=== PATIENT | male | born 1935 | race Caucasian/White ===

== ENCOUNTER 2017-09-23 12:04 | Observation (INO) ==
--- NOTE | 2017-09-23 13:28 | History & Physical Report ---
*Admission Date: 09/23/17 <Arcelia Augustin 09/23/17 13:28> *Chief complaint: abdominal pain <Arcelia Augustin 09/23/17 13:28> *History of present illness: Mr. Cross is a 81yo male with a hx of HTN who began having RUQ pain yesterday along with some nausea. He has felt bloated as well. He presented to the office of [facility] for evaluation. His WBC was elevated. He had a RUQ U/S showing cholecystitis and cholelithiasis. He will be admitted for a surgical consult. <Arcelia Augustin 09/23/17 15:13> [facility] History Medical History: Reports:: Hypertension, Transient Ischemic Attacks (TIA) < Arcelia Augustin 09/23/17 13:42> Laterality Cases: Bilateral: Cataract <Arcelia Augustin 09/23/17 13:42> - *Social History Smoking Status: Never smoker <Arcelia Augustin 09/23/17 13:42> *Family Hx:: no Coronary Artery Disease, no Heart Attack, no Hyperlipidemia, no Hypertension, no Stroke <Arcelia Augustin 09/23/17 13:42> Review of Systems - Constitutional Reports weakness, Denies chills, Denies fatigue, Denies fever(s) <Arcelia Augustin 09/23/17 13:42> - Eyes Denies blurry vision, Denies double vision <Arcelia Augustin 09/23/17 13:42> - ENT Denies nasal congestion, Denies sore throat <Arcelia Augustin 09/23/17 13:42> - *Cardiovascular Denies chest pain, Denies shortness of breath, Denies leg swelling <Arcelia Augustin 09/23/17 13:42> - *Respiratory Denies cough, Denies shortness of breath <Arcelia Augustin 09/23/17 13:42> - *Gastrointestinal Reports abdominal pain (RUQ), Reports nausea, Denies loose stools, Denies vomiting <Arcelia Augustin 09/23/17 13:42> - *Genitourinary Denies difficulty urinating, Denies painful urination <Arcelia Augustin 13:42> - *Musculoskeletal Denies joint pain <Arcelia Augustin - 09/23/17 13:42> - *Neurologic Denies headache(s), Denies dizziness <Arcelia Augustin - 09/23/17 13:42> Meds Home Medications Medication Instructions Recorded Confirmed Type Losartan Potassium 100 mg PO DAILY 09/23/17 09/23/17 History <Clayton Avalos - 09/23/17 15:15> Allergies Allergy/AdvReac Type Severity Reaction Status Date / Time No Known Allergies Allergy Unverified 03/16/17 14:29 <Clayton Avalos - 09/23/17 15:15> Exam Vital signs and Labs for Last 24 Hours: Temp Pulse Resp BP Pulse Ox 97.2 F L 52 L 20 180/90 95 09/23/17 14:02 09/23/17 14:02 09/23/17 14:02 09/23/17 14:02 09/23/17 14:02 Laboratory Results - last 24 hr 09/23/17 13:50: WBC 13.7 H, RBC 4.78, Hgb 14.2, Hct 42.9, MCV 89.8, MCH 29.7, MCHC 33.1, RDW 13.3, Plt Count 228, MPV 7.8, Neut % (Auto) 80.0, Lymph % (Auto) 14.0, [place] % (Auto) 4.1, Eos % (Auto) 1.6, Baso % (Auto) 0.2, Neut # (Auto) 11.0 H, Lymph # (Auto) 1.9, [place] # (Auto) 0.6, Eos # (Auto) 0.2, Baso # (Auto) 0.0 09/23/17 13:50: Sodium 138, Potassium 3.9, Chloride 103, Carbon Dioxide 26, Anion Gap 12.9, BUN 12, Creatinine 1.06, Estimated Creat Clear 83, Estimated GFR 67, Est GFR ( Amer) 82, Glucose 107 H, Calcium 8.3 L, Total Bilirubin 0.9, AST 22, ALT 20, Alkaline Phosphatase 91, Total Protein 7.3, Albumin 3.4, Globulin 3.9 H, Albumin/Globulin Ratio 0.9 L, Amylase 63 09/23/17 13:50: Lipase 101 <Clayton Avalos - 09/23/17 15:15> I & O for Last 24 hours: Intake & Output 09/21/17 09/22/17 09/23/17 09/24/17 11:59 11:59 11:59 11:59 Weight 230 lb 2 oz <Clayton Avalos - 09/23/17 15:15> - Constitutional no acute distress <Arcelia Augustin 09/23/17 13:42> - *Routine HEENT Exam Head: Present: normocephalic, atraumatic <Arcelia Augustin 09/23/17 13:42> Eye: Present: EOMI, PERRL <Arcelia Augustin 09/23/17 13:42> ENT: Present: mucous membranes dry <Arcelia Augustin 09/23/17 13:42> - *Routine Neck Exam Present: supple, full ROM. Absent: carotid bruit <Arcelia Augustin 09/23/17 13 :42> - *Routine Respiratory Exam Present: CTA bilaterally <Arcelia Augustin 09/23/17 13:42> - *Routine Cardiovascular Exam Present: RRR <Arcelia Augustin 09/23/17 13:42> - *Routine Abdominal Exam Present: soft, normoactive bowel sounds, tenderness (RUQ) <Arcelia Augustin 13:42> - *Routine Extremities Exam Absent: edema <Arcelia Augustin 09/23/17 13:42> - *Routine Skin Exam Present: intact <Arcelia Augustin 09/23/17 13:42> - *Routine Neurological Exam Present: alert, oriented X3 <Arcelia Augustin 09/23/17 13:42> H&P: Result - Labs Labs: Short CBC 09/23/17 Range/Units 13:50 WBC 13.7 H (4.8-10.8) K/mm3 Hgb 14.2 (14.1-18.0) g/dL Hct 42.9 (42.0-52.0) % Plt Count 228 (142-424) K/mm3 BMP 09/23/17 13:50 Sodium 138 Potassium 3.9 Chloride 103 Carbon Dioxide 26 BUN 12 Creatinine 1.06 Glucose 107 H Calcium 8.3 L Liver Function 09/23/17 Range/Units 13:50 Total Bilirubin 0.9 (0.2-1.0) mg/dL AST 22 (15-37) U/L ALT 20 (12-78) U/L Alkaline Phosphatase 91 (46-116) U/L Albumin 3.4 (3.4-5.0) gm/dL <Clayton Avalos - 09/23/17 15:15> Assessment and Plan (1) Cholecystitis Current visit: Yes Status: Acute Category: Medical Code(s): K81.9 - Cholecystitis, unspecified (2) Cholelithiasis Current visit: Yes Status: Acute Category: Medical Code(s): K80.20 - Calculus of gallbladder without cholecystitis without obstruction (3) Hypertension Current visit: Yes Status: Acute Category: Medical Code(s): I10 - Essential (primary) hypertension <Clayton Avalos - 09/23/17 15:15> (1) Cholecystitis Current visit: Yes Status: Acute Category: Medical Code(s): K81.9 - Cholecystitis, unspecified (2) Cholelithiasis Current visit: Yes Status: Acute Category: Medical Code(s): K80.20 - Calculus of gallbladder without cholecystitis without obstruction (3) Hypertension Current visit: Yes Status: Acute Category: Medical Code(s): I10 - Essential (primary) hypertension <Arcelia Augustin - 09/23/17 15:12> - Assessment and plan all Dx Assessment and Plan for all problems:: Saw patient agree with above note. Case discussed with Dr. Poon. Pt started on Zosyn. <Clayton Avalos - 09/23/17 15:15> Call report on RUQ U/S showed cholecystitis and cholelithiasis. The patient will be admitted and started on IVF's and antiemetics. Surgery will be consulted. <Arcelia Augustin - 09/23/17 15:13>
[2017-09-23 14:07] LABS: Basophils % 0.2 % (0.1-2.0); Eosinophils # 0.2 K/mm3 (0.0-0.4); Eosinophils % 1.6 % (0.1-12.0); Hematocrit 42.9 % (42.0-52.0); Hemoglobin 14.2 g/dL (14.1-18.0); Lymphocytes # 1.9 K/mm3 (0.7-4.5); Mean Corpuscular HGB Conc 33.1 g/dL (31.8-35.4); Mean Corpuscular Hemoglobin 29.7 pg (27.0-31.2); Mean Corpuscular Volume 89.8 fl (80-94); Mean Platelet Volume 7.8 fl (7.4-10.4); Monocytes # 0.6 K/mm3 (0.1-1.0); Monocytes % 4.1 % (1.7-9.3); Platelet Count 228 K/mm3 (142-424); Red Blood Count 4.78 M/mm3 (4.60-6.20); Red Cell Distribution Width 13.3 % (11.5-17.5); White Blood Count 13.7 K/mm3 (4.8-10.8)
--- NOTE | 2017-09-23 14:09 | Consult Report ---
*Admission Date: 09/23/17 *Chief complaint: Right upper quadrant pain *History of present illness: This is a 81-year-old gentleman seen in consultation from Dr. Avalos for acute calculus cholecystitis. Please see a forwarded copy of the patient's history of present illness from his admission H&P (below): Mr. Cross is a 81yo male with a hx of HTN who began having RUQ pain yesterday along with some nausea. He has felt bloated as well. He presented to the office of [facility] for evaluation. His WBC was elevated. He had a RUQ U/S showing cholecystitis and cholelithiasis. He will be admitted for a surgical consult. Review of Systems - *Neurologic Reports weakness, Denies headache(s), Denies dizziness [facility] History Medical History: Reports:: Hypertension, Transient Ischemic Attacks (TIA) Denies:: Cancer, Diabetes Mellitus Type 1, Diabetes Mellitus Type 2, MRSA Laterality Cases: Bilateral: Cataract Other Surgeries: Yes: No Previous Surgery Amputation: No - *Social History Educational Level: Completed High School Smoking Status: Never smoker Alcohol Intake: never Occupational Status: retired Household Members: spouse - Psychiatric History Expresses thoughts of harming self/others: None Suicide Plan Description: No Plan *Family Hx:: no Coronary Artery Disease, no Heart Attack, no Hyperlipidemia, no Hypertension, no Stroke Meds Home Medications Medication Instructions Recorded Confirmed Type Losartan Potassium 100 mg PO DAILY 09/23/17 09/23/17 History Allergies Allergy/AdvReac Type Severity Reaction Status Date / Time No Known Allergies Allergy Unverified 03/16/17 14:29 Exam Vital signs and Labs for Last 24 Hours: Temp Pulse Resp BP Pulse Ox 97.2 F L 52 L 20 180/90 95 09/23/17 14:02 09/23/17 14:02 09/23/17 14:02 09/23/17 14:02 09/23/17 14:02 I & O for Last 24 hours: Intake & Output 09/21/17 09/22/17 09/23/17 09/24/17 11:59 11:59 11:59 11:59 Weight 230 lb 2 oz - Constitutional no acute distress - *Routine Respiratory Exam Absent: respiratory distress - *Routine Cardiovascular Exam Present: RRR - *Routine Abdominal Exam Present: soft, tenderness Comments: RUQ TTP Results - Imaging US - abdomen: report reviewed Assessment and Plan (1) Cholecystitis Current visit: Yes Status: Acute Category: Medical Code(s): K81.9 - Cholecystitis, unspecified (2) Hypertension Current visit: Yes Status: Acute Category: Medical Code(s): I10 - Essential (primary) hypertension (3) Cholelithiasis Current visit: Yes Status: Acute Category: Medical Code(s): K80.20 - Calculus of gallbladder without cholecystitis without obstruction (4) Acute cholecystitis without calculus Current visit: Yes Status: Acute Category: Surgical Code(s): K81.0 - Acute cholecystitis IV antibiotics NPO after midnight for cholecystectomy tomorrow -I have discussed the risks and benefits of operative intervention patient agrees to proceed
[2017-09-23 14:16] LABS: Albumin Level 3.4 gm/dL (3.4-5.0); Albumin/Globulin Ratio 0.9 (1.1-1.8); Anion Gap 12.9 mEq/L (5-15); Bilirubin,Total 0.9 mg/dL (0.2-1.0); Calcium 8.3 mg/dL (8.5-10.1); Globulin 3.9 gm/dl (1.3-3.2); Potassium 3.9 mmoL/L (3.5-5.1); Total Protein,Serum 7.3 gm/dL (6.4-8.2)
--- NOTE | 2017-09-23 14:27 | Pharmacy Consult Notes ---
[facility] Pharmacy VTE Monitoring - Patient Demographics Admission date: 09/23/17 Report Date: 09/23/17 Time: 14:27 Allergies/Adverse Reactions: Patient Allergies No Known Allergies Allergy (Unverified 03/16/17 14:29) Height: 1.78 m Weight: 104.383 kg Patient Problems: Current Active Problems Cholecystitis (Acute) Hypertension (Acute) Cholelithiasis (Acute) Acute cholecystitis without calculus (Acute) - VTE Risk Labs: VTE Related Lab Results Hgb 14.2 g/dL (14.1-18.0) 09/23/17 13:50 Hct 42.9 % (42.0-52.0) 09/23/17 13:50 Plt Count 228 K/mm3 (142-424) 09/23/17 13:50 BUN 12 mg/dL (7-18) 09/23/17 13:50 Creatinine 1.06 mg/dL (0.70-1.30) 09/23/17 13:50 Estimated Creat Clear 83 mL/min (0-300) 09/23/17 13:50 Was VTE Risk Assessment Performed: Yes VTE Score: 1 VTE Risk Level: Very Low Risk Clinical Trial Participant: No - Prophylaxis VTE Prophylaxis Ordered?: Yes Types of VTE Prophylaxis: TEDS Knee High
--- NOTE | 2017-09-24 07:06 | Progress Note ---
Subjective Patient reports: feels better Exam Vital signs and Labs for Last 24 Hours: Temp Pulse Resp BP Pulse Ox 98.0 F 69 14 131/62 98 09/24/17 05:03 09/24/17 05:03 09/24/17 05:03 09/24/17 05:03 09/24/17 05:03 Laboratory Results - last 24 hr 09/23/17 13:50: WBC 13.7 H, RBC 4.78, Hgb 14.2, Hct 42.9, MCV 89.8, MCH 29.7, MCHC 33.1, RDW 13.3, Plt Count 228, MPV 7.8, Neut % (Auto) 80.0, Lymph % (Auto) 14.0, [place] % (Auto) 4.1, Eos % (Auto) 1.6, Baso % (Auto) 0.2, Neut # (Auto) 11.0 H, Lymph # (Auto) 1.9, [place] # (Auto) 0.6, Eos # (Auto) 0.2, Baso # (Auto) 0.0 09/23/17 13:50: Sodium 138, Potassium 3.9, Chloride 103, Carbon Dioxide 26, Anion Gap 12.9, BUN 12, Creatinine 1.06, Estimated Creat Clear 83, Estimated GFR 67, Est GFR ( Amer) 82, Glucose 107 H, Calcium 8.3 L, Total Bilirubin 0.9, AST 22, ALT 20, Alkaline Phosphatase 91, Total Protein 7.3, Albumin 3.4, Globulin 3.9 H, Albumin/Globulin Ratio 0.9 L, Amylase 63 09/23/17 13:50: Lipase 101 I & O for Last 24 hours: Intake & Output 09/21/17 09/22/17 09/23/17 09/24/17 11:59 11:59 11:59 11:59 Intake Total 1447 / 1447 Balance 1447 / 1447 Weight 230 lb 2 oz - Constitutional no acute distress - *Routine Respiratory Exam Absent: respiratory distress - *Routine Cardiovascular Exam Present: RRR - *Routine Abdominal Exam Present: soft Progress Note: A&P (1) Cholecystitis Status: Acute Assessment and plan: continue abx laparoscopic cholecystectomy later today Current Visit: Yes (2) Cholelithiasis Status: Acute Current Visit: Yes (3) Hypertension Status: Acute Current Visit: Yes
--- NOTE | 2017-09-24 07:57 | Progress Note ---
<Arcelia Augustin - Last Filed: 09/24/17 07:55> Internal Medicine - PN: Subj *Date: 09/24/17 *Time: 07:55 Interval history: Patient is doing well today. He states his pain has almost resolved. He slept well last night. He is n.p.o. today for surgery. Exam Vital signs and Labs for Last 24 Hours: Temp Pulse Resp BP Pulse Ox 97.4 F L 66 18 147/93 97 09/24/17 07:51 09/24/17 07:51 09/24/17 07:51 09/24/17 07:51 09/24/17 07:51 Laboratory Results - last 24 hr 09/23/17 13:50: WBC 13.7 H, RBC 4.78, Hgb 14.2, Hct 42.9, MCV 89.8, MCH 29.7, MCHC 33.1, RDW 13.3, Plt Count 228, MPV 7.8, Neut % (Auto) 80.0, Lymph % (Auto) 14.0, [place] % (Auto) 4.1, Eos % (Auto) 1.6, Baso % (Auto) 0.2, Neut # (Auto) 11.0 H, Lymph # (Auto) 1.9, [place] # (Auto) 0.6, Eos # (Auto) 0.2, Baso # (Auto) 0.0 09/23/17 13:50: Sodium 138, Potassium 3.9, Chloride 103, Carbon Dioxide 26, Anion Gap 12.9, BUN 12, Creatinine 1.06, Estimated Creat Clear 83, Estimated GFR 67, Est GFR ( Amer) 82, Glucose 107 H, Calcium 8.3 L, Total Bilirubin 0.9, AST 22, ALT 20, Alkaline Phosphatase 91, Total Protein 7.3, Albumin 3.4, Globulin 3.9 H, Albumin/Globulin Ratio 0.9 L, Amylase 63 09/23/17 13:50: Lipase 101 I & O for Last 24 hours: Intake & Output 09/21/17 09/22/17 09/23/17 09/24/17 11:59 11:59 11:59 11:59 Intake Total 1447 / 1447 Balance 1447 / 1447 Weight 230 lb 2 oz - Constitutional no acute distress - *Routine Respiratory Exam Present: CTA bilaterally - *Routine Cardiovascular Exam Present: RRR - *Routine Abdominal Exam Present: soft, normoactive bowel sounds, tenderness (mild in the RUQ) - *Routine Extremities Exam Absent: edema Assessment and Plan (1) Cholecystitis Current visit: Yes Status: Acute Category: Medical Code(s): K81.9 - Cholecystitis, unspecified (2) Cholelithiasis Current visit: Yes Status: Acute Category: Medical Code(s): K80.20 - Calculus of gallbladder without cholecystitis without obstruction (3) Hypertension Current visit: Yes Status: Acute Category: Medical Code(s): I10 - Essential (primary) hypertension - Assessment and plan all Dx Assessment and Plan for all problems:: Cholecystectomy planned for today. <Clayton Avalos - Last Filed: 09/24/17 08:42> Internal Medicine - PN: Jose *Date: 09/24/17 *Time: 08:41 Exam Vital signs and Labs for Last 24 Hours: Temp Pulse Resp BP Pulse Ox 97.4 F L 66 18 147/93 97 09/24/17 08:00 09/24/17 08:00 09/24/17 08:00 09/24/17 08:00 09/24/17 08:00 Laboratory Results - last 24 hr 09/23/17 13:50: WBC 13.7 H, RBC 4.78, Hgb 14.2, Hct 42.9, MCV 89.8, MCH 29.7, MCHC 33.1, RDW 13.3, Plt Count 228, MPV 7.8, Neut % (Auto) 80.0, Lymph % (Auto) 14.0, [place] % (Auto) 4.1, Eos % (Auto) 1.6, Baso % (Auto) 0.2, Neut # (Auto) 11.0 H, Lymph # (Auto) 1.9, [place] # (Auto) 0.6, Eos # (Auto) 0.2, Baso # (Auto) 0.0 09/23/17 13:50: Sodium 138, Potassium 3.9, Chloride 103, Carbon Dioxide 26, Anion Gap 12.9, BUN 12, Creatinine 1.06, Estimated Creat Clear 83, Estimated GFR 67, Est GFR ( Amer) 82, Glucose 107 H, Calcium 8.3 L, Total Bilirubin 0.9, AST 22, ALT 20, Alkaline Phosphatase 91, Total Protein 7.3, Albumin 3.4, Globulin 3.9 H, Albumin/Globulin Ratio 0.9 L, Amylase 63 09/23/17 13:50: Lipase 101 I & O for Last 24 hours: Intake & Output 09/21/17 09/22/17 09/23/17 09/24/17 11:59 11:59 11:59 11:59 Intake Total 1447 / 1447 Balance 1447 / 1447 Weight 230 lb 2 oz Assessment and Plan (1) Cholecystitis Current visit: Yes Status: Acute Category: Medical Code(s): K81.9 - Cholecystitis, unspecified (2) Cholelithiasis Current visit: Yes Status: Acute Category: Medical Code(s): K80.20 - Calculus of gallbladder without cholecystitis without obstruction (3) Hypertension Current visit: Yes Status: Acute Category: Medical Code(s): I10 - Essential (primary) hypertension - Assessment and plan all Dx Assessment and Plan for all problems:: Saw patient, agree with above note.
--- NOTE | 2017-09-24 14:36 | Progress Note ---
[facility] Anesthesia Checklist - Structural Data Admitted From: Home Planned Operative Procedure/s: donato jorge Consent for Planned Operative Procedure(s) Verified: Yes - Airway Assessment C-Spine Mobility Assessed: Yes TMJ Mobility Assessed: Yes Dentition: Poor Dentition - Neurological Assessment Level of Consciousness: Awake, Alert, Appropriate - Anesthesia Plan Anesthesia Risk discussed: Yes Anesthesia Plan: Verified ASA Class: II Anesthesia Type: General [facility] Anesthesia HX I have reviewed the patient's past medical history: Yes Medical History: Reports:: Hypertension, Transient Ischemic Attacks (TIA) Denies:: Cancer, Diabetes Mellitus Type 1, Diabetes Mellitus Type 2, MRSA Laterality Cases: Bilateral: Cataract Other Surgeries: Yes: No Previous Surgery Amputation: No *Family Hx:: no Coronary Artery Disease, no Heart Attack, no Hyperlipidemia, no Hypertension, no Stroke
--- NOTE | 2017-09-24 14:37 | Progress Note ---
[facility] Anesthesia Record Part I Intake, IV Amount: 1,500 Estimated blood loss (mL): 0 Urine output (mL): 0 Blood Pressure: 117/60 SaO2: 94 Pulse Rate: 57 Respiratory Rate: 12 Temperature: 97.8 F Patient is:: Awake, Stable Stable to PACU at:: 14:35
--- NOTE | 2017-09-24 14:37 | Operative Note ---
Date of procedure: 09/24/17 Pre-op Diagnosis:: Acute calculus cholecystitis Post-op Diagnosis:: Same Procedure performed:: Laparoscopic cholecystectomy Surgeon:: Mahendra Poon MD Seam Closer(s):: Myrna CUE SELECTOR:: Jack Cota Anesthesia: GETA Estimated blood loss (mL): 15 Operative findings:: Severe thickening and inflammation of gallbladder Gallbladder essentially filled with stones Endoloops (3) utilized to control the infundibulum Operative note:: After informed consent was obtained, the patient was taken to the operating room and placed in the supine position. General anesthesia was induced and his abdomen was prepped and draped in a sterile fashion. Secondary to a small umbilical hernia, the decision was made to proceed with insufflation in the left upper quadrant. After infiltration with local anesthetic a small stab incision was made in the left upper quadrant and a Veress needle was placed in position. The abdomen was insufflated. After a small infraumbilical incision was made a 5 mm optical trocar was utilized to enter the abdomen. Under direct visualization, an 11 mm trocar was placed in the subxiphoid position. Two additional 5 mm trocars were placed in the right upper quadrant. The gallbladder was severely distended and thickened. Severe inflammation also noted. A small opening was made in the dome and some clear fluid was evacuated. The gallbladder was essentially "filled with stones". Dissection was extremely difficult and the decision was made to proceed in a "dome down approach" and utilize Endoloops at the infundibulum for control. Once the Endoloops were secured, harmonic madan were used to transect at the infundibulum. Multiple stones were noted within the gallbladder, but a number of stones spilled into the abdominal cavity and these were carefully retrieved. The gallbladder was placed in a retrieval bag and removed through the subxiphoid trocar site. The right upper quadrant was thoroughly irrigated. No active bleeding or bile leak was noted. The jennifer-close device was utilized to create somewhat of a closure at the patient's known umbilical defect by way of the infraumbilical incision. The subxiphoid site was reapproximated with 0 Ethibond. All wounds were irrigated and skin closed with 4-0 Monocryl. Steri- Strips were applied and the patient's anesthetic agents were reversed. He was extubated prior to transfer to recovery. Condition: stable Disposition: PACU Specimens:: Gallbladder and contents Complications:: No immediate
--- NOTE | 2017-09-24 14:38 | Progress Note ---
[facility] Anesthesia Record Part II Discharge Time: 15:05 Destination: floor PACU nurse assessment reviewed?: Yes Patient Condition:: Good Anesthesia Complications:: None
[2017-09-25 06:54] LABS: Basophils % 0.1 % (0.1-2.0); Eosinophils % 0.1 % (0.1-12.0); Hematocrit 37.8 % (42.0-52.0); Hemoglobin 12.1 g/dL (14.1-18.0); Lymphocytes # 1.3 K/mm3 (0.7-4.5); Lymphocytes % 9.7 K/mm3 (10-50); Mean Corpuscular HGB Conc 32.1 g/dL (31.8-35.4); Mean Corpuscular Hemoglobin 28.8 pg (27.0-31.2); Mean Corpuscular Volume 89.8 fl (80-94); Mean Platelet Volume 8.1 fl (7.4-10.4); Monocytes # 0.5 K/mm3 (0.1-1.0); Monocytes % 3.8 % (1.7-9.3); Neutrophils # 11.3 K/mm3 (1.8-7.8); Neutrophils % 86.4 % (37.0-80.0); Platelet Count 190 K/mm3 (142-424); Red Blood Count 4.21 M/mm3 (4.60-6.20); Red Cell Distribution Width 13.1 % (11.5-17.5); White Blood Count 13.1 K/mm3 (4.8-10.8)
[2017-09-25 07:03] LABS: Albumin Level 2.8 gm/dL (3.4-5.0); Albumin/Globulin Ratio 0.8 (1.1-1.8); Anion Gap 12.2 mEq/L (5-15); Bilirubin,Total 0.6 mg/dL (0.2-1.0); Calcium 7.6 mg/dL (8.5-10.1); Globulin 3.6 gm/dl (1.3-3.2); Potassium 4.2 mmoL/L (3.5-5.1); Total Protein,Serum 6.4 gm/dL (6.4-8.2)
[2017-09-25 07:26] VITALS: BP 131/67
--- NOTE | 2017-09-25 08:30 | Progress Note ---
Subjective Patient reports: feels better Narrative: Patient feels very well. He has had no abdominal pain. He has eaten a regular food. He is dressed and ready to go home. Exam Vital signs and Labs for Last 24 Hours: Temp Pulse Resp BP Pulse Ox 98.0 F 60 16 131/67 95 09/25/17 07:25 09/25/17 07:25 09/25/17 07:25 09/25/17 07:25 09/25/17 07:25 Laboratory Results - last 24 hr 09/25/17 06:14: WBC 13.1 H, RBC 4.21 L, Hgb 12.1 L, Hct 37.8 L, MCV 89.8, MCH 28.8, MCHC 32.1, RDW 13.1, Plt Count 190, MPV 8.1, Neut % (Auto) 86.4 H, Lymph % (Auto) 9.7 L, [place] % (Auto) 3.8, Eos % (Auto) 0.1, Baso % (Auto) 0.1, Neut # ( Auto) 11.3 H, Lymph # (Auto) 1.3, [place] # (Auto) 0.5, Eos # (Auto) 0.0, Baso # ( Auto) 0.0 09/25/17 06:14: Sodium 139, Potassium 4.2, Chloride 106, Carbon Dioxide 25, Anion Gap 12.2, BUN 15, Creatinine 1.17, Estimated Creat Clear 76, Estimated GFR 60, Est GFR ( Amer) 73, Glucose 126 H, Calcium 7.6 L, Total Bilirubin 0.6, AST 47 H D, ALT 52 D, Alkaline Phosphatase 66, Total Protein 6.4 , Albumin 2.8 L, Globulin 3.6 H, Albumin/Globulin Ratio 0.8 L I & O for Last 24 hours: Intake & Output 09/22/17 09/23/17 09/24/17 09/25/17 11:59 11:59 11:59 11:59 Intake Total 1447 / 1447 3340 / 3340 Balance 1447 / 1447 3340 / 3340 Weight 230 lb 2 oz - *Routine Abdominal Exam Present: soft Comments: Dressings are clean and intact. Progress Note: A&P (1) Cholecystitis Status: Acute Current Visit: Yes (2) Cholelithiasis Status: Acute Assessment and plan: Okay for discharge home to follow-up with Dr. Poon in a week or so. Current Visit: Yes (3) Hypertension Status: Acute Current Visit: Yes
--- NOTE | 2017-09-25 08:37 | Progress Note ---
Internal Medicine - PN: Subj *Date: 09/25/17 *Time: 08:35 Interval history: Patient did well overnight, tolerating a regular diet, ready to go home. Exam Vital signs and Labs for Last 24 Hours: Temp Pulse Resp BP Pulse Ox 98.0 F 60 16 131/67 95 09/25/17 07:25 09/25/17 07:25 09/25/17 07:25 09/25/17 07:25 09/25/17 07:25 Laboratory Results - last 24 hr 09/25/17 06:14: WBC 13.1 H, RBC 4.21 L, Hgb 12.1 L, Hct 37.8 L, MCV 89.8, MCH 28.8, MCHC 32.1, RDW 13.1, Plt Count 190, MPV 8.1, Neut % (Auto) 86.4 H, Lymph % (Auto) 9.7 L, [place] % (Auto) 3.8, Eos % (Auto) 0.1, Baso % (Auto) 0.1, Neut # ( Auto) 11.3 H, Lymph # (Auto) 1.3, [place] # (Auto) 0.5, Eos # (Auto) 0.0, Baso # ( Auto) 0.0 09/25/17 06:14: Sodium 139, Potassium 4.2, Chloride 106, Carbon Dioxide 25, Anion Gap 12.2, BUN 15, Creatinine 1.17, Estimated Creat Clear 76, Estimated GFR 60, Est GFR ( Amer) 73, Glucose 126 H, Calcium 7.6 L, Total Bilirubin 0.6, AST 47 H D, ALT 52 D, Alkaline Phosphatase 66, Total Protein 6.4 , Albumin 2.8 L, Globulin 3.6 H, Albumin/Globulin Ratio 0.8 L I & O for Last 24 hours: Intake & Output 09/22/17 09/23/17 09/24/17 09/25/17 11:59 11:59 11:59 11:59 Intake Total 1447 / 1447 3340 / 3340 Balance 1447 / 1447 3340 / 3340 Weight 230 lb 2 oz - Constitutional no acute distress (conversant) - *Routine HEENT Exam ENT: Present: mucous membranes moist - *Routine Respiratory Exam Present: CTA bilaterally - *Routine Cardiovascular Exam Present: RRR Assessment and Plan (1) Cholecystitis Current visit: Yes Status: Acute Category: Medical Code(s): K81.9 - Cholecystitis, unspecified (2) Cholelithiasis Current visit: Yes Status: Acute Category: Medical Code(s): K80.20 - Calculus of gallbladder without cholecystitis without obstruction (3) Hypertension Current visit: Yes Status: Acute Category: Medical Code(s): I10 - Essential (primary) hypertension - Assessment and plan all Dx Assessment and Plan for all problems:: Case discussed with KOURTNEY Neumann for discharge today, will use OTC Tylenol and /or Motrin for pain relief.
[2017-09-25 09:37] LABS: Lymphocytes % 5 % (10-50); Monocytes % 5 % (2-9); Neutrophils % 90 % (42-76); Total Cells Counted 100
[2017-09-25 09:38] LABS: RBC Morphology Normal
--- NOTE | 2017-09-26 21:37 | Discharge Summary ---
General - General Admission date:: 09/23/17 Discharge date: 09/25/17 HPI HPI: Mr. Cross is a 81yo male with a hx of HTN who began having RUQ pain yesterday along with some nausea. He has felt bloated as well. He presented to the office of [facility] for evaluation. His WBC was elevated. He had a RUQ U/S showing cholecystitis and cholelithiasis. He will be admitted for a surgical consult. Hospital Course Hospital Course: The patient was seen in consultation by Dr. Poon. He was admitted and started on IV abx. By the next day, he felt much better and his abdominal pain had improved. He had a lap cholecystectomy performed by Dr. Poon and tolerated this well. The day after surgery he was up and moving and tolerating a diet. He was stable to be discharged home. Objective Vital signs: Temp Pulse Resp BP Pulse Ox 98.0 F 60 16 131/67 95 09/25/17 07:25 09/25/17 07:25 09/25/17 07:25 09/25/17 07:25 09/25/17 07:25 Narrative: - Constitutional no acute distress - *Routine HEENT Exam Head: Present: normocephalic, atraumatic Eye: Present: EOMI, PERRL ENT: Present: mucous membranes dry - *Routine Neck Exam Present: supple, full ROM. Absent: carotid bruit - *Routine Respiratory Exam Present: CTA bilaterally - *Routine Cardiovascular Exam Present: RRR - *Routine Abdominal Exam Present: soft, normoactive bowel sounds, tenderness (RUQ) - *Routine Extremities Exam Absent: edema - *Routine Skin Exam Present: intact - *Routine Neurological Exam Present: alert, oriented X3 DS: Diagnosis - Discharge Diagnosis (1) Cholecystitis Status: Acute (2) Cholelithiasis Status: Acute (3) Hypertension Status: Acute (4) Status post laparoscopic cholecystectomy Status: Acute Discharge Plan - Patient Discharge Instructions ACTIVITY: Continue current activity DIET: continue same diet Patient Instructions: Cholecystectomy -- Laparoscopic Surgery - Follow up Plan Follow up with: Mahendra Poon MD [Staff Physician] - 10/05/17 Disposition: Home, Self-Skilled Nursing Medications: Home Medications Medication Instructions Recorded Confirmed Type Losartan Potassium 100 mg PO DAILY 09/23/17 09/23/17 History Prescriptions/Medication Reconciliation: Continue Losartan Potassium 100 mg PO DAILY
== END 2017-09-25 09:40 | disposition home or self-care (01) ==
LOC: 2ND 12:04 → RAD 12:04
PROVIDERS: ADMIT Family Medicine; ATTEND Family Medicine

== ENCOUNTER → 2018-05-19 09:59 | Outpatient (CLI) | payer MEDICARE, SELFPAY ==
--- NOTE | 2018-05-19 10:08 | XR_ITS ---
EXAM: XR lumbar spine min 4V HISTORY: ITS.REASON: LEFT SIDED LOW BACK PAIN ORDERING PHYSICIAN: Clayton Avalos MD PATIENT AGE: 82 years COMPARISON: None FINDINGS: There is straightening of lumbar lordosis. Multilevel degenerative disc disease is present from T12-L1 and at L5-S1. There is 7 mm anterolisthesis of L4 on L5. There are prominent anterior osteophytes T12-L1 and at L5-S1. No fracture or dislocation. No lytic or blastic change. IMPRESSION: 1. No acute fracture. 2. Multilevel lumbar spondylosis with osteophytosis and degenerative disc disease as detailed above
== END ==
PROVIDERS: PCP Family Medicine; Visit Provider Family Medicine
DX: M54.5 Low back pain (principal)
CPT/HCPCS: 72110

== ENCOUNTER → 2018-05-26 08:57 | Outpatient (CLI) | payer MEDICARE, SELFPAY ==
--- NOTE | 2018-05-26 09:02 | MR_ITS ---
MR lumbar spine wo con, MR 3-d myelogram/MRCP HISTORY: Low back pain and left hip pain X 2 weeks. Pain is severe when laying down. LT hip pain is severe. ITS.REASON: ACUTE LEFT-SIDED LOW BACK PAIN WITHOUT SCIATICA ORDERING PHYSICIAN: Clayton Avalos MD PATIENT AGE: 82 years Comparison: Lumbar DEXA 05/19/18. TECHNIQUE: Standard multiplanar multiecho sequences are performed without contrast. 3-D MIP and myelographic images are also rendered and reviewed FINDINGS: There is normal alignment. The spinal cord is at the L1-L2 level. T11-T12: Mild degenerative disc disease. There is facet and ligamentum flavum hypertrophy with canal stenosis and bilateral lateral recess and foraminal narrowing. There is minimal flattening of the cord anteriorly. T12-L1: Mild degenerative disc disease. L1-L2: Mild degenerative disc disease. L2-L3: Degenerative disc disease with facet and ligamentum flavum hypertrophy with mild bulging disc with mild bilateral foraminal narrowing. Anterior osteophytes are present at this level. L3-L4: Degenerative disc disease with bulging disc along with moderate facet and ligamentum flavum hypertrophy. There is canal stenosis at this level along with moderate to severe bilateral lateral recess narrowing and foraminal narrowing. L4-L5: There is 4 mm anterolisthesis of L4 on L5 with bulging disc along with severe facet and ligamentum flavum hypertrophy with severe canal stenosis and severe bilateral lateral recess and foraminal narrowing. The transverse dimension of the canal at this level is approximately 5 mm. L5-S1: Degenerative disc disease with bulging disc along with a broad-based central disc protrusion slightly eccentric toward the left. There is 7 mm retrolisthesis of L5 on S1. There is severe bilateral foraminal narrowing from facet hypertrophic change and the bulging disc. IMPRESSION: 1. Abnormal MRI lumbar spine with multilevel lumbar spondylosis with degenerative disc disease along with facet and ligamentum flavum hypertrophy with lateral recess and foraminal narrowing. Please see above for detailed description at each level. 2. There is canal stenosis at T 11 T12, L3-L4, and L4-L5. This is most severe at L4-L5. There is associated lateral recess and foraminal narrowing at these levels. 3. Degenerative disc disease with bulging disc along with a broad-based central disc protrusion slightly eccentric toward the left. There is 7 mm retrolisthesis of L5 on S1. There is severe bilateral foraminal narrowing from facet hypertrophic change and the bulging disc
== END ==
PROVIDERS: PCP Family Medicine; Visit Provider Family Medicine
DX: M54.5 Low back pain (principal)
CPT/HCPCS: 72148; 76376

== ENCOUNTER → 2018-05-30 08:59 | Outpatient (POV) | payer MEDICARE, SELFPAY ==
[2018-05-30 09:13] VITALS: BP 165/90; PULSE 68; RESP 18; O2SAT 99
--- NOTE | 2018-05-30 12:04 | HMH.PMCON ---
Assessment and Plan (1) Degenerative disc disease Current visit: Yes Status: Chronic Qualifiers: Spinal region: lumbar Qualified Code(s): M51.36 - Other intervertebral disc degeneration, lumbar region Category: Medical (2) Bulging disc Current visit: Yes Status: Chronic Category: Medical (3) Lumbar radiculopathy Current visit: Yes Status: Chronic Category: Medical Code(s): M54.16 - Radiculopathy, lumbar region - Assessment and plan all Dx Assessment and Plan for all problems:: We will schedule the patient for an L5-S1 lumbar epidural steroid injection. I will follow-up with the patient after his injection and reassess his symptoms at that time. Dr. Healy has reviewed this note and agrees with this plan of care. This note was dictated using voice recognition software and may contain errors or omissions HPI - Data of Consult Consult date: 05/30/18 Requesting Physician: Seble Prabhakar APRN Primary Care Provider: Clayton Avalos MD - Consult Narrative Reason for consult: Back pain History of present illness: Mr. Cross is a 82 year old male presents today to discuss his low back and left leg pain. Patient was chopping wood a a few weeks ago and had an increase in his low back pain and left leg pain. He has left leg numbness and weakness. Patient states increased activity makes his pain worse while rest and medication decrease it. Patient has an abnormal MRI showing a disc bulge at L5-S1 eccentric towards the left. Patient and I discussed epidural injections he is interested in pursuing this. He is currently on anti-inflammatories. He is not on any anticoagulation therapy. He rates his pain today a 0 out of 10 when he is sitting however he can get up to an 8 out of 10 during activity and without medications. CC: Seble Prabhakar APRN [facility] History I have reviewed the patient's past medical history: Yes Medical History: Reports:: Hypertension, Transient Ischemic Attacks (TIA) Denies:: Cancer, Diabetes Mellitus Type 1, Diabetes Mellitus Type 2, MRSA Other Surgeries: Yes: No Previous Surgery, Cholecystectomy Amputation: No - *Social History Smoking Status: Never smoker Alcohol Intake: never *Occupational Status:: retired Housing: house Household Members: spouse *Travel in the last 8 weeks: None - Psychiatric History Expresses thoughts of harming self/others: None Suicide Plan Description: No Plan Family Hx:: Unable to obtain Review of Systems - Review of Systems ROS General: no recent weight change, no fever, no sleep disturbances Respiratory: no cough, no shortness of air, no recurring pulmonary infections Cardiovascular/Peripheral Vascular: No chest pain, No palpitations, no edema, no shortness of breath. Gastrointestinal: no incontinence, normal bowel movements reported Genitourinary: no incontinence Musculoskeletal: Back pain, left leg pain Psychiatric: normal mood/ affect Neurological: Left leg weakness at times, [denies balance issues] Meds Home Medications Medication Instructions Recorded Confirmed Type Losartan Potassium 100 mg PO DAILY 09/23/17 09/23/17 History Allergies Allergy/AdvReac Type Severity Reaction Status Date / Time No Known Allergies Allergy Verified 10/05/17 13:33 Objective Vital signs: Pulse Resp BP Pulse Ox 68 18 165/90 H 99 05/30/18 09:13 05/30/18 09:13 05/30/18 09:13 05/30/18 09:13 Narrative: Physical Exam General: Alert and oriented x3, no acute distress, pleasant and cooperative, [on room air] Lungs: Resps E/U, Symmetrical chest expansion, Eyes: PERRL Musculoskeletal: Flexion and extension of lumbar spine somewhat guarded secondary to pain, deep tendon reflexes normal, strength in upper and lower extremities [5/5], slightly antalgic gait noted, positive left leg straight raise test at 30 degrees Neurological: speech clear, rn radiation oncology equal, no gross sensory deficits Op
--- NOTE | 2018-05-30 12:11 | P.CONS_ITS ---
Assessment and Plan (1) Degenerative disc disease Current visit: Yes Status: Chronic Qualifiers: Spinal region: lumbar Qualified Code(s): M51.36 - Other intervertebral disc degeneration, lumbar region Category: Medical (2) Bulging disc Current visit: Yes Status: Chronic Category: Medical (3) Lumbar radiculopathy Current visit: Yes Status: Chronic Category: Medical Code(s): M54.16 - Radiculopathy, lumbar region - Assessment and plan all Dx Assessment and Plan for all problems:: We will schedule the patient for an L5-S1 lumbar epidural steroid injection. I will follow-up with the patient after his injection and reassess his symptoms at that time. Dr. Healy has reviewed this note and agrees with this plan of care. This note was dictated using voice recognition software and may contain errors or omissions HPI - Data of Consult Consult date: 05/30/18 Requesting Physician: Seble Prabhakar APRN Primary Care Provider: Clayton Avalos MD - Consult Narrative Reason for consult: Back pain History of present illness: Mr. Cross is a 82 year old male presents today to discuss his low back and left leg pain. Patient was chopping wood a a few weeks ago and had an increase in his low back pain and left leg pain. He has left leg numbness and weakness. Patient states increased activity makes his pain worse while rest and medication decrease it. Patient has an abnormal MRI showing a disc bulge at L5-S1 eccentric towards the left. Patient and I discussed epidural injections he is interested in pursuing this. He is currently on anti-inflammatories. He is not on any anticoagulation therapy. He rates his pain today a 0 out of 10 when he is sitting however he can get up to an 8 out of 10 during activity and without medications. CC: Seble Prabhakar APRN [facility] History I have reviewed the patient's past medical history: Yes Medical History: Reports:: Hypertension, Transient Ischemic Attacks (TIA) Denies:: Cancer, Diabetes Mellitus Type 1, Diabetes Mellitus Type 2, MRSA Other Surgeries: Yes: No Previous Surgery, Cholecystectomy Amputation: No - *Social History Smoking Status: Never smoker Alcohol Intake: never *Occupational Status:: retired Housing: house Household Members: spouse *Travel in the last 8 weeks: None - Psychiatric History Expresses thoughts of harming self/others: None Suicide Plan Description: No Plan Family Hx:: Unable to obtain Review of Systems - Review of Systems ROS General: no recent weight change, no fever, no sleep disturbances Respiratory: no cough, no shortness of air, no recurring pulmonary infections Cardiovascular/Peripheral Vascular: No chest pain, No palpitations, no edema, no shortness of breath. Gastrointestinal: no incontinence, normal bowel movements reported Genitourinary: no incontinence Musculoskeletal: Back pain, left leg pain Psychiatric: normal mood/ affect Neurological: Left leg weakness at times, [denies balance issues] Meds Home Medications Medication Instructions Recorded Confirmed Type Losartan Potassium 100 mg PO DAILY 09/23/17 09/23/17 History Allergies Allergy/AdvReac Type Severity Reaction Status Date / Time No Known Allergies Allergy Verified 10/05/17 13:33 Objective Vital signs: Pulse Resp
== END ==
PROVIDERS: PCP Family Medicine; Visit Provider Clinical Nurse Specialist Family Health
DX: M51.16 Intervertebral disc disorders with radiculopathy, lumbar region (principal)
CPT/HCPCS: 99202

== ENCOUNTER → 2018-07-26 09:00 | Outpatient (POV) | payer MEDICARE, SELFPAY ==
[2018-07-26 09:12] VITALS: BP 188/97; PULSE 63; RESP 18; O2SAT 98; BMI 33.0
--- NOTE | 2018-07-26 14:06 | HMH.PAINSOAP ---
[facility] Pain Management SOAP Note Subjective:: Patient is a pleasant 82-year-old white male who presents today for follow-up after his lumbar epidural steroid injection. He rates pain a 0 out of 10 states he has 100% relief of his symptoms. He still having some heaviness in his leg at times. Patient would like to repeat the injection in several weeks. Patient is not on any anticoagulation. He says he is much more active than he used to be. ROS General: no recent weight change, no fever, no sleep disturbances Respiratory: no cough, no shortness of air, no recurring pulmonary infections Cardiovascular/Peripheral Vascular: No chest pain, No palpitations, no edema, no shortness of breath. Gastrointestinal: no incontinence, normal bowel movements reported Genitourinary: no incontinence Musculoskeletal: Back pain, leg pain Psychiatric: normal mood/ affect Neurological: [denies weakness in extremities], [denies balance issues] Objective:: Physical Exam General: Alert and oriented x3, no acute distress, pleasant and cooperative, [on room air] Lungs: Resps E/U, Symmetrical chest expansion, Eyes: PERRL Musculoskeletal: Flexion and extension of lumbar spine somewhat guarded secondary to pain, deep tendon reflexes normal, strength in upper and lower extremities [5/5], slightly antalgic gait noted Neurological: speech clear, supervisory air intercept controller equal, no gross sensory deficits Assessment:: Degenerative disc disease lumbar spine with lumbar radiculopathy symptoms Plan:: Given the efficacy of his first injection we will schedule an L4-L5 lumbar epidural steroid injection for the patient in the future. I will follow-up with the patient after his second injection and reassess his symptoms at that time. Dr. Healy has reviewed this note and agrees with this plan of care. This note was dictated using voice recognition software and may contain errors or omissions
--- NOTE | 2018-07-26 14:09 | P.CONS_ITS ---
[facility] Pain Management SOAP Note Subjective:: Patient is a pleasant 82-year-old white male who presents today for follow-up after his lumbar epidural steroid injection. He rates pain a 0 out of 10 states he has 100% relief of his symptoms. He still having some heaviness in his leg at times. Patient would like to repeat the injection in several weeks. Patient is not on any anticoagulation. He says he is much more active than he used to be. ROS General: no recent weight change, no fever, no sleep disturbances Respiratory: no cough, no shortness of air, no recurring pulmonary infections Cardiovascular/Peripheral Vascular: No chest pain, No palpitations, no edema, no shortness of breath. Gastrointestinal: no incontinence, normal bowel movements reported Genitourinary: no incontinence Musculoskeletal: Back pain, leg pain Psychiatric: normal mood/ affect Neurological: [denies weakness in extremities], [denies balance issues] Objective:: Physical Exam General: Alert and oriented x3, no acute distress, pleasant and cooperative, [on room air] Lungs: Resps E/U, Symmetrical chest expansion, Eyes: PERRL Musculoskeletal: Flexion and extension of lumbar spine somewhat guarded secondary to pain, deep tendon reflexes normal, strength in upper and lower extremities [5/5], slightly antalgic gait noted Neurological: speech clear, salt maker equal, no gross sensory deficits Assessment:: Degenerative disc disease lumbar spine with lumbar radiculopathy symptoms Plan:: Given the efficacy of his first injection we will schedule an L4-L5 lumbar epidural steroid injection for the patient in the future. I will follow-up with the patient after his second injection and reassess his symptoms at that time. Dr. Healy has reviewed this note and agrees with this plan of care. This note was dictated using voice recognition software and may contain errors or omissions
== END ==
PROVIDERS: PCP Family Medicine; Visit Provider Clinical Nurse Specialist Family Health
DX: M51.16 Intervertebral disc disorders with radiculopathy, lumbar region (principal)
CPT/HCPCS: 99212

== ENCOUNTER → 2018-08-15 13:36 | Outpatient (POV) | payer MEDICARE, SELFPAY ==
[2018-08-15 13:56] VITALS: BP 159/86; PULSE 102; RESP 18; O2SAT 99; BMI 33.0
--- NOTE | 2018-08-15 14:10 | HMH.PAINSOAP ---
[facility] Pain Management SOAP Note Subjective:: Patient is a pleasant 82-year-old white male who presents today for follow-up after his latest lumbar epidural steroid injection. Patient has no pain however he is having a lot of weakness and heaviness in his legs when he walks and stands patient does have ligamentum flavum hypertrophy and spinal stenosis. I believe he may be a good mild candidate we talked about finishing out the series of 3 injections and then moving forward with a potential mild procedure. ROS General: no recent weight change, no fever, no sleep disturbances Respiratory: no cough, no shortness of air, no recurring pulmonary infections Cardiovascular/Peripheral Vascular: No chest pain, No palpitations, no edema, no shortness of breath. Gastrointestinal: no incontinence, normal bowel movements reported Genitourinary: no incontinence Musculoskeletal: Back pain, leg pain Psychiatric: normal mood/ affect Neurological: [denies weakness in extremities], [denies balance issues] Objective:: Physical Exam General: Alert and oriented x3, no acute distress, pleasant and cooperative, [on room air] Lungs: Resps E/U, Symmetrical chest expansion, Eyes: PERRL Musculoskeletal: Flexion and extension of lumbar spine somewhat guarded secondary to pain, deep tendon reflexes normal, strength in upper and lower extremities [5/5], [abnormal gait noted] Neurological: speech clear, preschool paraprofessional equal, no gross sensory deficits Assessment:: Spinal stenosis with neurogenic claudication. And degenerative disc disease lumbar spine Plan:: We will schedule his third lumbar epidural steroid injection at L4-L5. We will also do an epidural gram at that time. Patient is continuing a home stretching program he is not on any anticoagulation therapy. We will also determine if he has a mild candidate. I will follow-up with the patient after his injection reassess his symptoms at that time. Dr. Healy has reviewed this note and agrees with this plan of care. This note was dictated using voice recognition software and may contain errors or omissions
== END ==
PROVIDERS: PCP Family Medicine; Visit Provider Clinical Nurse Specialist Family Health
DX: M48.062 Spinal stenosis, lumbar region with neurogenic claudication (principal)
CPT/HCPCS: 99212

== ENCOUNTER → 2018-09-26 14:30 | Outpatient (POV) | payer MEDICARE, SELFPAY ==
[2018-09-26 14:33] VITALS: BP 141/75; PULSE 83; RESP 18; O2SAT 98; BMI 31.5
--- NOTE | 2018-09-26 14:58 | P.CONS_ITS ---
[facility] Pain Management SOAP Note Subjective:: Patient is a pleasant 82-year-old white male who presents today for follow-up after lumbar epidural steroid injection of L4 and L5. Patient denies any pain at this time rating it a 0 out of 10. He had 100% relief with his injection. He does however, report that he is continuing to have extreme pressure to his bilateral lower extremities and lower back. He also reports extreme weakness to bilateral lower extremities, with concerns that he may fall at any time . the patient thought that he was scheduled for his mild procedure today. He is continuing with NSAIDs, along with a home stretching program. Is not on any anticoagulation therapy. Review of Systems General: No recent weight changes, no fever, no sleep disturbances Respiratory: No cough, no shortness of air, no recurring pulmonary infections Cardiovascular/peripheral vascular: No chest pain, no palpitations, no edema, no shortness of breath Gastrointestinal: No new onset incontinence, normal bowel movements reported Genitourinary: No new onset incontinence Musculoskeletal: Back pain Psychiatric: Normal mood/affect Neurological: [Denies weakness in extremities], [denies balance issues] Objective:: Physical exam General: Alert and oriented x3, no acute distress, pleasant and cooperative, [on room air] Lungs: Respirations even and unlabored, symmetrical chest expansion Eyes: PERRL Musculoskeletal: Flexion and extension of lumbar spine somewhat guarded secondary to pain, deep tendon reflexes normal, strength in upper and lower extremities [5/5], [abnormal gait noted] Neurological: Speech clear, leather goods sales representative equal, no gross sensory deficit Assessment:: Degenerative disc disease of lumbar spine with lumbar radicular symptoms, spinal stenosis with neurogenic claudication Plan:: Patient is scheduled for a mild procedure. We will see him back after his procedure and reassess his symptoms at that time. Again, he is not on any anticoagulation therapy. And he is continuing a home stretching program along with NSAIDs. He is been instructed to call the office if he has any concerns prior to his next appointment. Dr. Healy has reviewed this note and agrees with this plan of care. This note was dictated using voice recognition software and make contain errors or omissions.
== END ==
PROVIDERS: PCP Family Medicine; Visit Provider Clinical Nurse Specialist Family Health
DX: M48.062 Spinal stenosis, lumbar region with neurogenic claudication (principal)
CPT/HCPCS: 99212

== ENCOUNTER → 2018-10-24 09:23 | Outpatient (POV) | payer MEDICARE, SELFPAY ==
[2018-10-24 09:40] VITALS: BP 181/86; PULSE 59; RESP 18; O2SAT 98; BMI 32.3
--- NOTE | 2018-10-24 13:12 | HMH.PAINSOAP ---
[facility] Pain Management SOAP Note Subjective:: Patient is a pleasant 82-year-old white male who presents today for follow-up. He rates his pain a 5 out of 10. Patient has had good relief with epidural injections in the past however his pain complaint is different at this time. He is having extreme pressure in his bilateral lower extremities and lower back. And extreme weakness in the bilateral lower extremities, with concerns he may fall at any time . This is only when he is standing or walking for any length of time. It is relieved with sitting and leaning forward. Patient has been not denied by his insurance for a ME LD procedure. I tried to call his insurance to do a peer to peer which I was then told that that was not even an option. ROS General: no recent weight change, no fever, no sleep disturbances Respiratory: no cough, no shortness of air, no recurring pulmonary infections Cardiovascular/Peripheral Vascular: No chest pain, No palpitations, no edema, no shortness of breath. Gastrointestinal: no incontinence, normal bowel movements reported Genitourinary: no incontinence Musculoskeletal: Back pain, leg pain Psychiatric: normal mood/ affect Neurological: Weakness in bilateral lower extremities at times, [denies balance issues] Objective:: Physical Exam General: Alert and oriented x3, no acute distress, pleasant and cooperative, [on room air] Lungs: Resps E/U, Symmetrical chest expansion, Eyes: PERRL Musculoskeletal: Flexion and extension of lumbar spine somewhat guarded secondary to pain, deep tendon reflexes normal, strength in upper and lower extremities [5/5], [abnormal gait noted] Neurological: speech clear, server security administrator equal, no gross sensory deficits Assessment:: 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 We will contact with the patient in the morning to see where we are in regards to this. Dr. Healy has reviewed this note and agrees with this plan of care. This note was dictated using voice recognition software and may contain errors or omissions
--- NOTE | 2018-10-24 13:18 | P.CONS_ITS ---
[facility] Pain Management SOAP Note Subjective:: Patient is a pleasant 82-year-old white male who presents today for follow-up. He rates his pain a 5 out of 10. Patient has had good relief with epidural injections in the past however his pain complaint is different at this time. He is having extreme pressure in his bilateral lower extremities and lower back. And extreme weakness in the bilateral lower extremities, with concerns he may fall at any time . This is only when he is standing or walking for any length of time. It is relieved with sitting and leaning forward. Patient has been not denied by his insurance for a ID LD procedure. I tried to call his insurance to do a peer to peer which I was then told that that was not even an option. ROS General: no recent weight change, no fever, no sleep disturbances Respiratory: no cough, no shortness of air, no recurring pulmonary infections Cardiovascular/Peripheral Vascular: No chest pain, No palpitations, no edema, no shortness of breath. Gastrointestinal: no incontinence, normal bowel movements reported Genitourinary: no incontinence Musculoskeletal: Back pain, leg pain Psychiatric: normal mood/ affect Neurological: Weakness in bilateral lower extremities at times, [denies balance issues] Objective:: Physical Exam General: Alert and oriented x3, no acute distress, pleasant and cooperative, [on room air] Lungs: Resps E/U, Symmetrical chest expansion, Eyes: PERRL Musculoskeletal: Flexion and extension of lumbar spine somewhat guarded secondary to pain, deep tendon reflexes normal, strength in upper and lower extremities [5/5], [abnormal gait noted] Neurological: speech clear, platform worker equal, no gross sensory deficits Assessment:: 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 We will contact with the patient in the morning to see where we are in regards to this. Dr. Healy has reviewed this note and agrees with this plan of care. This note was dictated using voice recognition software and may contain errors or omissions
== END ==
PROVIDERS: PCP Family Medicine; Visit Provider Clinical Nurse Specialist Family Health
DX: M51.16 Intervertebral disc disorders with radiculopathy, lumbar region (principal); M48.062 Spinal stenosis, lumbar region with neurogenic claudication
CPT/HCPCS: 99212

== ENCOUNTER → 2018-11-21 10:38 | Outpatient (POV) | payer MEDICARE, SELFPAY ==
[2018-11-21 11:09] VITALS: BP 145/72; PULSE 89; RESP 18; O2SAT 98; BMI 31.5
--- NOTE | 2018-11-21 11:21 | P.CONS_ITS ---
[facility] Pain Management SOAP Note Subjective:: Patient is a pleasant 82-year-old white male who presents today for follow-up after mild procedure. Patient is doing well he states he has no pain. He is able to stand and walk for longer periods of time I discussed with him that he will continue to see improvement he understands this. We will see the patient back in 6 weeks reassess his symptoms at that time. ROS General: no recent weight change, no fever, no sleep disturbances Respiratory: no cough, no shortness of air, no recurring pulmonary infections Cardiovascular/Peripheral Vascular: No chest pain, No palpitations, no edema, no shortness of breath. Gastrointestinal: no incontinence, normal bowel movements reported Genitourinary: no incontinence Musculoskeletal: Back pain, leg pain Psychiatric: normal mood/ affect Neurological: [denies weakness in extremities], [denies balance issues] Objective:: Physical Exam General: Alert and oriented x3, no acute distress, pleasant and cooperative, [on room air] Lungs: Resps E/U, Symmetrical chest expansion, Eyes: PERRL Musculoskeletal: Flexion and extension of lumbar spine somewhat guarded secondary to pain, deep tendon reflexes normal, strength in upper and lower extremities [5/5], [abnormal gait noted] Neurological: speech clear, lab animal technologist equal, no gross sensory deficits Assessment:: Spinal stenosis with neurogenic claudication degenerative disc disease lumbar spine Plan:: Follow-up with the patient in 6 weeks reassess his symptoms at that time is been instructed to call the office if he has any issues prior to his next appointment. Dr. Healy has reviewed this note and agrees with this plan of care. This note was dictated using voice recognition software and may contain errors or omissions Pain Management Hx Components *Have you ever received a pneumonia vaccine?: Yes *Have you received a flu vaccine this season?: Yes - *Social History *Occupational Status:: other *Travel in the last 8 weeks: None
== END ==
PROVIDERS: PCP Family Medicine; Visit Provider Clinical Nurse Specialist Family Health
DX: M48.062 Spinal stenosis, lumbar region with neurogenic claudication (principal)
CPT/HCPCS: 99212

== ENCOUNTER → 2019-01-02 10:33 | Outpatient (POV) | payer MEDICARE, SELFPAY ==
[2019-01-02 10:39] VITALS: BP 139/70; PULSE 76; RESP 16; O2SAT 99; BMI 33.0
--- NOTE | 2019-01-02 10:53 | HMH.PAINSOAP ---
[facility] Pain Management SOAP Note Subjective:: Patient is a pleasant 83-year-old white male who presents today for follow-up. Patient had a mild procedure about 2 months ago. Patient is doing better however his improvement is slightly stented. Patient still has a little bit of difficulty standing and walking. Patient and I discussed 3 options which included surgical consultation, vertical flex procedure, epidural injections. Patient and I discussed and I do believe a epidural injection will be the most beneficial for him at this time. He has had these in the past and done well with them. Patient's not on any anticoagulation therapy. He is continuing a home stretching program. ROS General: no recent weight change, no fever, no sleep disturbances Respiratory: no cough, no shortness of air, no recurring pulmonary infections Cardiovascular/Peripheral Vascular: No chest pain, No palpitations, no edema, no shortness of breath. Gastrointestinal: no incontinence, normal bowel movements reported Genitourinary: no incontinence Musculoskeletal: Back pain, leg pain when standing Psychiatric: normal mood/ affect Neurological: [denies weakness in extremities], [denies balance issues] Objective:: Physical Exam General: Alert and oriented x3, no acute distress, pleasant and cooperative, [on room air] Lungs: Resps E/U, Symmetrical chest expansion, Eyes: PERRL Musculoskeletal: Flexion and extension of lumbar spine somewhat guarded secondary to pain, deep tendon reflexes normal, strength in upper and lower extremities [5/5], antalgic gait noted Neurological: speech clear, nail setter equal, no gross sensory deficits Assessment:: Degenerative disc disease lumbar spine with lumbar spinal stenosis with neurogenic claudication Plan:: We will schedule patient for an L4-L5 lumbar epidural steroid injection. Patient is done well with these in the past I do believe it would be beneficial. I will follow-up with the patient after this reassess his symptoms that time we did briefly discussed the vertical flex however I do believe epidurals would be beneficial prior. Dr. Healy has reviewed this note and agrees with this plan of care. This note was dictated using voice recognition software and may contain errors or omissions [facility] History I have reviewed the patient's past medical history: Yes Medical History: Reports:: Hypertension, Transient Ischemic Attacks (TIA) Denies:: Cancer, Diabetes Mellitus Type 1, Diabetes Mellitus Type 2, Internal Pacemaker, MRSA, Seizures *Have you ever received a pneumonia vaccine?: Yes *Have you received a flu vaccine this season?: Yes Other Medical History: Denies: Blood Transfusion Reaction Other Surgeries: Yes: No Previous Surgery, Cholecystectomy. No: Pacemaker Amputation: No Fractures: No - *Social History Smoking Status: Never smoker Tobacco Type: cigarettes Alcohol Intake: never *Occupational Status:: retired Housing: house Household Members: spouse *Travel in the last 8 weeks: None Family Hx:: No significant family history
--- NOTE | 2019-01-02 10:56 | P.CONS_ITS ---
[facility] Pain Management SOAP Note Subjective:: Patient is a pleasant 83-year-old white male who presents today for follow-up. Patient had a mild procedure about 2 months ago. Patient is doing better however his improvement is slightly stented. Patient still has a little bit of difficulty standing and walking. Patient and I discussed 3 options which included surgical consultation, vertical flex procedure, epidural injections. Patient and I discussed and I do believe a epidural injection will be the most beneficial for him at this time. He has had these in the past and done well with them. Patient's not on any anticoagulation therapy. He is continuing a home stretching program. ROS General: no recent weight change, no fever, no sleep disturbances Respiratory: no cough, no shortness of air, no recurring pulmonary infections Cardiovascular/Peripheral Vascular: No chest pain, No palpitations, no edema, no shortness of breath. Gastrointestinal: no incontinence, normal bowel movements reported Genitourinary: no incontinence Musculoskeletal: Back pain, leg pain when standing Psychiatric: normal mood/ affect Neurological: [denies weakness in extremities], [denies balance issues] Objective:: Physical Exam General: Alert and oriented x3, no acute distress, pleasant and cooperative, [on room air] Lungs: Resps E/U, Symmetrical chest expansion, Eyes: PERRL Musculoskeletal: Flexion and extension of lumbar spine somewhat guarded secondary to pain, deep tendon reflexes normal, strength in upper and lower extremities [5/5], antalgic gait noted Neurological: speech clear, planisher equal, no gross sensory deficits Assessment:: Degenerative disc disease lumbar spine with lumbar spinal stenosis with neurogenic claudication Plan:: We will schedule patient for an L4-L5 lumbar epidural steroid injection. Patient is done well with these in the past I do believe it would be beneficial. I will follow-up with the patient after this reassess his symptoms that time we did briefly discussed the vertical flex however I do believe epidurals would be beneficial prior. Dr. Healy has reviewed this note and agrees with this plan of care. This note was dictated using voice recognition software and may contain errors or omissions [facility] History I have reviewed the patient's past medical history: Yes Medical History: Reports:: Hypertension, Transient Ischemic Attacks (TIA) Denies:: Cancer, Diabetes Mellitus Type 1, Diabetes Mellitus Type 2, Internal Pacemaker, MRSA, Seizures *Have you ever received a pneumonia vaccine?: Yes *Have you received a flu vaccine this season?: Yes Other Medical History: Denies: Blood Transfusion Reaction Other Surgeries: Yes: No Previous Surgery, Cholecystectomy. No: Pacemaker Amputation: No Fractures: No - *Social History Smoking Status: Never smoker Tobacco Type: cigarettes Alcohol Intake: never *Occupational Status:: retired Housing: house Household Members: spouse *Travel in the last 8 weeks: None Family Hx:: No significant family history
== END ==
PROVIDERS: PCP Family Medicine; Visit Provider Clinical Nurse Specialist Family Health
DX: M48.062 Spinal stenosis, lumbar region with neurogenic claudication (principal)
CPT/HCPCS: 99212

== ENCOUNTER → 2019-03-06 14:39 | Outpatient (POV) | payer MEDICARE, SELFPAY ==
--- NOTE | 2019-03-07 08:39 | P.CONS_ITS ---
[facility] Pain Management SOAP Note Subjective:: Patient is a pleasant 83-year-old white male who presents today for follow-up after lumbar epidural steroid injection overall doing well rates no pain while sitting. He does have some weakness in his legs. He is continuing physical therapy. ROS General: no recent weight change, no fever, no sleep disturbances Respiratory: no cough, no shortness of air, no recurring pulmonary infections Cardiovascular/Peripheral Vascular: No chest pain, No palpitations, no edema, no shortness of breath. Gastrointestinal: no new onset incontinence, normal bowel movements reported Genitourinary: no new onset incontinence Musculoskeletal: Back pain, leg pain at times Psychiatric: normal mood/ affect, [denies depression], [denies anxiety] Neurological: [denies new onset weakness in extremities], [denies new onset balance issues] Objective:: Physical Exam General: Alert and oriented x3, no acute distress, pleasant and cooperative, [on room air] Lungs: Resps E/U, Symmetrical chest expansion, Eyes: PERRL Musculoskeletal: Flexion and extension of lumbar spine somewhat guarded secondary to pain, deep tendon reflexes normal, strength in upper and lower extremities [5/5], antalgic gait noted Neurological: speech clear, tug hand equal, no gross sensory deficits Assessment:: Degenerative disc disease lumbar spine, lumbar spinal stenosis with neurogenic claudication Plan:: Patient will continue physical therapy I will follow-up with him after this and reassess his symptoms at that time is been instructed to call the office if he has any issues prior to his next appointment. Dr. Healy has reviewed this note and agrees with this plan of care. This note was dictated using voice recognition software and may contain errors or omissions [facility] History I have reviewed the patient's past medical history: Yes Medical History: Reports:: Hypertension, Transient Ischemic Attacks (TIA) Denies:: Cancer, Diabetes Mellitus Type 1, Diabetes Mellitus Type 2, Internal Pacemaker, MRSA, Seizures *Have you ever received a pneumonia vaccine?: (n/a) *Have you received a flu vaccine this season?: (n/a) Other Medical History: Denies: Blood Transfusion Reaction Other Surgeries: Yes: No Previous Surgery, Cholecystectomy. No: Pacemaker Amputation: No Fractures: No - *Social History Smoking Status: Never smoker Tobacco Type: cigarettes Alcohol Intake: never *Occupational Status:: retired Housing: house Household Members: spouse *Travel in the last 8 weeks: None Family Hx:: No significant family history
== END ==
PROVIDERS: PCP Family Medicine; Visit Provider Clinical Nurse Specialist Family Health
DX: M48.062 Spinal stenosis, lumbar region with neurogenic claudication (principal)
CPT/HCPCS: 99212

== ENCOUNTER 2023-05-03 08:04 | Outpatient (CLI) | payer MEDICARE, SELFPAY ==
--- NOTE | 2023-05-03 08:15 | MR_ITS ---
FINAL REPORT CLINICAL HISTORY: SCIATICA RIGHT SIDE, DDD COMPARISON: 05/26/2018 FINDINGS: Multiplanar MR imaging of the lumbar spine was performed without contrast. On the sagittal T2-weighted images, disc degeneration is seen throughout. There are endplate changes at several levels. There is mild retrolisthesis of L3 on L4 and mild anterolisthesis of L4 on L5. 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 There is no evidence of fracture. No bony mass is identified. The conus is seen at approximately the L1 level and has an unremarkable appearance. L1-2: Annular disc bulge with facet arthropathy and mild right neuroforaminal narrowing. L2-3: Annular disc bulge with facet arthropathy and osteophytes. There is moderate bilateral neuroforaminal narrowing. L3-4: Annular disc bulge with facet arthropathy and osteophytes. There is severe bilateral neuroforaminal narrowing. There is moderate central canal stenosis with AP diameter thecal sac measuring 5 mm. L4-5: Annular bulge with facet arthropathy and osteophytes. Central disc protrusion with bilateral lateral recess stenosis. There is severe central canal stenosis with AP diameter of the thecal sac measuring 4 mm. There is severe bilateral neuroforaminal narrowing. L5-S1: Annular disc bulge with facet arthropathy and osteophytes. There is a central disc protrusion. There is moderate right and severe left neuroforaminal narrowing. IMPRESSION: Degenerative changes, canal stenosis and neuroforaminal narrowing, progressed from prior exam. Reviewed, Interpreted and Dictated by Rao Chacon III, MD Transcribed by Ramonita Dillard Authenticated and [facility]
== END 2023-05-03 23:59 ==
LOC: RAD 08:05
PROVIDERS: PCP Family Medicine; Visit Provider Family Medicine
DX: M54.41 Lumbago with sciatica, right side (principal); M51.9 Unspecified thoracic, thoracolumbar and lumbosacral intervertebral disc disorder; M47.816 Spondylosis without myelopathy or radiculopathy, lumbar region; M48.061 Spinal stenosis, lumbar region without neurogenic claudication; R29.898 Other symptoms and signs involving the musculoskeletal system
CPT/HCPCS: 72148; 76376

== ENCOUNTER 2023-06-23 14:39 | Outpatient (POV) | payer MEDICARE, SELFPAY ==
--- NOTE | 2023-06-23 15:25 | EXP.PAIN.OV ---
HPI Data of Consult Patient: new to practice Consult date: 06/23/23 Requesting Physician: Holly Paula APRN Primary Care Provider: Clayton Avalos MD Consult Narrative Reason for consult: Low back pain, bilateral leg pain/weakness History of present illness: Mr. Cross is a 87 year old male who presents today as a new patient. He is a referral from Arcelia Augustin's office. Today he rates his pain a 7 out of 10. Patient states his pain is all throughout his low back with radiating symptoms into his lower extremities. Patient states this has been going on for years and progressively worsened over time. Patient states that he is experiencing significant weakness in his legs and that they will occasionally give out causing him to fall. He does describe his pain as an overall constant hurting sensation with weakness into his legs. He does state that here lately the left leg is worse than the right. He states that is difficult to explain. Patient does state the pain interferes with his ability to perform activities of daily living such as cooking or cleaning. Patient does state that he is retired however he does try to stay active and that the pain is preventing him from being able to move around easier and do things. Patient has tried [id number] Tylenol and ibuprofen along with heat and ice and topicals with minimal relief. Patient has been to a pain management facility in the past years ago and states that he had injections however he did not notice significant relief however he is interested in trying these again. Patient states that he has had physical therapy that helped a little but not much. Patient has had recent chiropractor therapy with traction however it made no additional improvement. Patient has continued to try and do at home exercising and stretching to stay active however it is minimal that he can do due to his worsening symptoms. Patient is currently managed with meloxicam. He is interested in any help we may be able to provide. His Marlon has been reviewed and is appropriate. CC: Holly Paula APRN [facility] Disclaimer: The information contained in this section may have been updated after the patient was seen, as this information can be updated by other users. Social History Smoking Status: Never smoker second hand exposure: No alcohol intake: never current occupational status: retired Travel in the last 8 weeks: None household members: spouse housing: house current occupation: [employer] current occupational exposures/hazards: No caffeine: Yes Review of Systems Review of Systems Review of systems:: pertinent systems reviewed and negative unless documented below Review of systems (narrative): Review of Systems: General: No recent weight changes, no fever, no sleep disturbances Respiratory: No cough, no shortness of air, no recurring pulmonary infections Cardiovascular/peripheral vascular: No chest pain, no palpitations, no edema, no shortness of breath Gastrointestinal: No new onset incontinence, normal bowel movements reported Genitourinary: No new onset incontinence Musculoskeletal: Low back pain, bilateral leg pain/weakness Psychiatric: [Normal mood/affect] Neurological: [Denies weakness in extremities], [denies balance issues] Meds Home Medications and Allergies Home Medications Medication Instructions Recorded Confirmed Type losartan 50 mg tablet 50 mg PO DAILY blood pressure 10/24/18 01/02/19 History New Prescriptions to Start Prescriptions: Allergies Allergy/AdvReac Type Severity Reaction Status Date / Time No Known Allergies Allergy Verified 02/10/19 12:06 Objective Narrative: Physical Exam: General: Alert and oriented x3, no acute distress, pleasant and cooperative Lungs: Respirations even and unlabored, symmetrical chest expansion Eyes: PERRL Musculoskeletal: Flexion and extension of [] [spine] somewhat guarded secondary to pain, [antalgic gait noted] Neurological: Speech clear, no gross sensory deficit Additional findings Additional findings: FINAL REPORT CLINICAL HISTORY: SCIATICA RIGHT SIDE, DDD COMPARISON: 05/26/2018 FINDINGS: Multiplanar MR imaging of the lumbar spine was performed without contrast. On the sagittal T2-weighted images, disc degeneration is seen throughout. There are endplate changes at several levels. There is mild retrolisthesis of L3 on L4 and mild anterolisthesis of L4 on L5. 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 There is no evidence of fracture. No bony mass is identified. The conus is seen at approximately the L1 level and has an unremarkable appearance. L1-2: Annular disc bulge with facet arthropathy and mild right neuroforaminal narrowing. L2-3: Annular disc bulge with facet arthropathy and osteophytes. There is moderate bilateral neuroforaminal narrowing. L3-4: Annular disc bulge with facet arthropathy and osteophytes. There is severe bilateral neuroforaminal narrowing. There is moderate central canal stenosis with AP diameter thecal sac measuring 5 mm. L4-5: Annular bulge with facet arthropathy and osteophytes. Central disc protrusion with bilateral lateral recess stenosis. There is severe central canal stenosis with AP diameter of the thecal sac measuring 4 mm. There is severe bilateral neuroforaminal narrowing. L5-S1: Annular disc bulge with facet arthropathy and osteophytes. There is a central disc protrusion. There is moderate right and severe left neuroforaminal narrowing. IMPRESSION: Degenerative changes, canal stenosis and neuroforaminal narrowing, progressed from prior exam. Reviewed, Interpreted and Dictated by Rao Chacon III, MD Transcribed by Ramonita Dillard Authenticated and [facility] Assessment and Plan *Assessment and plan (1) Degenerative disc disease, lumbar: Status: Acute Category: Medical Code(s): M51.36 - Other intervertebral disc degeneration, lumbar region (2) Lumbar spinal stenosis: Status: Acute Qualifiers: Neurogenic claudication status: with neurogenic claudication Qualified Code(s): M48.062 - Spinal stenosis, lumbar region with neurogenic claudication Category: Medical Code(s): M48.061 - Spinal stenosis, lumbar region without neurogenic claudication (3) Lumbar radiculopathy: Status: Chronic Category: Medical Code(s): M54.16 - Radiculopathy, lumbar region (4) Chronic pain syndrome: Status: Acute Category: Medical Code(s): G89.4 - Chronic pain syndrome Plan Patient is experiencing significant pain throughout his low back and into his bilateral lower extremities. Patient did have limited range of motion of his lumbar spine and symptoms consistent with spinal stenosis and neurogenic claudication symptoms. Patient has had recent MRI imaging that did show severe central canal stenosis and severe bilateral neuroforaminal narrowing at the L4-L5 level. I have discussed with the patient that I do believe he would benefit from a lumbar epidural steroid injection at this level. Risk and benefits were discussed with the patient and he would like to proceed forward with this plan of care. Patient has tried and failed conservative therapy including oral medications, heat and ice, topicals, physical therapy, recent chiropractor therapy and at home stretching and exercise. Patient is unable to tolerate current physical therapy due to his weakness in his legs. We will schedule the patient for an LESI L4-L5 under fluoroscopy. Patient has been instructed to contact the clinic with any concerns before the next appointment. Dr. Healy has reviewed this note and agrees with this plan of care. This note was dictated using voice recognition software and make contain errors or omissions.
[2023-06-23 15:37] VITALS: BP 203/89; PULSE 56; RESP 20; O2SAT 98; BMI 31.5
== END 2023-06-23 23:59 ==
LOC: SC.PAIN 14:41
PROVIDERS: PCP Family Medicine; Visit Provider Nurse Practitioner Family
DX: M48.062 Spinal stenosis, lumbar region with neurogenic claudication; G89.4 Chronic pain syndrome; M51.16 Intervertebral disc disorders with radiculopathy, lumbar region
CPT/HCPCS: 99202; G0463

== ENCOUNTER 2023-07-27 08:41 | Day surgery (SDC) | payer MEDICARE, SELFPAY ==
[2023-07-27 09:13] VITALS: BP 185/89; PULSE 58; RESP 18; TEMP 36.3; O2SAT 97; BMI 31.5
[2023-07-27] MEDS: methylPREDNISolone ACETATE 80MG/ML VIAL 80 MG (09:30)
[2023-07-27 09:39] VITALS: BP 211/83; PULSE 55; RESP 16; O2SAT 97
--- NOTE | 2023-07-27 10:19 | EXP.PAIN.PRO ---
Procedure Date: 07/27/23 Time: 09:30 Anesthesiologist:: Moses Dugan CRNA Complications:: None Pre-procedure Diagnosis:: Degenerative disc lumbar spine multilevels. Lumbar radiculopathy. Lumbar facet arthropathy. Lumbar spondylosis. Post-procedure Diagnosis:: Same. Indications for Procedure:: Patient is a very pleasant 87-year-old male that comes our clinic today for lumbar epidural steroid injection L4-5 level. Patient reports low back pain as well as bilateral hip and leg radicular symptoms. He rates his pain 6/10. Procedure Details:: Procedure: Lumbar epidural steroid injection under fluoroscopy Informed consent was obtained and the risks and benefits of the procedure were explained to the patient. The patient was taken to the procedure room and noninvasive monitors placed, including noninvasive blood pressure cuff and pulse oximeter. The back was viewed using C-arm Fluoroscopy and prepped using Chloraprep as a cleansing solution and the L4-L5 interspace was palpated. Skin and subcutaneous tissues were anesthetized using lidocaine 1.5% and a 25-gauge needle. After this, an 18-gauge Touhy epidural needle was placed into the L4-L5 interspace and advanced using fluoroscopic guidance and loss of resistance to air until the epidural space was encountered. After confirmation of needle placement in the epidural space, with dye, a solution containing normal saline, 3 mL and Depo-Medrol 80 mg were incrementally injected into the lumbar epidural space. The patient tolerated the procedure well with no complications. The patient was observed in the Pain Clinic and then discharged home neurologically intact. Plan and Disposition:: Patient was discharged without incident.
== END 2023-07-27 09:40 | disposition home or self-care (01) ==
LOC: SC.PAINP 08:42
PROVIDERS: PCP Family Medicine; Visit Provider Nurse Anesthetist, Certified Registered
DX: M51.16 Intervertebral disc disorders with radiculopathy, lumbar region (principal); M47.26 Other spondylosis with radiculopathy, lumbar region
CPT/HCPCS: 62323; J1010

== ENCOUNTER 2023-08-11 10:15 | Outpatient (POV) | payer MEDICARE, SELFPAY ==
[2023-08-11 10:36] VITALS: BP 148/80; PULSE 72; RESP 18; O2SAT 97; BMI 31.5
--- NOTE | 2023-08-11 11:00 | EXP.PAIN.SOA ---
[facility] Pain Management SOAP Note Subjective:: Patient is a pleasant 87-year-old male who presents today for follow-up of lumbar epidural steroid injection L4-L5 on 07/27/2023. Today he rates his pain a 0 out of 10 more so on the left side. He states his pain along the right low back and right leg is a 7 out of 10. Patient states that he did have at least 50% improvement following this injection and that the left side is doing much better however he does still state that he has a lot of weakness in the right leg and feels like the extremity will be colder compared to the left. Patient does state the pain interferes with his ability to perform activities of daily living such as cooking and cleaning. He has had recent physical therapy with traction that did help initially however over time became less effective. He does also state that he has recently been to the chiropractor and that they did not do much due to the recent updated MRI and steroid injection we provided. Patient has continued at home exercising and stretching between injections with minimal relief. His Marlon has been reviewed and is appropriate. Review of Systems: General: No recent weight changes, no fever, no sleep disturbances Respiratory: No cough, no shortness of air, no recurring pulmonary infections Cardiovascular/peripheral vascular: No chest pain, no palpitations, no edema, no shortness of breath Gastrointestinal: No new onset incontinence, normal bowel movements reported Genitourinary: No new onset incontinence Musculoskeletal: Low back pain, right leg pain and weakness Psychiatric: [Normal mood/affect] Neurological: [Denies weakness in extremities], [denies balance issues] Objective:: Physical Exam: General: Alert and oriented x3, no acute distress, pleasant and cooperative Lungs: Respirations even and unlabored, symmetrical chest expansion Eyes: PERRL Musculoskeletal: Flexion and extension of lumbar [spine] somewhat guarded secondary to pain, [antalgic gait noted] positive right leg raise with decreased sensation to light touch and decreased reflexes Neurological: Speech clear, no gross sensory deficit Assessment:: Degenerative disc disease of lumbar spine with lumbar radiculopathy symptoms, right leg pain and weakness, lumbar stenosis Plan:: Patient is experiencing worsening pain down his low back and radiating with numbness and tingling into his right leg. Patient did have limited range of motion of his lumbar spine with a positive right leg raise and decreased sensation to light touch and decreased reflexes. I have discussed with the patient that he may benefit from a right transforaminal epidural steroid injection. Risk and benefits were discussed with the patient and he would like to proceed forward with this plan of care. Patient has tried and failed conservative therapies including recent physical therapy and chiropractor therapy. Patient has continued at home exercising between injections. We will schedule the patient for a right transforaminal epidural steroid injection L3-L4 and L4-L5 under fluoroscopy. Patient has been instructed to contact the clinic with any concerns before the next appointment. Dr. Healy has reviewed this note and agrees with this plan of care. This note was dictated using voice recognition software and make contain errors or omissions. [facility] Disclaimer: The information contained in this section may have been updated after the patient was seen, as this information can be updated by other users. Medical History Chronic pain HTN (hypertension) Surgical History Surgical history unknown Family History Other Unknown family medical history Social History Smoking Status: Never smoker second hand exposure: No alcohol intake: never current occupational status: other Travel in the last 8 weeks: None household members: spouse housing: house current occupation: [employer]ATOR current occupational exposures/hazards: No caffeine: Yes
== END 2023-08-11 23:59 | disposition home or self-care (01) ==
LOC: SC.PAIN 10:15
PROVIDERS: PCP Family Medicine; Visit Provider Nurse Practitioner Family
DX: M51.16 Intervertebral disc disorders with radiculopathy, lumbar region (principal); M79.604 Pain in right leg; M48.061 Spinal stenosis, lumbar region without neurogenic claudication
CPT/HCPCS: 99212; G0463

== ENCOUNTER 2023-08-31 08:39 | Day surgery (SDC) | payer MEDICARE, SELFPAY ==
[2023-08-31 08:59] VITALS: BP 145/71; PULSE 58; RESP 18; TEMP 36.8; O2SAT 97; BMI 31.5
[2023-08-31 09:11] VITALS: BP 166/70; PULSE 54; RESP 18; O2SAT 98
[2023-08-31 09:12] VITALS: BP 148/64; PULSE 55; RESP 18; O2SAT 96
[2023-08-31] MEDS: LIDOCAINE 1% 5ML PF VIAL 5 ML (09:12)
[2023-08-31 09:14] VITALS: BP 148/64; PULSE 55; RESP 18; O2SAT 96
--- NOTE | 2023-08-31 09:17 | EXP.PAIN.PRO ---
Procedure Date: 08/31/23 Time: 09:00 Anesthesiologist:: Moses Dugan CRNA Complications:: None Pre-procedure Diagnosis:: Degenerative disc lumbar spine multilevels. Lumbar radiculopathy. Lumbar spondylosis. Multilevel lumbar facet arthropathy. Post-procedure Diagnosis:: Same. Indications for Procedure:: Patient is a very pleasant 87-year-old male comes our clinic today for a right L3-4, L4-5 transforaminal epidural steroid injection. Patient had significant relief on the left side but the same injection previously. He reports low lumbar right-sided back pain as well as right hip and leg radicular symptoms to the foot. He rates his pain 7/10. Procedure Details:: Details of the procedure were explained to the patient. The patient was taken the procedure room placed in the prone position. The area of the lumbar spine was cleansed using chlorhexidine as a cleansing solution. At this time using fluoroscopy guidance markers were placed on the right lateral border of the L3 and L4 vertebral body. The skin and subcutaneous tissue was anesthetized using 1% lidocaine and 25-gauge needle. At this time using a 22-gauge 3-1/2 inch spinal needle the right upper one third of the L3-4 foramen was accessed. The same was done at the right L4-5 foramen. Needle positions were confirmed and a lateral view using fluoroscopy and contrast dye. At this time 1 cc of 1% lidocaine +20 mg of Depo-Medrol was injected at each level after negative aspiration. Bacliff were removed. Band-Aid applied. Patient tolerated the procedure without difficulty. There are no complications. Plan and Disposition:: Patient was discharged without incident.
[2023-08-31] MEDS: IOPAMIDOL-200 (41%);10ML VIAL 10 ML IV (09:20)
== END 2023-08-31 09:11 | disposition home or self-care (01) ==
PROVIDERS: PCP Family Medicine; Visit Provider Nurse Anesthetist, Certified Registered
DX: M51.16 Intervertebral disc disorders with radiculopathy, lumbar region (principal); M47.26 Other spondylosis with radiculopathy, lumbar region
CPT/HCPCS: 64483; 64484; J1010; Q9966

== ENCOUNTER 2023-09-09 12:01 | Outpatient (CLI) | payer MEDICARE, SELFPAY ==
[2023-09-09] MEDS: 0.9 % SODIUM CHLORIDE 1000ML 2,000 ML 999 ML IV (12:19)
[2023-09-09] MEDS: ONDANSETRON 4MG/2ML VIAL 4 MG (12:19)
[2023-09-09 12:20] LABS: Basophils # 0.1 K/mm3 (0-0.2); Basophils % 0.2 % (0.1-2.0); Eosinophils # 0.1 K/mm3 (0.0-0.4); Eosinophils % 0.3 % (0.1-12.0); Hematocrit 46.3 % (42.0-52.0); Hemoglobin 15.4 g/dL (14.1-18.0); Lymphocytes # 2.2 K/mm3 (0.7-4.5); Lymphocytes % 10.1 % (10-50); Mean Corpuscular HGB Conc 33.3 g/dL (31.8-35.4); Mean Corpuscular Hemoglobin 32.3 pg (27.0-31.2); Mean Corpuscular Volume 97.1 fl (80-94); Mean Platelet Volume 9.1 fl (7.4-10.4); Monocytes # 1.3 K/mm3 (0.1-1.0); Monocytes % 5.9 % (1.7-9.3); Neutrophils # 17.8 K/mm3 (1.8-7.8); Neutrophils % 83.4 % (37.0-80.0); Platelet Count 247 K/mm3 (142-424); Red Blood Count 4.77 M/mm3 (4.60-6.20); Red Cell Distribution Width 13.6 % (11.5-17.5); White Blood Count 21.3 K/mm3 (4.8-10.8)
[2023-09-09 12:22] LABS: MANUAL DIFFERENTIAL MANUAL DIFFERENTIAL (MANUAL DIFF)
[2023-09-09 12:28] VITALS: BP 87/48; PULSE 79; RESP 18; TEMP 36.1; O2SAT 95
[2023-09-09 12:41] LABS: Alanine Aminotransferase 59 U/L (12-78); Albumin Level 3.3 g/dl (3.5-5.0); Albumin/Globulin Ratio 1.1 (1.1-1.8); Alkaline Phosphatase 67 U/L (38-126); Anion Gap 14.1 mEq/L (5-15); Aspartate Amino Transferase 190 U/L (17-59); Bilirubin,Total 1.6 mg/dl (0.2-1.3); Blood Urea Nitrogen 51 mg/dl (9-20); Calcium 8.1 mg/dl (8.4-10.2); Carbon Dioxide 23 mmol/L (22.0-30.0); Chloride 94 mmol/L (98-107); Estimated Glomerular Filt Rate 29 ml/min (>60); GFR (African American) 35 ML/MIN (>60); Glucose 101 mg/dl (74-100); Potassium 4.1 mmoL/L (3.5-5.1); Sodium 127 mmol/L (136-145); Total Protein,Serum 6.3 g/dl (6.3-8.2)
[2023-09-09 13:00] VITALS: BP 88/57; PULSE 81; RESP 18
[2023-09-09 13:33] VITALS: BP 80/59; PULSE 78; RESP 18
[2023-09-09] MEDS: CEFTRIAXONE 1 GM 1 GM in 0.9 % SODIUM CHLORIDE 50 ML IV (13:33)
--- NOTE | 2023-09-09 13:45 | PC.NURSE ---
1343-dr. nowak at pt bedside; discussed possible admit if pressure doesn't increase. rn to call md when 2nd liter finishes with update
[2023-09-09 14:00] VITALS: BP 82/59; PULSE 76; RESP 18
[2023-09-09 14:40] VITALS: BP 110/84; PULSE 86; RESP 18; TEMP 36.7; O2SAT 94
[2023-09-09] MEDS: 0.9 % SODIUM CHLORIDE 1000ML 1,000 ML 999 ML IV (14:40)
[2023-09-09 15:03] LABS: Lymphocytes % 16 % (10-50); Monocytes % 9 % (2-9); Neutrophils % 75 % (42-76); Total Cells Counted 100
[2023-09-09 15:04] LABS: Platelet Estimate Normal; RBC Morphology Normal
--- NOTE | 2023-09-09 15:06 | PC.NURSE ---
Report taken from Alexandra Goyal RN, assuming care of the pt at this time. Pt currently receiving ivf's, in stable condition.
[2023-09-09 15:45] VITALS: BP 112/88; PULSE 82; RESP 18; TEMP 36.6; O2SAT 99
== END 2023-09-09 15:53 | disposition home or self-care (01) ==
LOC: LAB 12:02 → INF 12:14
PROVIDERS: PCP Family Medicine; Visit Provider Family Medicine
DX: E86.0 Dehydration (principal); R11.10 Vomiting, unspecified; Z79.2 Long term (current) use of antibiotics
CPT/HCPCS: 96365; 36415; 80053; 85007; 85025; 85027; 96360; 96361; 96367; J0696; J2405

== ENCOUNTER 2023-09-27 12:27 | Outpatient (CLI) | payer MEDICARE, SELFPAY ==
--- NOTE | 2023-09-27 12:36 | XR_ITS ---
FINAL REPORT CLINICAL HISTORY: Nonspecific cough COMPARISON: None FINDINGS: Two views of the chest were obtained. The heart size and pulmonary vascularity are within normal limits. The mediastinum is normal. No acute pulmonary abnormality is identified. There is no pneumothorax. The bony thorax is intact. IMPRESSION: No active cardiopulmonary disease. Reviewed, Interpreted and Dictated by Rao Chacon III, MD Transcribed by Debra Mendez Authenticated and [facility]
== END 2023-09-27 23:59 | disposition home or self-care (01) ==
LOC: RAD 12:30
PROVIDERS: PCP Family Medicine; Visit Provider Family Medicine
DX: R05.8 Other specified cough (principal)
CPT/HCPCS: 71046

== ENCOUNTER 2023-11-11 09:24 | Outpatient (POV) | payer MEDICARE, SELFPAY ==
--- NOTE | 2023-11-11 09:50 | A.OFFVIS_ITS ---
[facility] Disclaimer: The information contained in this section may have been updated after the patient was seen, as this information can be updated by other users. 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 Today he rates his pain a 9 out of 10. Patient denies any new injury or trauma. He does state that he still has chronic pain back and right heel that does go down into his right leg. He does describe it as an aching sensation that does interfere with his ability perform activities of daily living. Patient states that he really does question whether or not if it is more related to his hip itself. Patient does have significant findings on his lumbar MRI and states that in the past when he went to physical therapy nothing seemed to help except traction. He states that he has even been to see a chiropractor who would not even work on him until he had a copy of his MRI and once he saw the MRI said that he would not be able to do much due to the findings. Patient has tried and failed conservative therapy including continued at home stretching exercise for longer than 6 weeks. His Marlon has been reviewed and is appropriate. Review of Systems: General: No recent weight changes, no fever, no sleep disturbances Respiratory: No cough, no shortness of air, no recurring pulmonary infections Cardiovascular/peripheral vascular: No chest pain, no palpitations, no edema, no shortness of breath Gastrointestinal: No new onset incontinence, normal bowel movements reported Genitourinary: No new onset incontinence Musculoskeletal: Right hip pain Psychiatric: [Normal mood/affect] Neurological: [Denies weakness in extremities], [denies balance issues] Pain at rest (0-10 scale): 9 Objective Objective:: Physical Exam: General: Alert and oriented x3, no acute distress, pleasant and cooperative Lungs: Respirations even and unlabored, symmetrical chest expansion Eyes: PERRL Musculoskeletal: Flexion and extension of right hip somewhat guarded secondary to pain, [antalgic gait noted] Neurological: Speech clear, no gross sensory deficit Has patient had previous pain injection?: No Conservative treatment options previously tried: Home exercise plan Length of treatment: Longer than 6 weeks Meds Home Medications and Allergies Home Medications ?Medication ?Instructions ?Recorded ?Confirmed ?Type losartan 50 mg tablet 50 mg PO DAILY blood pressure 10/24/18 07/27/23 History New Prescriptions to Start Prescriptions: Allergies Allergy/AdvReac Type Severity Reaction Status Date / Time No Known Allergies Allergy Verified 07/27/23 09:04 Assessment and Plan *Assessment and plan (1) Right hip pain: Status: Acute Category: Medical Code(s): M25.551 - Pain in right hip (2) Right leg pain: Status: Acute Category: Medical Code(s): M79.604 - Pain in right leg Plan Patient continues to experience significant pain in and around his right hip and right leg. Patient did have limited range of motion. I have discussed with the patient that it may be beneficial to order x-ray imaging of his right hip. Patient denies any prior surgery on this joint. I did discuss with patient that he may benefit from a right hip intra-articular injection. Risk and benefits were discussed with the patient and he would like to proceed forward with this plan of care. I did discuss with him that if he does not get beneficial relief then it would appear that it is still coming from his lumbar spine and we may look at repeating his prior lumbar epidural steroid injection L4-L5 that was back in June and provided 50% relief however did not seem to do as well in the right leg. We will follow-up with this at future visits. Patient has continued at home stretching exercise for longer than 6 weeks. Patient will be scheduled for a right hip intra-articular injection under fluoroscopy. Patient has been instructed to contact the clinic with any concerns before the next appointment. Dr. Healy has reviewed this note and agrees with this plan of care. This note was dictated using voice recognition software and make contain errors or omissions. All injections are used with Lidocaine or Bupivacaine and Depo Medrol.
[2023-11-11 10:07] VITALS: BP 137/75; PULSE 92; RESP 18; O2SAT 98; BMI 28.7
--- OUTSIDE RECORDS SUMMARY | 2023-11-12 04:10 | XMS_ITS ---
Author Organization [facility] Address [address] [place] [id number] Care Team Providers Care Stove Fitter Name Role Phone RobbieNabilClayton Primary Care Provider [phone] ALLERGIES Allergen (clinical drug ingredient) Drug/Non Drug Allergy documented on EMR Reaction Allergy Type Onset Date Status lisinopril Lisinopril Cough Drug Allergy Activ e RESULTS Component Value Reference Range Notes CBC Venipuncture (in house) Reviewed date:11/02/2023 11:24:57 AM Interpretation: Performing Lab: Notes/Report: wbc 7.5 3.5 - 10 lymph 22.0% 15 - 50 mid 5.7% 2 - 15 gran 72.3% 35 - 80 rbc 4.52 3.5 - 5.5 hgb 13.7 11.5 - 16.5 hct 40.9 35 - 55 mcv 90.6 75 - 100 mch 30.5 25 - 35 mchc 33.6 31 - 38 platlet 212 100 - 400 P-Amylase Reviewed date:11/02/2023 11:24:57 AM Interpretation: Performing Lab: Notes/Report: Test performed by [facility] [address] [place], [place] [address] [place] , [place] [address] Nas Jack MD, Rollout Manager CLIA: [id number] Amylase 74 28-100 U/L P-Vitamin B12 Reviewed date:11/02/2023 11:24:57 AM Interpretation: Performing Lab: Notes/Report: Test performed by [facility] [address] [place], [place] [address] [place] , [address], [place] [address] Nas Jack MD, Rollout Manager CLIA: [id number] Vitamin B12 566 124-6504 pg/mL P-Comprehensive Metabolic Pa kalie (CMP) Reviewed date:11/02/2023 11:24:57 AM Interpretation: Performing Lab: Notes/Report: Test performed by [facility] [address] [place] [address] , [address], [place] [address] Nas Jack MD, Rollout Manager CLIA: [id number] Sodium 139 135-145 mmol/L Potassium 4.0 3.5-5.3 mmol/L Chloride 106 97-108 mmol/L CO2 23 22-32 mmol/L Glucose 103 65-99 mg/dL BUN 9 8-23 mg/dL Creatinine 1.09 0.70-1.30 mg/dL Calcium 8.5 8.6-10.4 mg/dL eGFR by Creatinine 66 >59 mL/min/1.73m2 Protein 6.4 6.0-8.3 g/dL Albumin 3.9 3.5-5.3 g/dL Alkaline Phosphatase 102 40-129 IU/L ALT (SGPT) 10 <5-55 IU/L AST (SGOT) 21 <5-46 IU/L Bilirubin, Total 0.7 <0.2-1.2 mg/dL A/G Ratio 1.6 1.1-2.5 mg/dL Z-G-Ijpuunvt Protein (CRP) Reviewed date:11/02/2023 11:24:57 AM Interpretation: Performing Lab: Notes/Report: Test performed by [facility] [address] [place] [address] , [address], [place] [address] Nas Jack MD, Rollout Manager CLIA: [id number] C-Reactive Protein (CRP) 0.24 <0.50 mg/dL P-Sed Rate (ESR) Reviewed date:11/02/2023 11:24:57 AM Interpretation: Performing Lab: Notes/Report: Test performed by [facility] [address] [place] [address] , [address], [place] [address] Nas Jack MD, Rollout Manager CLIA: [id number] Erythrocyte Sedimentation Ra te (ESR), Automated 16 <21 mm/hr P-Lipase Reviewed date:11/02/2023 11:24:57 AM Interpretation: Performing Lab: Notes/Report: Test performed by [facility] [address] , [address], [place] [address] Nas Jack MD, Rollout Manager CLIA: [id number] Lipase 20.9 13.0-60.0 u/L P-Magnesium Reviewed date:11/02/2023 11:24:57 AM Interpretation: Performing Lab: Notes/Report: Test performed by [facility] [address] , [address], [place] [address] Nas Jack MD, Rollout Manager CLIA: [id number] Magnesium 2.0 1.6-2.4 mg/dL P-Phosphorus Reviewed date:11/02/2023 11:24:57 AM Interpretation: Performing Lab: Notes/Report: Test performed by [facility] [address] , [facility], [place] [address] Nas Jack MD, Rollout Manager CLIA: [id number] Phosphorus 3.3 2.5-4.5 mg/dL P-Vitamin D 25-Hydroxy Reviewed date:11/02/2023 11:24:57 AM Interpretation: Performing Lab: Notes/Report: Test performed by [facility] [address] , [address], [place] [address] Nas Jack MD, Rollout Manager CLIA: [id number] Vitamin D 25-Hydroxy 34.8 30.0-100.0 ng/mL Interpretation of Vitamin D 25 OH: < 20 ng/mL - Deficiency 20 - 29 ng/mL - Insufficiency 30 - 100 ng/mL - Sufficiency > 100 ng/mL - Super-therapeutic- toxicity may occur above this level. Clinical correlation required. REASON FOR VISIT follow up MEDICATIONS Medication SIG (Take, Route, Frequency, Duration) Notes Start Date End Date Status Losartan Potassium 100 MG 1 tab(s) orally once a day Active PROBLEMS Problem Type ICD Code Onset Dates Problem Status W/U Status Risk SNOMED Code Notes Problem Vitamin D deficiency (E55.9) Active confirmed [id number] Problem Weight loss (R63.4) Active confirmed [id number] VITAL SIGNS Weight 204.4 lbs 11/01/2023 Blood pressure systolic 132 mm Hg 11/01/19 24 Blood pressure diastolic 90 mm Hg 024 Heart Rate 98 /min 11/01/2023 Height 69 in 11/01/2023 BMI 30.18 kg/m2 11/01/2023 Encounters Encounter Location Date Provider Diagnosis [facility] [address] [facility] [address] [place] [id number] [place]20[place] Essential hypertensi on, hypertension with unspecified goal I10 ; Fatigue, unspecified type R53.83 ; Weight loss R63.4 ; Vitamin D deficiency E55.9 ; Vitamin B12 deficiency E53.8 ; Lumbago with sciatica, right side M54.41 and Diarrhea, unspecified type R19.7 ASSESSMENTS Encounter Date Diagnosis Assessment Notes Treatment Notes Treatment Clinical Notes 11/01/2023 Essential hypertension, hypertension with unspecified goal (ICD-10 - I10) 11/01/2023 Fatigue, unspecified type (ICD-10 - R53.83) 11/01/2023 Weight loss (ICD-10 - R63.4) 11/01/2023 Vitamin D deficiency (ICD-10 - E55.9) 11/01/2023 Vitamin B12 deficiency (ICD-10 - E53.8) 11/01/2023 Lumbago with sciatica, right side (ICD-10 - M54.41) 11/01/2023 Diarrhea, unspecified type (ICD-10 - R19.7) PLAN OF TREATMENT Medication Medication Name Sig Start Date Stop Date Notes Losartan Potassium 100 MG 1 tab(s) orally once a day Next Appt Details Follow Up: via phone to repo rt test results, Reason: Progress Notes * Examination Category Sub-Category Detail Notes Cardiology Lungs: clear, no rales or wheezes HEENT: unremarkable Heart sounds: RRR, normal S1, S2 Extremities: no leg edema General Appearance: pleasant, NAD History and Physical Notes * HPI (History of Present Illness) Category Sub-Category Detail Notes Cardiology Blood Pressure Elevated Pt here to f/u on hypertension, states he has been checking bp at home and it has been 130's/70's
--- OUTSIDE RECORDS SUMMARY | 2023-11-12 04:10 | XMS_ITS ---
Author Organization [facility] Address [address] [facility] [address] [place] [id number] Care Team Providers Care National Secretary Name Role Phone Clayton Avalos Primary Care Provider REASON FOR VISIT 6 month checkup Encounters Encounter Location Date Provider Diagnosis [facility] [address] [place] [id number] 11/05/2023 Clayton Avalos PLAN OF TREATMENT No Information
--- OUTSIDE RECORDS SUMMARY | 2023-11-12 04:11 | XMS_ITS ---
Author Organization [facility] Address [address] [facility] [address] [place] [id number] Care Team Providers Care Correctional Security Officer Name Role Phone Clayton Avalos Primary Care Provider RESULTS Component Value Reference Range Notes TEN-stool panel Reviewed date:10/08/2023 10:55:14 AM Interpretation:Negative Performing Lab: Notes/Report: Negative REASON FOR VISIT stool MEDICATIONS Medication SIG (Take, Route, Frequency, Duration) Notes Start Date End Date Status Losartan Potassium 100 MG 1 tab(s) orally once a day Active Encounters Encounter Location Date Provider Diagnosis [facility] [address] [facility] [address] [place] [id number] 10/06/2023 Clayton Avalos Acute diarrhea R19.7 ASSESSMENTS Encounter Date Diagnosis Assessment Notes Treatment Notes Treatment Clinical Notes 10/06/2023 Acute diarrhea (ICD-10 - R19.7) PLAN OF TREATMENT No Information
--- OUTSIDE RECORDS SUMMARY | 2023-11-12 04:11 | XMS_ITS | Patient Health Record ---
Author Organization [facility] Address [address] [place]UDE Martin [id number] Care Team Providers Care [employer]orer [employer] Name Role Phone Clayton Avalos Primary Care Provider ALLERGIES Allergen (clinical drug ingredient) Drug/Non Drug Allergy documented on EMR Reaction Allergy Type Onset Date Status lisinopril Lisinopril Cough Drug Allergy Activ e RESULTS Component Value Reference Range Notes P-Comprehensive Metabolic Pa kalie (CMP) Reviewed date:05/10/2023 08:36:44 AM Interpretation:Glu 193 Performing Lab: Notes/Report: Test performed by [facility] [address] [place] [address] , [address], [place] [address] Nas Jack MD, Bridge R[employer] CLIA: [id number] Sodium 139 135-145 mEq/L Potassium 4.0 3.5-5.3 mEq/L Chloride 105 97-108 mEq/L CO2 26 22-32 mEq/L Glucose 193 65-99 mg/dL BUN 14 8-23 mg/dL Creatinine 0.99 0.70-1.30 mg/dL Calcium 9.0 8.6-10.4 mg/dL eGFR by Creatinine 74 >59 mL/min/1.73m2 Protein 6.7 6.0-8.3 g/dL Albumin 4.0 3.5-5.3 g/dL Alkaline Phosphatase 85 40-129 IU/L ALT (SGPT) 15 <5-55 IU/L AST (SGOT) 20 <5-46 IU/L Bilirubin, Total 0.5 <0.2-1.2 mg/dL A/G Ratio 1.5 1.1-2.5 mg/dL P-Lipid Panel Reviewed date:05/10/2023 08:36:44 AM Interpretation:Hdl 29, Chol/Hdl 5.34, Ldl/Hdl 3.4 Performing Lab: Notes/Report: Test performed by [facility] [place], [place] [address] [place] [address] Nas Jack MD, Bridge Rigger CLIA: [id number] Cholesterol 155 <200 mg/dL Triglycerides 140 <150 mg/dL HDL Cholesterol 29 >39 mg/dL Cholesterol / HDL Ratio 5.34 0.00-4.99 Ratio Non-HDL Cholesterol 126 <130 mg/dL LDL Cholesterol (Calculation) 98 <130 mg/dL LDL Cholesterol Levels* Less than 100 mg/dL Optimal 100 to 129 mg/dL Near Optimal/ Above Optimal 130 to 159 mg/dL Borderline High 160 to 189 mg/dL High 190 mg/dL and above Very High * Categories as recommended by the 2004 ATPIII guidelines LDL/HDL Ratio 3.4 <3.3 Ratio LDL Cholesterol Patient History Test Date: 05/07/2023 LDL Results: 98 Units: mg/dL % Change: - P-TSH reflex to FT4 Reviewed date:05/10/2023 08:36:44 AM Interpretation:Normal Performing Lab: Notes/Report: Test performed by [facility] [address] [place] [address] [address], [place] [address] Nas Jack MD, Bridge Rigger CLIA: [id number] TSH reflex to FT4 3.17 0.43-5.25 mU/L P-Microalbumin/Creatinine, R andom Urine Sample Reviewed date:05/10/2023 08:36:44 AM Interpretation:Normal Performing Lab: Notes/Report: Test performed by [facility] [address] [place] [address] , [address], [place] [address] Nas Jack MD, Bridge Rigger CLIA: [id number] Albumin/Creatinine Ratio, Urine 17 0-30 ug/mg Microalbumin, Urine, Random 1.7 Creatinine, Urine 100.5 P-Uric Acid Reviewed date:05/10/2023 08:36:45 AM Interpretation:Normal Performing Lab: Notes/Report: Test performed by [facility] [address] [place] [address] , [address], [place] [address] Nas Jack MD, Bridge Rigger CLIA: [id number] Uric Acid 5.2 3.4-8.0 mg/dL CBC Venipuncture (in house) Reviewed date:11/02/2023 11:24:57 [...] Interpretation: Performing Lab: Notes/Report: Test performed by [facility] [address] [place] [address] , [address], [place] [address] Nas Jack MD, Bridge Rigger CLIA: [id number] Amylase 74 28-100 U/L P-Vitamin B12 Reviewed date:11/02/2023 11:24:57 AM Interpretation: Performing Lab: Notes/Report: Test performed by [facility] [address] [place] [address] , [address], [place] [address] Nas Jack MD, Bridge Rigger CLIA: [id number] Vitamin B12 485 203-8142 pg/mL P-Comprehensive Metabolic Pa kalie (CMP) Reviewed date:11/02/2023 11:24:57 AM Interpretation: Performing Lab: Notes/Report: Test performed by [facility] [address] [place] [address] , [address], [place] [address] Nas Jack MD, Bridge Rigger CLIA: [id number] Sodium 139 135-145 mmol/L Potassium 4.0 3.5-5.3 [...] <0.2-1.2 mg/dL A/G Ratio 1.6 1.1-2.5 mg/dL F-Y-Zzjcsfdm Protein (CRP) Reviewed date:11/02/2023 11:24:57 AM Interpretation: Performing Lab: Notes/Report: Test performed by [facility] [address] [place] [address] , [address], [place] [address] Nas Jack MD, Bridge Rigger CLIA: [id number] C-Reactive Protein (CRP) 0.24 <0.50 mg/dL P-Sed Rate (ESR) Reviewed date:11/02/2023 11:24:57 AM Interpretation: Performing Lab: Notes/Report: Test performed by [facility] [address] [place] [address] , [address], [place] [address] Nas Jack MD, Bridge Rigger CLIA: [id number] Erythrocyte Sedimentation Rate (ESR), Automated 16 <21 mm/hr P-Lipase Reviewed date:11/02/2023 11:24:57 AM Interpretation: Performing Lab: Notes/Report: Test performed by [facility] [address] [place] [address] , [address], [place] [address] Nas Jack MD, Bridge Rigger CLIA: [id number] Lipase 20.9 13.0-60.0 u/L P-Magnesium Reviewed date:11/02/2023 11:24:57 AM Interpretation: Performing Lab: Notes/Report: Test performed by [facility] [address] [place] [address] , [address], [place] [address] Nas Jack MD, Bridge Rigger CLIA: [id number] Magnesium 2.0 1.6-2.4 mg/dL P-Phosphorus Reviewed date:11/02/2023 11:24:57 AM Interpretation: Performing Lab: Notes/Report: Test performed by [facility] [address] [place] [address] , [place] [address] Nas Jack MD, Bridge Rigger CLIA: [id number] Phosphorus 3.3 2.5-4.5 mg/dL P-Vitamin D 25-Hydroxy Reviewed date:11/02/2023 11:24:57 AM Interpretation: Performing Lab: Notes/Report: Test performed by [facility] [address] [place] [address] , [place] [address] Nas Jack MD, Bridge Rigger CLIA: [id number] Vitamin D 25-Hydroxy 34.8 30.0-100.0 ng/mL Interpretation of Vitamin D 25 OH: < 20 ng/mL - Deficiency 20 - 29 ng/mL - Insufficiency 30 - 100 ng/mL - Sufficiency > 100 ng/mL - Super-therapeutic- toxicity may occur above this level. Clinical correlation required. H-DIFF Reviewed date:09/10/2023 04:33:05 PM Interpretation: Performing Lab: Notes/Report: SHAI MANUAL DIFFERENTIAL MANUAL DIFF TCC 100 NEUT%M 75 42-76 % LYMPH%M 16 10-50 % MONO%M 9 2-9 % PLTE Normal RM Normal TEN-stool panel Reviewed date:10/08/2023 10:55:14 AM Interpretation:Negative Performing Lab: Notes/Report: Negative H-CMP Reviewed date:09/10/2023 04:33:05 PM Interpretation:09/10/2023 appt Performing Lab: Notes/Report: NA 127 136-145 mmol/L K 4.1 3.5-5.1 mmoL/L CL 94 98-107 mmol/L CO2 23 22.0-30.0 mmol/L GAP 14.1 5-15 mEq/L BUN 51 9-20 mg/dl CREATT 2.20 0.66-1.25 mg/dl GFRAA 35 >60 ML/MIN EGFR 29 >60 ml/min GLU 101 74-100 mg/dl CA 8.1 8.4-10.2 mg/dl BILIT 1.6 0.2-1.3 mg/dl AST 190 17-59 U/L ALT 59 12-78 U/L TP 6.3 6.3-8.2 g/dl ALB 3.3 3.5-5.0 g/dl GLOB 3.0 1.3-3.2 g/dL AGRATIO 1.1 1.1-1.8 ALP 67 38-126 U/L H-CBC Reviewed date:09/10/2023 04:33:05 PM Interpretation: Performing Lab: Notes/Report: WBC 21.3 4.8-10.8 K/mm3 RBC 4.77 4.60-6.20 M/mm3 HGB 15.4 14.1-18.0 g/dL HCT 46.3 42.0-52.0 % MCV 97.1 80-94 fl MCH 32.3 27.0-31.2 pg MCHC 33.3 31.8-35.4 g/dL RDW 13.6 11.5-17.5 % PLT 247 142-424 K/mm3 MPV 9.1 7.4-10.4 fl NE% 83.4 37.0-80.0 % LY% 10.1 10-50 % MO% 5.9 1.7-9.3 % EO% 0.3 0.1-12.0 % BA% 0.2 0.1-2.0 % NE# 17.8 1.8-7.8 K/mm3 LY# 2.2 0.7-4.5 K/mm3 MO# 1.3 0.1-1.0 K/mm3 EO# 0.1 0.0-0.4 K/mm3 BA# 0.1 0-0.2 K/mm3 MRI : Spine, Lumbosacral, wi thout contrast Reviewed date:05/04/2023 08:27:08 AM Interpretation:Degenerative changes, canal stenosis and neuroforaminal narrowing. Progressed from prior exam. Performing Lab: Notes/Report: Degenerative changes, canal stenosis and neuroforaminal narrowing. Progressed from prior exam. P-Comprehensive Metabolic Pa kalie (CMP) Reviewed date:09/20/2023 03:13:43 PM Interpretation:glucose 104, Ca 8.4, alb 3.2, alt 86, ast 58, a/g 1.1 Performing Lab: Notes/Report: Test performed by [facility] [address] [place] [address] , [address], [place] [address] Nas Jack MD, Bridge Rigger CLIA: [id number] Sodium 139 135-145 mEq/L Potassium 4.7 3.5-5.3 mEq/L Chloride 103 97-108 mEq/L CO2 24 22-32 mEq/L Glucose 104 65-99 mg/dL BUN 15 8-23 mg/dL Creatinine 1.14 0.70-1.30 mg/dL Calcium 8.4 8.6-10.4 mg/dL eGFR by Creatinine 63 >59 mL/min/1.73m2 Protein 6.2 6.0-8.3 g/dL Albumin 3.2 3.5-5.3 g/dL Alkaline Phosphatase 88 40-129 IU/L ALT (SGPT) 86 <5-55 IU/L AST (SGOT) 58 <5-46 IU/L Bilirubin, Total 0.6 <0.2-1.2 mg/dL A/G Ratio 1.1 1.1-2.5 mg/dL CBC Fingerstick (in house) Reviewed date:09/20/2023 03:13:43 PM Interpretation:wbc 12.3, lym 13.2, gran 82.1 Performing Lab: Notes/Report: wbc 12.3, lym 13.2, gran 82.1 wbc 12.3 3.5 - 10 lym 13.2% 15 - 50 mid 4.7% 2 - 15 gran 82.1% 35 - 80 rbc 4.46 3.5 - 5.5 hgb 13.8 11.5 - 16.5 hct 41.9 35 - 55 mcv 93.8 75 - 100 mch 30.9 25 - 35 mchc 33.0 31 - 38 plat 358 100 - 400 CXR Reviewed date:09/29/2023 08:53:08 AM Interpretation:Negative Performing Lab: Notes/Report: Negative P-Vitamin D 25-Hydroxy Reviewed date:09/28/2023 11:03:29 AM Interpretation:20.6 Performing Lab: Notes/Report: Test performed by [facility] [address] , [address], [place] [address] Nas Jack MD, Bridge Rigger CLIA: [id number] Vitamin D 25-Hydroxy 20.6 30.0-100.0 ng/mL Interpretation of Vitamin D 25 OH: < 20 ng/mL - Deficiency 20 - 29 ng/mL - Insufficiency 30 - 100 ng/mL - Sufficiency > 100 ng/mL - Super-therapeutic- toxicity may occur above this level. Clinical correlation required. P-Phosphorus Reviewed date:09/28/2023 11:03:29 AM Interpretation: Normal Performing Lab: Notes/Report: Test performed by [facility] [address] [place] [address] , [address], [place] [address] Nas Jack MD, Bridge Rigger CLIA: [id number] Phosphorus 3.2 2.5-4.5 mg/dL P-Magnesium Reviewed date:09/28/2023 11:03:29 AM Interpretation: Normal Performing Lab: Notes/Report: Test performed by [facility] [address] [place] [address] [address], [place] [id number] Nas Jack MD, Bridge Rigger CLIA: [id number] Magnesium 2.4 1.6-2.4 mg/dL P-Comprehensive Metabolic Pa kalie (CMP) Reviewed date:09/28/2023 11:03:29 AM Interpretation: Normal Performing Lab: Notes/Report: Test performed by [facility] [address] [place] [address] , [address], [place] [address] Nas Jack MD, Bridge Rigger CLIA: [id number] Sodium 139 135-145 mmol/L Potassium 4.8 3.5-5.3 mmol/L Chloride 105 97-108 mmol/L CO2 25 22-32 mmol/L Glucose 94 65-99 mg/dL BUN 11 8-23 mg/dL Creatinine 1.01 0.70-1.30 mg/dL Calcium 8.7 8.6-10.4 mg/dL eGFR by Creatinine 73 >59 mL/min/1.73m2 Protein 6.4 6.0-8.3 g/dL Albumin 3.6 3.5-5.3 g/dL Alkaline Phosphatase 112 40-129 IU/L ALT (SGPT) 21 <5-55 IU/L AST (SGOT) 21 <5-46 IU/L Bilirubin, Total 0.4 <0.2-1.2 mg/dL A/G Ratio 1.3 1.1-2.5 mg/dL P-Vitamin B12 Reviewed date:09/28/2023 11:03:29 AM Interpretation:301 Performing Lab: Notes/Report: Test performed by [facility] [address] [place] [address] , [address], [place] [address] Nas Jack MD, Bridge Rigger CLIA: [id number] Vitamin B12 696 636-2099 pg/mL CBC Venipuncture (in house) Reviewed date:09/27/2023 04:13:56 PM Interpretation: Performing Lab: Notes/Report: wbc 9.0 3.5 - 10 lymph 17.8% 15 - 50 mid 5.1% 2 - 15 gran 77.1% 35 - 80 rbc 4.76 3.5 - 5.5 hgb 14.6 11.5 - 16.5 hct 44.0 35 - 55 mcv 92.2 75 - 100 mch 30.7 25 - 35 mchc 33.3 31 - 38 platlet 502 100 - 400 CBC Fingerstick (in house) Reviewed date:09/08/2023 10:14:17 AM Interpretation: Performing Lab: Notes/Report: wbc 16.1 3.5 - 10 lym 14.5 15 - 50 mid 3.8 2 - 15 gran 81.7 35 - 80 rbc 5.16 3.5 - 5.5 hgb 16.1 11.5 - 16.5 hct 48.8 35 - 55 mcv 94.4 75 - 100 mch 31.2 25 - 35 mchc 33.0 31 - 38 plat 174 100 - 400 REASON FOR REFERRAL No Information MEDICATIONS Medication SIG (Take, Route, Frequency, Duration) Notes Start Date End Date Status Losartan Potassium 100 MG 1 tab(s) orally once a day Active IMMUNIZATIONS Vaccine Route Administration Date Status Comme nts COVID 19 Moderna Unknown 05/07/2020 Administered COVID 19 Moderna Unknown 01/15/2021 Administered COVID 19 Moderna Unknown 10/09/2021 Administered Fluzone High Dose (65yr and older) IM Intramuscular 01/31/2013 Administered Fluzone High Dose (65yr and older) IM Intramuscular 2014 Administered Fluzone High Dose (65yr and older) IM Intramuscular 02/10/2016 Administered Fluzone High Dose (65yr and older) IM Intramuscular 01/29/2017 Administered Fluzone High Dose (65yr and older) IM Intramuscular 01/21/2018 Administered Fluzone High Dose (65yr and older) IM Intramuscular 12/29/2018 Administered Fluzone High Dose (65yr and older) IM Intramuscular 12/28/2019 Administered Fluzone High Dose (65yr and older) IM Intramuscular 02/18/2021 Administered Fluzone High Dose (65yr and older) IM Intramuscular 01/19/2022 Administered Fluzone High Dose (65yr and older) IM Intramuscular 01/25/2023 Administered xFlu shot-36 months and older IM Intramuscular 01/24/2010 Administered xFlu shot-36 months and older IM Intramuscular 02/16/2011 Administered xFluzone (6mos and older)-trivalent IM Intramuscular 02/11/2012 Administered SOCIAL HISTORY Sex Assigned At : Social History Observation Description Sex Assigned At Unknown PROBLEMS Problem Type ICD Code Onset Dates Problem Status W/U Status Risk SNOMED Code Notes Problem Vitamin D deficiency (E55.9) Active confirmed 96795626 Problem Hypertriglyceridemia (E78.1) Active confirmed 270530821 Problem Weight loss (R63.4) Active confirmed 89 499352 Problem Lumbar facet arthropathy (M47.816) Active confirmed 764421780 Problem Lumbar disc disease (M51.9) Active confirmed 202384562 Problem Lumbago with sciatic a, right side (M54.41) Active confirmed 363622798 Problem Essential hypertensi on, hypertension with unspecified goal (I10) Active confirmed 36041443 VITAL SIGNS Heart Rate 98 /min 11/01/2023 Blood pressure diastolic 90 mm Hg 11/01/2023 Height 69 in 11/01/2023 Blood pressure systolic 132 mm Hg 11/01/2023 Weight 204.4 lbs 11/01/2023 BMI 30.18 kg/m2 11/01/2023 Encounters Encounter Location Date Provider Diagnosis [facility] [address] [facility] [place], [place] [id number] 01/25/2023 Clayton [place] Lumbago with sciatic a, right side M54.41 ; Lumbar disc disease M51.9 ; Lumbar facet arthropathy M47.816 ; 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 and Encounter for immunization Z23 [facility] [address] [facility] [address] [place], [place] [id number] 02/11/2023 Clayton [place] Essential hypertensi on, hypertension with unspecified goal I10 [facility] [address] [place], [place] [id number] 04/09/2023 Clayton [place] Lumbago with sciatic a, right side M54.41 ; Lumbar disc disease M51.9 ; Lumbar facet arthropathy M47.816 ; Spinal stenosis of lumbar region, unspecified whether neurogenic claudication present M48.061 and Right leg weakness R29.898 [facility] [address] [facility] [address] [place], [place] [id number] 05/04/2023 Clayton [place] [facility] [address] [facility] [address] [place], [place] [id number] 05/07/2023 Clayton [place] Essential hypertensi on, hypertension with unspecified goal I10 ; Hypertriglyceridemia E78.1 ; Lumbago with sciatica, right side M54.41 ; Lumbar facet arthropathy M47.816 and Lumbar disc disease M51.9 [facility] [address] [facility] [address] [place], [place] [id number] 05/10/2023 Clayton [place] [facility] [address] [facility] [address] [place], [place] [id number] 06/08/2023 Clayton [place] [facility] [address] [facility] [address] [place] [id number] 07/28/2023 Clayton [place] Essential hypertensi on, hypertension with unspecified goal I10 and Lumbago with sciatica, right side M54.41 [facility] [address] [facility] [address] [place], [place] [id number] 08/25/2023 Clayton [place] Essential hypertensi on, hypertension with unspecified goal I10 [facility] [address] [facility] [address] [place] [id number] 09/06/2023 Clayton [place] Gastroenteritis K52. 9 [facility] [address] [facility] [address] [place] [id number] 09/09/2023 Clayton [place] Acute vomiting R11.1 0 and Dehydration E86.0 [facility] [address] [facility] [address] [place] [id number] 09/10/2023 Clayton [place] Gastroenteritis K52. 9 ; LAN (acute kidney injury) N17.9 and Elevated LFTs R79.89 [facility] [address] [place], [place] [id number] 09/17/2023 Clayton [place] Gastroenteritis K52. 9 and Elevated LFTs R79.89 [facility] [address] [facility] [address] [place] [id number] 09/20/2023 Clayton [place] [facility] [address] [facility] [address] [place] [id number] 09/27/2023 Clayton [place] Diarrhea, unspecifie d type R19.7 ; Elevated LFTs R79.89 ; LAN (acute kidney injury) N17.9 ; Fatigue, unspecified type R53.83 ; Lumbago with sciatica, right side M54.41 and Productive cough R05.8 [facility] [address] [facility] [address] [place] [id number] 09/28/2023 Clayton [place] [facility] [address] [facility] [address] [place] [id number] 10/06/2023 Clayton [place] Acute diarrhea R19.7 [facility] [address] [facility] [address] [place], [place] [id number] 11/01/2023 Clayton [place] Essential hypertensi on, hypertension with unspecified goal I10 ; Fatigue, unspecified type R53.83 ; Weight loss R63.4 ; Vitamin D deficiency E55.9 ; Vitamin B12 deficiency E53.8 ; Lumbago with sciatica, right side M54.41 and Diarrhea, unspecified type R19.7 [facility] [address] [facility] [address] [place] [address], [place] [id number] 11/05/2023 Clayton Avalos ASSESSMENTS Encounter Date Diagnosis Assessment Notes Treatment Notes Treatment Clinical Notes 02/11/2023 Essential hypertensi on, hypertension with unspecified goal (ICD-10 - I10) 04/09/2023 Lumbar disc disease (ICD-10 - M51.9) 04/09/2023 Lumbago with sciatic a, right side (ICD-10 - M54.41) 08/25/2023 Essential hypertensi on, hypertension with unspecified goal (ICD-10 - I10) 09/06/2023 Gastroenteritis (ICD -10 - K52.9) 09/10/2023 Gastroenteritis (ICD -10 - K52.9) 09/10/2023 LAN (acute kidney in jury) (ICD-10 - N17.9) 09/17/2023 Gastroenteritis (ICD -10 - K52.9) 09/17/2023 Elevated LFTs (ICD-1 0 - R79.89) 10/06/2023 Acute diarrhea (ICD- 10 - R19.7) 07/28/2023 Lumbago with sciatic a, right side (ICD-10 - M54.41) 07/28/2023 Essential hypertensi on, hypertension with unspecified goal (ICD-10 - I10) 11/01/2023 Fatigue, unspecified type (ICD-10 - R53.83) 11/01/2023 Essential hypertensi on, hypertension with unspecified goal (ICD-10 - I10) 09/27/2023 Elevated LFTs (ICD-1 0 - R79.89) 09/27/2023 Diarrhea, unspecifie d type (ICD-10 - R19.7) Provided swab for patient to collect a stool sample at home for a PCR test 09/09/2023 Dehydration (ICD-10 - E86.0) 09/09/2023 Acute vomiting (ICD- 10 - R11.10) Will give a dose of Rocephin and Zofran IV today 05/07/2023 Hypertriglyceridemia (ICD-10 - E78.1) 05/07/2023 Essential hypertensi on, hypertension with unspecified goal (ICD-10 - I10) 01/25/2023 Lumbar disc disease (ICD-10 - M51.9) 01/25/2023 Lumbago with sciatic a, right side (ICD-10 - M54.41) Patient wants to try traction for treatment prior to imaging. 05/07/2023 Lumbago with sciatic a, right side (ICD-10 - M54.41) 01/25/2023 Lumbar facet arthrop athy (ICD-10 - M47.816) 09/27/2023 LAN (acute kidney in jury) (ICD-10 - N17.9) 11/01/2023 Weight loss (ICD-10 - R63.4) 09/10/2023 Elevated LFTs (ICD-1 0 - R79.89) 04/09/2023 Lumbar facet arthrop athy (ICD-10 - M47.816) 04/09/2023 Spinal stenosis of l umbar region, unspecified whether neurogenic claudication present (ICD-10 - M48.061) 11/01/2023 Vitamin D deficiency (ICD-10 - E55.9) 05/07/2023 Lumbar facet arthrop athy (ICD-10 - M47.816) 09/27/2023 Fatigue, unspecified type (ICD-10 - R53.83) 01/25/2023 Spinal stenosis of l umbar region without neurogenic claudication (ICD-10 - M48.061) 01/25/2023 Encounter for immuni zation (ICD-10 - Z23) 05/07/2023 Lumbar disc disease (ICD-10 - M51.9) 09/27/2023 Lumbago with sciatic a, right side (ICD-10 - M54.41) 11/01/2023 Vitamin B12 deficien cy (ICD-10 - E53.8) 04/09/2023 Right leg weakness ( ICD-10 - R29.898) 09/27/2023 Productive cough (IC D-10 - R05.8) 11/01/2023 Lumbago with sciatic a, right side (ICD-10 - M54.41) 11/01/2023 Diarrhea, unspecifie d type (ICD-10 - R19.7) 09/10/2023 Other Plan to check CBC and CMP in 1 week PLAN OF TREATMENT No Information Insurance Providers Payer Name Payer Address Payer Phone Subscriber Number Group Number Insured Name Patient Relationship to Insured Coverage Start Date Coverage End Date [employer] (MEDICAR E) [address] [address] [place] [address] [id number] Reilly Cross Self - patient is the insured MEDICATIONS ADMINISTERED Medication Instructions Date of Administration Dosage Notes Zofran 09/06/2023 2 mL MEDICAL (GENERAL) HISTORY Medical History History ICD Code Hypertension Low Back Pain, MRI 2018, s/p pain manage ment evaluation, repeat MRI 2023 Lumbar Disc Disease Lumbar facet arthropathy Lumbar Spinal Stenosis Vitamin B 12 deficiency Vitamin D deficiency Surgical History Surgery Date(Month/Year) LT Cataract Removal 2014 Cholecystectomy 08/2017 Spinal Injection 06/17/2018 Hospitalization History Reason Date(Month/Year) Broken Nose 1972 TIA- [facility] 06/06/2015
== END 2023-11-11 23:59 | disposition home or self-care (01) ==
LOC: SC.PAIN 09:24
PROVIDERS: PCP Family Medicine; Visit Provider Nurse Practitioner Family
DX: M25.551 Pain in right hip (principal); M79.604 Pain in right leg
CPT/HCPCS: 99212; G0463

== ENCOUNTER 2023-11-11 10:02 | Outpatient (CLI) | payer MEDICARE, SELFPAY ==
--- NOTE | 2023-11-11 10:11 | XR_ITS ---
FINAL REPORT CLINICAL HISTORY: HIP PAIN STATES HAD PAIN INJECTIONS IN HIS BACK, NOW PLANNING ON TRYING RIGHT HIP INJECTIONS COMPARISON: None FINDINGS: RIGHT HIP Two views of the right hip demonstrate no acute fracture or dislocation. There is mild to moderate degenerative change in the hips bilaterally. There is also degenerative change in the lower lumbar spine. The visualized bony structures are well aligned. No soft tissue abnormality is seen. IMPRESSION: Degenerative change in the hips and lower lumbar spine, without acute bony abnormality. Reviewed, Interpreted and Dictated by Rao Chacon III, MD Transcribed by Daina Gipson Authenticated and [facility]
== END 2023-11-11 23:59 | disposition home or self-care (01) ==
LOC: RAD 10:04
PROVIDERS: PCP Family Medicine; Visit Provider Nurse Practitioner Family
DX: M25.551 Pain in right hip (principal); M79.604 Pain in right leg
CPT/HCPCS: 73502; 99212; G0463

== ENCOUNTER 2023-11-23 12:48 | Day surgery (SDC) | payer MEDICARE, SELFPAY ==
[2023-11-23 13:13] VITALS: BP 118/75; PULSE 82; RESP 16; TEMP 36.7; O2SAT 96; BMI 28.7
[2023-11-23] MEDS: BUPIVACAINE 0.25% 10ML INJ 25 MG IJ (13:30)
[2023-11-23] MEDS: methylPREDNISolone ACETATE 80MG/ML VIAL 80 MG (13:31)
[2023-11-23] MEDS: LIDOCAINE 1% 5ML PF VIAL 5 ML (13:31)
[2023-11-23 13:32] VITALS: BP 138/84; PULSE 87; RESP 18; O2SAT 95
[2023-11-23 13:33] VITALS: BP 138/84; PULSE 87; RESP 18; O2SAT 95
[2023-11-23 13:36] VITALS: BP 134/84; PULSE 84; RESP 18; O2SAT 96
--- NOTE | 2023-11-23 13:37 | EXP.PAIN.PRO ---
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 Post-procedure Diagnosis:: Same. Indications for Procedure:: Patient is a very pleasant 87-year-old male comes our clinic today for a right intra-articular hip injection. Patient describes right hip pain as constant, dull, aching. Patient reports right hip pain intensifies with ambulation. Intensifies with sitting. He rates his pain 7/10. Procedure Details:: Details of the procedure were explained to the patient. The patient was taken to procedure room placed in the supine position. The area over the right hip was cleaned using chlorhexidine as a cleansing solution. Using fluoroscopy guidance a 3 and half inch 22-gauge spinal needle was used to access the right hip joint without difficulty. After negative aspiration 3 cc of 1% lidocaine +3 cc of 0.25% Marcaine and 40 mg of Depo-Medrol was injected. Needle was withdrawn. Band-Aid applied. Patient tolerated procedure without difficulty. There are no complications. Plan and Disposition:: Patient was discharged without incident.
== END 2023-11-23 13:36 | disposition home or self-care (01) ==
PROVIDERS: PCP Family Medicine; Visit Provider Nurse Anesthetist, Certified Registered
DX: M16.11 Unilateral primary osteoarthritis, right hip (principal); M25.551 Pain in right hip; G89.29 Other chronic pain
CPT/HCPCS: 20610; 77002; J1010

== ENCOUNTER 2023-12-22 10:27 | Outpatient (POV) | payer MEDICARE, SELFPAY ==
[2023-12-22 10:40] VITALS: BP 133/77; PULSE 88; RESP 16; O2SAT 96; BMI 28.7
--- NOTE | 2023-12-22 10:55 | EXP.PAIN.SOA ---
[facility] Disclaimer: The information contained in this section may have been updated after the patient was seen, as this information can be updated by other users. Medical History (Updated 12/22/23 @ 10:58 by Holly Paula APRN) Chronic pain HTN (hypertension) Surgical History Surgical history unknown Family History Other Unknown family medical history Social History Smoking Status: Never smoker second hand exposure: No alcohol intake: never current occupational status: other Travel in the last 8 weeks: None household members: spouse housing: house current occupation: [employer] current occupational exposures/hazards: No caffeine: Yes PM Subjective & Objective Subjective Subjective:: Patient is a pleasant 88-year-old male who presents today for follow-up of right intra-articular hip injection on 11/23/2023. Patient rates his pain today an 8 out of 10 and states that this injection seem to make no difference. He states that even with the numbing medication he felt the same when he got up off the procedure table. Patient does describe it as a dull aching sensation that is worse with increased activity. Patient does state it interferes with his ability perform activities of daily living such as cooking and cleaning. Patient does also state that it is affecting his sleeping. He is trying to do conservative treatments before proceeding forward with surgical intervention. Patient would like to try additional injection therapy. Patient has completed physical therapy with no additional change in his symptoms. His Marlon has been reviewed and is appropriate. Review of Systems: General: No recent weight changes, no fever, no sleep disturbances Respiratory: No cough, no shortness of air, no recurring pulmonary infections Cardiovascular/peripheral vascular: No chest pain, no palpitations, no edema, no shortness of breath Gastrointestinal: No new onset incontinence, normal bowel movements reported Genitourinary: No new onset incontinence Musculoskeletal: Low back, right hip pain Psychiatric: [Normal mood/affect] Neurological: [Denies weakness in extremities], [denies balance issues] Pain at rest (0-10 scale): 8 Objective Objective:: Physical Exam: General: Alert and oriented x3, no acute distress, pleasant and cooperative Lungs: Respirations even and unlabored, symmetrical chest expansion Eyes: PERRL Musculoskeletal: Flexion and extension of lumbar [spine] somewhat guarded secondary to pain, [antalgic gait noted] point tenderness along right SI with positive right Vick's, Rosey's, Gaenslen's, compression and distraction exam Neurological: Speech clear, no gross sensory deficit Has patient had previous pain injection?: Yes Percent improvement in pain since last injection: Minimal Conservative treatment options previously tried: Home exercise plan Length of treatment: Longer than 6 weeks Meds Home Medications and Allergies Home Medications ?Medication ?Instructions ?Recorded ?Confirmed ?Type losartan 50 mg tablet 50 mg PO DAILY blood pressure 10/24/18 12/22/23 History New Prescriptions to Start Prescriptions: Allergies Allergy/AdvReac Type Severity Reaction Status Date / Time No Known Allergies Allergy Verified 12/22/23 10:41 Assessment and Plan *Assessment and plan (1) Sacroiliitis: Status: Acute Category: Medical Code(s): M46.1 - Sacroiliitis, not elsewhere classified Plan Patient is experiencing continued pain throughout his low back and right hip with limited range of motion. Patient did have point tenderness along his right SI and a positive right Vick's, Rosey's, Gaenslen's, compression and distraction exam. I did discuss with the patient that he may benefit from a right SI injection. Risk and benefits were discussed with the patient and he would like to proceed forward with this plan of care. Patient has tried and failed conservative therapy including completed physical therapy, recent chiropractor therapy and continued at home stretching exercise for longer than 6 weeks. We will submit for a right SI injection under fluoroscopy. Patient has been instructed to contact the clinic with any concerns before the next appointment. Dr. Healy has reviewed this note and agrees with this plan of care. This note was dictated using voice recognition software and make contain errors or omissions. All injections are used with Lidocaine or Bupivacaine and Depo Medrol.
== END 2023-12-22 23:59 | disposition home or self-care (01) ==
LOC: SC.PAIN 10:30
PROVIDERS: PCP Family Medicine; Visit Provider Nurse Practitioner Family
DX: M46.1 Sacroiliitis, not elsewhere classified (principal); Z73.89 Other problems related to life management difficulty
CPT/HCPCS: 99212; G0463

== ENCOUNTER 2024-01-11 13:46 | Day surgery (SDC) | payer MEDICARE, SELFPAY ==
[2024-01-11 14:01] VITALS: BP 143/87; PULSE 84; RESP 16; TEMP 36.6; O2SAT 98; BMI 28.7
[2024-01-11] MEDS: LIDOCAINE 1% 5ML PF VIAL 5 ML (14:27)
[2024-01-11] MEDS: BUPIVACAINE 0.25% 10ML INJ 25 MG IJ (14:27)
[2024-01-11] MEDS: methylPREDNISolone ACETATE 80MG/ML VIAL 80 MG (14:27)
[2024-01-11 14:28] VITALS: BP 136/76; PULSE 93; RESP 18; O2SAT 96
[2024-01-11 14:29] VITALS: BP 136/76; PULSE 93; RESP 18; O2SAT 96
--- NOTE | 2024-01-11 14:49 | EXP.PAIN.PRO ---
Procedure Date: 01/11/24 Time: 14:00 Anesthesiologist:: Moses Dugan CRNA Complications:: None Pre-procedure Diagnosis:: Right sacroiliitis Post-procedure Diagnosis:: Same Indications for Procedure:: Patient is a very pleasant 88-year-old male who comes our clinic today for right sacroiliac joint injection of cortisone and local anesthetic. Patient describes low lumbar back pain off the midline to the right. He has extreme point tenderness over the right sacroiliac joint upon examination. He rates his pain 8/10. Procedure Details:: Procedure: Right sacroliliac joint injection under fluoroscopy Informed consent was obtained and the risk and benefits of the procedure were explained to the patient.~ The patient was taken to the procedure room and noninvasive monitors were placed including noninvasive blood pressure cuff and pulse oximeter.~ The patient was placed prone on the procedure table.~ The~ right hip was cleansed using Betadine as a cleansing solution.~ C-arm fluorosocpy was used to view the right SI joint.~ The skin and subcutaneous tissues were anesthetized using Lidocaine 1.5% and a 25-gauge needle.~ After this, a 22-gauge spinal needle was inserted under fluoroscopic guidance into the inferior aspect of the right SI joint.~ Omnipaque dye was injected and a good spread was seen throughout the joint.~ After this, approximately 5 mL of bupivacaine 0.25% and Depo-Medrol 40 mg was incrementally injected into the sacroiliac joint.~ The patient tolerated the procedure well with no complications.~ The patient was observed in the Pain Clinic, then discharged home neurologically intact.~ Plan and Disposition:: Patient was discharged without incident.
[2024-01-11 14:55] VITALS: BP 143/87; PULSE 84; RESP 16; O2SAT 98
== END 2024-01-11 14:55 | disposition home or self-care (01) ==
PROVIDERS: PCP Family Medicine; Visit Provider Nurse Anesthetist, Certified Registered
DX: M46.1 Sacroiliitis, not elsewhere classified (principal)
CPT/HCPCS: 27096; G0260; J1010

== ENCOUNTER 2024-01-31 09:58 | Outpatient (POV) | payer MEDICARE, SELFPAY ==
[2024-01-31 10:49] VITALS: BP 136/69; PULSE 52; RESP 16; O2SAT 99; BMI 27.2
--- NOTE | 2024-01-31 11:19 | A.OFFVIS_ITS ---
[facility] Disclaimer: The information contained in this section may have been updated after the patient was seen, as this information can be updated by other users. Medical History Chronic pain HTN (hypertension) Surgical History Surgical history unknown Family History Other Unknown family medical history Social History Smoking Status: Never smoker second hand exposure: No alcohol intake: never current occupational status: other Travel in the last 8 weeks: None household members: spouse housing: house current occupation: [employer] current occupational exposures/hazards: No caffeine: Yes PM Subjective & Objective Subjective Subjective:: Patient is a pleasant 88-year-old male who presents today for follow-up of right SI injection on 01/11/2024. Today he rates his pain a 0 out of 10 and states that he is not having any pain while he is seated or laying down however as soon as he gets up to stand and walk he has significant pain there on his right hip and buttocks area that does go into his upper thigh and the back of his leg. Patient does state it is difficult to describe and that on the day of this injection he had discussed with Pat regarding referring him to a neurosurgeon they are in [place] however he has not heard from this provider. He does state that he is unsure if he gave the correct telephone number. Patient does state that he would like to make sure that this gets sent over. He states the pain is significant and interferes with all activities of daily living. He states that he just cannot do hardly anything due to the worsening pain with ambulation. His Marlon has been reviewed and is appropriate. Review of Systems: General: No recent weight changes, no fever, no sleep disturbances Respiratory: No cough, no shortness of air, no recurring pulmonary infections Cardiovascular/peripheral vascular: No chest pain, no palpitations, no edema, no shortness of breath Gastrointestinal: No new onset incontinence, normal bowel movements reported Genitourinary: No new onset incontinence Musculoskeletal: Low back, right hip pain, right leg pain Psychiatric: [Normal mood/affect] Neurological: [Denies weakness in extremities], [denies balance issues] Pain at rest (0-10 scale): 0 Objective Objective:: Physical Exam: General: Alert and oriented x3, no acute distress, pleasant and cooperative Lungs: Respirations even and unlabored, symmetrical chest expansion Eyes: PERRL Musculoskeletal: Flexion and extension of lumbar [spine] somewhat guarded secondary to pain, [antalgic gait noted] Neurological: Speech clear, no gross sensory deficit FINDINGS: Multiplanar MR imaging of the lumbar spine was performed without contrast. On the sagittal T2-weighted images, disc degeneration is seen throughout. There are endplate changes at several levels. There is mild retrolisthesis of L3 on L4 and mild anterolisthesis of L4 on L5. 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 There is no evidence of fracture. No bony mass is identified. The conus is seen at approximately the L1 level and has an unremarkable appearance. L1-2: Annular disc bulge with facet arthropathy and mild right neuroforaminal narrowing. L2-3: Annular disc bulge with facet arthropathy and osteophytes. There is moderate bilateral neuroforaminal narrowing. L3-4: Annular disc bulge with facet arthropathy and osteophytes. There is severe bilateral neuroforaminal narrowing. There is moderate central canal stenosis with AP diameter thecal sac measuring 5 mm. L4-5: Annular bulge with facet arthropathy and osteophytes. Central disc protrusion with bilateral lateral recess stenosis. There is severe central canal stenosis with AP diameter of the thecal sac measuring 4 mm. There is severe bilateral neuroforaminal narrowing. L5-S1: Annular disc bulge with facet arthropathy and osteophytes. There is a central disc protrusion. There is moderate right and severe left neuroforaminal narrowing. IMPRESSION: Degenerative changes, canal stenosis and neuroforaminal narrowing, progressed from prior exam. Reviewed, Interpreted and Dictated by Rao Chacon III, MD Transcribed by Ramonita Dillard Authenticated and [facility] Has patient had previous pain injection?: Yes Percent improvement in pain since last injection: Minimal Conservative treatment options previously tried: Home exercise plan Length of treatment: Longer than 12 weeks Meds Home Medications and Allergies Home Medications ?Medication ?Instructions ?Recorded ?Confirmed ?Type losartan 50 mg tablet 50 mg PO DAILY blood pressure 10/24/18 01/31/24 History New Prescriptions to Start Prescriptions: Allergies Allergy/AdvReac Type Severity Reaction Status Date / Time No Known Allergies Allergy Verified 12/22/23 10:41 Assessment and Plan *Assessment and plan (1) Lumbar spinal stenosis: Status: Acute Qualifiers: Neurogenic claudication status: with neurogenic claudication Qualified Code(s): M48.062 - Spinal stenosis, lumbar region with neurogenic claudication Category: Medical Code(s): M48.061 - Spinal stenosis, lumbar region without neurogenic claudication (2) Degenerative disc disease, lumbar: Status: Acute Category: Medical Code(s): M51.36 - Other intervertebral disc degeneration, lumbar region (3) Lumbar radiculopathy: Status: Chronic Category: Medical Code(s): M54.16 - Radiculopathy, lumbar region (4) Chronic pain syndrome: Status: Acute Category: Medical Code(s): G89.4 - Chronic pain syndrome Plan I did discuss with the patient that I will make sure to send over everything to Dr. Joon Diaz regarding the referral. Patient has tried and failed conservative therapy including multiple injections including lumbar epidurals, right transforaminal epidural, hip injection as well as right SI injection. Patient was counseled that we will send the referral over and that we will wait to hear from him for his next follow-up. Patient was counseled to call us if he needs anything additional between now and his next visit. Patient acknowledges understanding and agrees with this plan of care. Patient does state he would prefer to go to the [place] location because it is a lot easier than having to go to the [facility]. We will send this info over to [facility] orthopedics office to let them know. Patient has been instructed to contact the clinic with any concerns before the next appointment. Dr. Healy has reviewed this note and agrees with this plan of care. This note was dictated using voice recognition software and make contain errors or omissions. All injections are used with Lidocaine or Bupivacaine and Depo Medrol.
== END 2024-01-31 23:59 | disposition home or self-care (01) ==
LOC: SC.PAIN 09:58
PROVIDERS: PCP Family Medicine; Visit Provider Nurse Practitioner Family
DX: M48.062 Spinal stenosis, lumbar region with neurogenic claudication (principal); G89.4 Chronic pain syndrome; M51.16 Intervertebral disc disorders with radiculopathy, lumbar region; Z73.89 Other problems related to life management difficulty
CPT/HCPCS: 99212; G0463

== ENCOUNTER 2024-03-23 07:16 | Outpatient (CLI) | payer MEDICARE, SELFPAY ==
--- NOTE | 2024-03-23 07:20 | CT_ITS ---
FINAL REPORT TECHNIQUE: After the administration of oral and intravenous contrast, axial images were obtained through the abdomen and pelvis by computed tomography. The study was performed with techniques to keep radiation dose as low as reasonably achievable, (ALARA). Individual dose reduction techniques using automated exposure control or adjustment of mA and/or kV according to the patient's size were employed. CLINICAL HISTORY: Abdominal pain, weight loss, nausea FINDINGS: Abdomen: There is moderate bilateral pleural effusions with overlying atelectasis. An enlarged lymph node adjacent to the distal esophagus measures up to 2.0 cm. This is well-seen on image 19 of series 2. The liver parenchyma is homogeneous. The gallbladder is present. The spleen, pancreas, adrenals and kidneys appear unremarkable. The aorta is normal in caliber. There is no free fluid or adenopathy. Pelvis: The appendix is unremarkable. The urinary bladder is unremarkable. There is no free fluid or adenopathy. There are advanced hypertrophic changes of osteoarthritis and degenerative disc disease throughout the lower lumbar spine with significant spinal and neuroforaminal compromise at L3-4, L4-5, and L5-S1. IMPRESSION: Moderate bilateral pleural effusions and overlying atelectasis. Advanced changes of degenerative disc disease in the lower lumbar spine. Enlarged lymph node adjacent to the distal esophagus. Reviewed, Interpreted and Dictated by Milton Olsen MD Transcribed by Malini Delarosa Authenticated and [facility]
[2024-03-23 07:46] LABS: Blood Urea Nitrogen 14 mg/dl (9-20); Estimated Glomerular Filt Rate 63 ml/min (>60); GFR (African American) 77 ML/MIN (>60)
[2024-03-23] MEDS: SODIUM CHLORIDE 0.9% 10ML SYR (RAD ONLY) 10 ML IV (08:21)
[2024-03-23] MEDS: IOPAMIDOL-370 (76%);100ML BOTTLE 75 ML IV (08:21)
[2024-03-23] MEDS: BARIUM SULFATE(READI-CAT2);450ML BOTTLE 450 ML PO (08:21)
== END 2024-03-23 23:59 | disposition home or self-care (01) ==
PROVIDERS: PCP Family Medicine; Visit Provider Family Medicine
DX: R10.84 Generalized abdominal pain (principal); R11.0 Nausea; R63.4 Abnormal weight loss
CPT/HCPCS: 36415; 74177; 82565; 84520; Q9967

== ENCOUNTER 2024-04-03 13:07 | Outpatient (CLI) | payer MEDICARE, SELFPAY ==
--- NOTE | 2024-04-03 13:10 | CA_ITS ---
APPROVED REPORT EXAM: Comprehensive 2D, Doppler, and color-flow Echocardiogram Sterilization Specialist: Akosua Hare, RT(R) Ht: 5 ft 10 in Wt: 186lbs BSA: 2.02 BP: 137/85 mmHg Indications: SOB, HTN, pre op laminectomy for spinal stenosis, bilateral plueral effusions Echo Enhancing Agent Indication: Endocardial border delineation Agent(s) / Amount(s) Used: Definity 2 cc 2D Dimensions LA Volume 67.00 mL LA Volume Index 33.00 mL/m2 (M/F) 16-34 M-Mode Dimensions RVDd 3.38 cm (0.9-2.6) LA Diam 4.12 cm (1.9-4.0) LVDd 6.36 cm (3.5-5.7) LVDs 5.03 cm (3.5-5.7) IVSd 0.85 cm (0.6-1.1) PWd 0.72 cm (0.6-1.1) EF (Teich) 41.70% FS 20.90% EDV (Teich) 205.60 mL ESV (Teich) 119.90 mL LV Diastology E Decel Time 150 (160-240 msec) E/A Ratio 2.41 Aortic Valve JULIÁN Index 1.22 cm2/m2 AoV Peak Miguel. 117.0 (50-130 cm/s) AO Peak GR. 5.50 mmHg AO Mean GR. 2.70 (<5 mmHg) AO VTI 21.4 (18-25 cm) JULIÁN (VTI) 2.53 (2.5-4.5 cm2) Mitral Valve MV A Velocity 39.0 (40-130 cm/s) E/A Ratio 2.41 Tricuspid Valve TR P. Velocity 317.00 cm/s RAP Estimate 10.00 mmHg RVSP 50.20 mmHg Left Ventricle The left ventricle is normal size. Left ventricular systolic function is moderately decreased. There is increased LV wall thickness. There is moderate global hypokinesis. The distal and apical LV gonzales are nearly akinetic. Grade 3 diastolic dysfunction is present. No left ventricle thrombus noted on this study. LVEF is 35-40%. Right Ventricle The right ventricle is mildly dilated. The right ventricular systolic function is normal. Atria Left atrium is mildly dilated. Right atrium is mildly dilated. There is no Doppler evidence of interatrial shunt. Aortic Valve The aortic valve is mildly thickened. There is no aortic valvular stenosis. Trace aortic regurgitation. Mitral Valve The mitral valve leaflets are mildly thickened. No evidence of mitral valve stenosis. Mild to moderate mitral regurgitation. Tricuspid Valve Tricuspid valve is grossly normal in structure and function. Mild tricuspid regurgitation. RVSP is 40-45 mmHg. Pulmonic Valve The pulmonary valve is normal in structure. Mild pulmonic regurgitation. Great Vessels The aortic root is normal in size. The ascending aorta is normal in size. IVC is normal in size and collapses >50% with inspiration. Pericardium There is no pericardial effusion. Other Information Study Quality: Fair Conclusion Moderate reduction in LV systolic function (LVEF 35-40%). Grade 3 diastolic dysfunction. The distal and apical LV gonzales are nearly akinetic. Mild RV dilation with normal RV function. Mild biatrial dilation. Mild to moderate MR. Mild TR. Elevated RVSP 40-45 mmHg. Electronically signed by : Joelle Conroy MD 04/09/2024 22:40:15
[2024-04-03] MEDS: DEFINITY US ECHO CONTRAST 2ML INJ 2 MG IV (14:04)
== END 2024-04-03 23:59 | disposition home or self-care (01) ==
PROVIDERS: PCP Family Medicine; Visit Provider Internal Medicine Pulmonary Disease
DX: I51.7 Cardiomegaly (principal); I34.0 Nonrheumatic mitral (valve) insufficiency; I36.1 Nonrheumatic tricuspid (valve) insufficiency; R06.02 Shortness of breath
CPT/HCPCS: 93306; Q9957

== ENCOUNTER 2024-04-10 10:06 | Outpatient (CLI) | payer MEDICARE, SELFPAY ==
[2024-04-10 10:49] LABS: Basophils % 0.4 % (0.1-2.0); Eosinophils # 0.2 K/mm3 (0.0-0.4); Eosinophils % 2.6 % (0.1-12.0); Hematocrit 42.7 % (42.0-52.0); Hemoglobin 13.9 g/dL (14.1-18.0); Lymphocytes # 2.2 K/mm3 (0.7-4.5); Mean Corpuscular HGB Conc 32.6 g/dL (31.8-35.4); Mean Corpuscular Hemoglobin 29.8 pg (27.0-31.2); Mean Corpuscular Volume 91.6 fl (80-94); Monocytes # 0.6 K/mm3 (0.1-1.0); Monocytes % 7.4 % (1.7-9.3); Neutrophils # 4.5 K/mm3 (1.8-7.8); Neutrophils % 60.3 % (37.0-80.0); Platelet Count 196 K/mm3 (142-424); Red Blood Count 4.66 M/mm3 (4.60-6.20); Red Cell Distribution Width 13.8 % (11.5-17.5); White Blood Count 7.4 K/mm3 (4.8-10.8)
[2024-04-10 11:22] LABS: Albumin Level 3.7 g/dl (3.5-5.0); Chloride 109 mmol/L (98-107); Potassium 4.8 mmoL/L (3.5-5.1); Sodium 140 mmol/L (136-145)
[2024-04-10 11:25] LABS: Alanine Aminotransferase 24 U/L (12-78); Alkaline Phosphatase 93 U/L (38-126); Anion Gap 8.8 mEq/L (5-15); Aspartate Amino Transferase 28 U/L (17-59); Bilirubin,Direct 0.3 mg/dl (0.0-0.4); Bilirubin,Indirect 0.3 mg/dL (0.0-0.9); Bilirubin,Total 0.6 mg/dl (0.2-1.3); Bilirubin,Unconjugated 0.3 mg/dL (0.0-1.1); Blood Urea Nitrogen 14 mg/dl (9-20); Calcium 9.4 mg/dl (8.4-10.2); Carbon Dioxide 27 mmol/L (22.0-30.0); Chol/HDL Ratio 4.7 (1-3.5); Cholesterol 142 mg/dl (140-200); Estimated Glomerular Filt Rate 71 ml/min (>60); GFR (African American) 86 ML/MIN (>60); Glucose 96 mg/dl (74-100); HDL Cholesterol 30 mg/dl (40-60); Iron 78 ug/dL (49-181); Total Protein,Serum 6.4 g/dl (6.3-8.2); Triglycerides 114 mg/dl (30-150); VLDL Cholesterol 23 mg/dL (0-40)
[2024-04-10 11:34] LABS: NT Pro Brain Natriuretic Pep. 3250 pg/mL (0-450)
[2024-04-10 11:38] LABS: Direct LDL Cholesterol 87.16 mg/dL (100-129)
[2024-04-10 11:41] LABS: Free T4 (Free Thyroxine) 1.17 ng/dl (0.78-2.19)
[2024-04-10 11:42] LABS: Total Iron Binding Capacity 258 ug/dL (261-462)
[2024-04-10 12:00] LABS: Ferritin 136 ng/ml (17.9-464)
[2024-04-10 12:05] LABS: Thyroid Stimulating Hormone 3.82 uIU/mL (0.465-4.68)
[2024-04-11 08:14] LABS: Transferrin 181 mg/dL (149-313)
== END 2024-04-10 23:59 | disposition home or self-care (01) ==
LOC: LAB 10:07
PROVIDERS: PCP Family Medicine; Visit Provider Internal Medicine
DX: Z01.810 Encounter for preprocedural cardiovascular examination (principal); R93.1 Abnormal findings on diagnostic imaging of heart and coronary circulation; R94.31 Abnormal electrocardiogram [ECG] [EKG]; I42.8 Other cardiomyopathies; J90 Pleural effusion, not elsewhere classified; R06.09 Other forms of dyspnea; K21.9 Gastro-esophageal reflux disease without esophagitis; I50.9 Heart failure, unspecified; I11.0 Hypertensive heart disease with heart failure; I25.2 Old myocardial infarction
CPT/HCPCS: 36415; 80048; 80061; 80076; 82728; 83540; 83550; 83880; 84439; 84443; 84466; 85025

== ENCOUNTER 2024-04-12 06:41 | Outpatient (CLI) | payer MEDICARE, SELFPAY ==
--- NOTE | 2024-04-12 | CA_ITS ---
APPROVED REPORT Exam: Pharmacologic Technologist: Tanya Alamo Ht: 5 ft 10 in Wt: 187 lbs BSA: 2.03 m2 HR: 58 bpm BP: 135/77 mmHg Stress Test Details Test: Lexiscan HR Resting HR: 58 bpm Max Heart Rate (APMHR): 134.432706 bpm Max HR Achieved: 65 bpm Target HR (85% APMHR): 113.896270 bpm % of APMHR: 48.51 Recovery HR: 54 bpm BP Resting BP: 135.0/77.0 mmHg Max BP: 135.0/77.0 mmHg Recovery BP: 102.0/70.0 mmHg ECG Stress ECG Conclusion Symptoms: Shortness of breath, nausea Arrhythmias/Ectopy: Occasional PVC, PAC ST-T Changes: EKG non-diagnostic - Lexiscan Electronically signed by : Joelle Conroy MD 04/16/2024 15:08:00
--- NOTE | 2024-04-12 06:53 | NM_ITS ---
APPROVED REPORT Exam: Nuclear Stress Test Indication: htn, sob, pre-op Patient Location: Outpatient Stress Tech: Tanya Alamo MT Tech:Shana MoySARITHA RT (R)(N)(M) Ht: 5 ft 7 in Wt: 165 lbs HR: 58 bpm BP: 135/77 mmHg BSA: 1.86 m2 BMI: 25.8 History: htn, sob, pre-op Procedure: Patient received 0.4 mg of intravenous Lexiscan, resting heart rate 58 bpm, resting blood pressure 135/77 mmHg, with Lexiscan maximum heart rate achieved was 74 bpm which is % of the maximum predicted heart rate and blood pressure was 108/58 mmHg. With lexiscan patient's b/p and heart rate dropped and then was progressively unresponsive. Pulse could not be readily detected, a CODE BLUE was called, and the patient urgently transferred to the emergency department and the cardiac Shipyard Helper was activated. Cardiac Stress and Resting SPECT Images: Cardiac Stress and Resting SPECT images were obtained using technetium 99m Myoview 31.5 mCi stress and 10.65 mCi at rest. The patient underwent resting portion of the stress test. Following infusion of Lexiscan, the patient developed progressive bradycardia and hypotension, after which his pulse was undetectable. CODE BLUE was called and he was emergently transferred to the emergency department and the cardiac Shipyard Helper was activated. In this limited study, resting images demonstrate a large sized, severe perfusion defect in the anterior, anteroseptal, and apical LV gonzales. There is also a small sized, severe perfusion defect in the inferior LV wall. Determination of reversibility cannot be made due to inability to to undergo stress testing. Conclusion: The patient underwent resting portion of the stress test. Following infusion of Lexiscan, the patient developed progressive bradycardia and hypotension, after which his pulse was undetectable. CODE BLUE was called and he was emergently transferred to the emergency department and the cardiac Shipyard Helper was activated. In this limited study, resting images demonstrate a large sized, severe perfusion defect in the anterior, anteroseptal, and apical LV gonzales. There is also a small sized, severe perfusion defect in the inferior LV wall. Determination of reversibility cannot be made due to inability to to undergo stress testing. Electronically signed by : Joelle Conroy MD 04/12/2024 12:29:04
[2024-04-12] MEDS: SODIUM CHLORIDE 0.9% 10ML SYR (RAD ONLY) 10 ML IV ×2 (08:45→09:14)
[2024-04-12] MEDS: REGADENOSON 0.4MG/5ML SYRINGE 0.4 MG IV (08:45)
[2024-04-12] MEDS: ISOTOPE MYOVIEW (PER STUDY) 1 DOSE IV (09:14)
== END 2024-04-12 23:59 | disposition home or self-care (01) ==
PROVIDERS: PCP Family Medicine; Visit Provider Internal Medicine
DX: I25.10 Atherosclerotic heart disease of native coronary artery without angina pectoris (principal); R94.31 Abnormal electrocardiogram [ECG] [EKG]
CPT/HCPCS: 78451; 93017; 93018; A9502; J2785

== ENCOUNTER 2024-04-12 09:14 | Inpatient (IN) | payer MEDICARE, SELFPAY ==
[2024-04-12] VITALS (24 sets, daily range): BP systolic 99–142; BP diastolic 49–92; PULSE 44–91; RESP 14–20; TEMP 36.4–36.8; O2SAT 92–100; BMI 26.6
--- NOTE | 2024-04-12 09:09 | ECG_ITS ---
APPROVED REPORT Exam: Resting ECG HR:61 bpm ECG Measurements Heart Rate 61 AXES MO 171 P 37 QRSd 90 QRS 29 QT 433 T 102 QTc 437 Conclusion SINUS RHYTHM ANTEROSEPTAL MYOCARDIAL INFARCTION , PROBABLY RECENT [40+ ms Q WAVE IN V1-V4] Septal anterior ST elevation without reciprocal changes Electronically signed by : EDGARDO BURGER, 04/24/2024 22:18:42
--- NOTE | 2024-04-12 09:19 | IR_ITS ---
APPROVED REPORT Patient Location: Emergent Hvac/R Instructor: SARITHA Duarte RT (R) PROCEDURES Left heart catheterization Left ventriculogram Selective coronary angiogram INDICATION Asystole, Status post cardiac arrest Informed consent was obtained prior to the procedure. COMPLICATIONS NONE Estimated Blood Loss: LESS THAN 10 ML TECHNIQUE One percent lidocaine used to anesthetize the right anterior aspect of the wrist. The right radial artery was accessed via the Seldinger technique. A 6 Guamanian sheath was placed in the right radial artery. 2.5 mg of Verapamil, 800 mcg of nitroglycerin, 1mg Lidocaine and 5000 U Heparin were given through the arterial sheath. The 6 Guamanian JL 3 guide catheter was also used to perform left heart catheterization, left ventriculogram and selective coronary angiogram. At the end of the procedure the sheath was removed good hemostasis was achieved using Traclet band, patient was transferred to the postop holding area in stable condition. 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 Given patient is status post cardiac arrest requiring chest compressions with asystole I would recommend AICD and pacemaker placement this admission 2. 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 Anticoagulation should be considered to reduce embolic event from aneurysmal anterior wall 3. Patient should not undergo elective laminectomy until pacemaker/AICD placement has occurred 4. Standard therapy for systolic heart failure which should include Entresto carvedilol and statin therapy 5. Consider anticoagulation Electronically signed by : Oracio Tolentino MD 04/12/2024 13:11:34
--- NOTE | 2024-04-12 09:20 | PC.NURSE ---
0916 stemi called [phone] agriculture laboratory technician notified [phone] addie from cardiology speaking with dr david
[2024-04-12] MEDS: HEPARIN 1,000 UNITS/500ML NS (CATH LAB) 3000 UNIT IV (09:23)
[2024-04-12] MEDS: LIDOCAINE 1% 10ML MDV 20 ML IJ (09:23)
[2024-04-12] MEDS: VERAPAMIL 2.5MG/ML 2ML VIAL 2.5 MG IV (09:23)
[2024-04-12] MEDS: 0.9 % SODIUM CHLORIDE 500 ML 25 ML IV (09:24)
[2024-04-12] MEDS: HEPARIN 1,000 UNITS/ML 10ML VIAL (CATH LAB) 10000 UNIT IV (09:24)
--- NOTE | 2024-04-12 09:25 | HMH.EDGENADL ---
Discharge Plan Disposition Chief Complaint: Syncope Prescriptions Prescriptions: No Action losartan 100 mg tablet 100 mg PO Patient Comments: TAKE 1 TABLET BY MOUTH ONCE DAILY polyethylene glycol 3350 [ClearLax] 17 gram/dose powder 17 g PO DAILY cholecalciferol (vitamin D3) 25 mcg (1,000 unit) capsule 25 mcg PO DAILY B-complex with vitamin C Tablet 1 tab PO DAILY metoprolol succinate [Toprol XL] 25 mg tablet extended release 24 hr 25 mg PO DAILY Qty: 30 5RF furosemide [Lasix] 20 mg tablet 20 mg PO DAILY Qty: 5 0RF Instructions Patient Instructions: DI for Syncope in Adults (Fainting), DI for Syncope in Children (Fainting) Print Language Print Language: [place] Discharge ED Provider: José Manuel Swain General Adult HPI General Chief complaint: Syncope Stated complaint: syncope Time Seen by Provider: 04/12/24 09:23 Mode of Arrival: Wheelchair Source of Information: Patient Limitations: No Limitations Description of Symptoms (Recalled from ER Triage Doc. by RN): Patient was doing a stress test when his heart rate dropped to 39 and his blood pressure dropped. Brought to the er for further evaluation. Related Data Home Medications ?Medication ?Instructions ?Recorded ?Confirmed losartan 100 mg tablet 100 mg PO 02/15/24 04/10/24 polyethylene glycol 3350 17 17 g PO DAILY 02/15/24 04/10/24 gram/dose oral powder (ClearLax) B-complex with vitamin C 1 tab PO DAILY 03/30/24 04/10/24 cholecalciferol (vitamin D3) 25 25 mcg PO DAILY 03/30/24 04/10/24 mcg (1,000 unit) capsule Previous Rx's ?Medication ?Instructions ?Recorded metoprolol succinate 25 mg 25 mg PO DAILY #30 tabs 04/10/24 tablet,extended release 24 hr (Toprol XL) furosemide 20 mg tablet (Lasix) 20 mg PO DAILY #5 tabs 04/11/24 Allergies Allergy/AdvReac Type Severity Reaction Status Date / Time No Known Allergies Allergy Verified 04/10/24 14:20 [facility] Disclaimer: The information contained in this section may have been updated after the patient was seen, as this information can be updated by other users. Medical History Dyspnea on exertion Pleural effusion, bilateral Chronic pain HTN (hypertension) Surgical History Surgical history unknown Family History Other Unknown family medical history Social History Smoking Status: Never smoker second hand exposure: No alcohol intake: never current occupational status: other Travel in the last 8 weeks: None household members: spouse housing: house current occupation: [employer] current occupational exposures/hazards: No caffeine: Yes Other Medical History Have you received the Flu Vaccine for this season: Yes Have you received the Pneumonia Vaccine: No Medical Decision Making Medical Records Screening: Per USPSTF and CDC recommendations, given the prevalence of disease in our region, it is our hospital?s policy to screen for HIV and viral Hepatitis for all patients aged 18 and over and those with ongoing risk factors. Vital Signs: 04/12/24 09:14 Temperature 97.9 F Temperature Source Oral Pulse Rate [Radial] 55 L Respiratory Rate 18 Blood Pressure [Right Arm] 126/49 L Blood Pressure Mean [Right Arm] 74 Blood Pressure Source [Right Arm] Automatic Cuff Blood Pressure Position [Right Arm] Sitting 02 Sat by Pulse Oximetry 98 Oxygen Delivery Method Room Air Orders (Tests/Meds): ED MEDICATIONS Generic Name Dose Route Start Last Admin Trade Name Freq PRN Reason Stop Dose Admin Diphenhydramine HCl 50 mg 04/12/24 09:18 Diphenhydramine 50mg/Ml Vial IV 04/12/24 09:19 ONCE ONE Fentanyl Citrate 50 mcg 04/12/24 09:18 Fentanyl 100mcg/2ml Vial IV 04/12/24 21:18 Q3MINP PRN Sedation Fentanyl Citrate 25 mcg 04/12/24 09:18 Fentanyl 100mcg/2ml Vial IV 04/12/24 21:18 Q3MINP PRN Sedation Flumazenil 0.2 mg 04/12/24 09:18 Flumazenil 0.1mg/Ml 5ml Vial IV 04/12/24 21:18 NEEDED PRN Sedation Heparin Sodium (Porcine) 10,000 unit 04/12/24 09:18 04/12/24 09:24 Heparin 1,000 Units/Ml 10ml Vial (Security System Analyst) IV 04/12/24 13:18 5,000 unit NEEDED PRN Administration Emergency Box Professor Of Archaeology Heparin Sodium/Sodium Chloride 3,000 unit 04/12/24 09:18 04/12/24 09:23 Heparin 1,000 Units/500ml Ns (Security System Analyst) IV 04/12/24 09:19 3,000 unit ONCE ONE Administration Hydralazine HCl 20 mg 04/12/24 09:18 Hydralazine 20mg/Ml Vial IV 04/12/24 13:18 ONCE PRN sbp>160 Adenosine 180 mg/ Sodium 90 mls @ 455.587 mls/hr 04/12/24 09:18 Chloride IV 04/12/24 13:18 ONCE PRN fractional flow reserve 180 MCG/KG/MIN Adenosine 90 mg/ Sodium 90 mls @ 911.174 mls/hr 04/12/24 09:18 Chloride IV 04/12/24 13:18 ONCE PRN fractional flow reserve 180 MCG/KG/MIN Sodium Chloride 1,000 mls @ 25 mls/hr 04/12/24 09:30 04/12/24 09:24 Sod Chloride 0.9% 500ml Bag IV 04/13/24 09:18 25 mls/hr .Q25H VIET Administration Labetalol HCl 20 mg 04/12/24 09:18 Labetalol 20mg/4ml Syringe IV 04/12/24 13:18 ONCE PRN sbp>160 Lidocaine HCl 20 ml 04/12/24 09:18 04/12/24 09:23 Lidocaine 1% 10ml Mdv IJ 04/12/24 09:19 10 ml ONCE ONE Administration Lidocaine HCl 20 ml 04/12/24 09:18 Lidocaine 1% 5ml Pf Vial IJ 04/12/24 09:19 ONCE ONE Midazolam HCl 1 mg 04/12/24 09:18 Midazolam 2mg/2ml Vial IV 04/12/24 21:18 Q3MINP PRN Sedation Midazolam HCl 1 mg 04/12/24 09:18 Midazolam Hcl 1mg/Ml 5ml Vial IV 04/12/24 21:18 Q3MINP PRN Sedation Naloxone HCl 0.4 mg 04/12/24 09:18 Naloxone 0.4mg/Ml Vial IV 04/12/24 21:18 Q5MINP PRN Decreased Respirations Nitroglycerin 800 mcg 04/12/24 09:18 Nitroglycerin 800mcg/8ml Syr (Security System Analyst) IA 04/12/24 13:18 NEEDED PRN Emergency Box Professor Of Archaeology Protamine Sulfate 50 mg 04/12/24 09:18 Protamine Sulfate 50mg/5ml Vial (Security System Analyst) IV 04/12/24 13:18 ONCE PRN act>200 Verapamil HCl 2.5 mg 04/12/24 09:18 04/12/24 09:23 Verapamil 2.5mg/Ml 2ml Vial IV 04/12/24 09:19 2.5 mg ONCE ONE Administration ORDERS Category Date Time Status CXR --portable [XR chest portable] Stat Exams 04/12/24 09:23 Ordered Basic Metabolic Panel Stat Lab 04/12/24 09:16 Received CBC w/Auto Diff [Complete Blood Count Auto Diff] Stat Lab 04/12/24 09:23 Ordered CMP [Comprehensive Metabolic Panel] Stat Lab 04/12/24 09:23 Ordered Complete Blood Count Auto Diff Stat Lab 04/12/24 09:16 Received HIV Combo Stat Lab 04/12/24 09:16 Received Hepatitis C Ab Qual. W/ RFX Stat Lab 04/12/24 09:16 Received NT Pro Brain Natriuretic Pep. Stat Lab 04/12/24 09:23 Ordered PT INR [Prothrombin Time INR] Stat Lab 04/12/24 09:23 Ordered PTT [Activated Partial Thrombo Time] Stat Lab 04/12/24 09:23 Ordered Trop I [Troponin I] Stat Lab 04/12/24 09:23 Ordered Troponin I Q3H Lab 04/12/24 12:30 Ordered Troponin I Q3H Lab 04/12/24 15:30 Ordered
[2024-04-12] MEDS: diphenhydrAMINE 50MG/ML VIAL 50 MG IV (09:26)
--- NOTE | 2024-04-12 09:26 | ECG_ITS ---
APPROVED REPORT Exam: Resting ECG HR:55 bpm ECG Measurements Heart Rate 55 AXES NJ 173 P 38 QRSd 101 QRS 17 QT 443 T 109 QTc 432 Conclusion SINUS BRADYCARDIA WITH SINUS ARRHYTHMIA SEPTAL MYOCARDIAL INFARCTION , PROBABLY RECENT [40+ ms Q WAVE IN V1/V2] ST elevation in the septal anterior leads Electronically signed by : EDGARDO BURGER, 04/24/2024 22:18:20
--- NOTE | 2024-04-12 09:26 | P.EN_ITS ---
Wiliam: I responded to GE LAZARO in stress lab around 9 AM on 04/12. Patient had received cardiac stress medication, went into bradycardic arrest, received 1 single chest compression and had reportedly lost pulses. Patient regained pulses shortly thereafter consistent with symptomatic bradycardia versus vagal episode. On arrival, patient speaking full sentences, he is pale, but compl aining of right sided shoulder pain. Denies nausea, vomiting, chest pain, or any other concerns at this time. Intubation not required as patient has palpable bounding pulses now. To be transferred to ED for further workup.
[2024-04-12 09:27] LABS: Basophils % 0.4 % (0.1-2.0); Eosinophils # 0.2 K/mm3 (0.0-0.4); Eosinophils % 2.3 % (0.1-12.0); Hematocrit 41.1 % (42.0-52.0); Hemoglobin 13.5 g/dL (14.1-18.0); Lymphocytes # 2.1 K/mm3 (0.7-4.5); Lymphocytes % 24.5 % (10-50); Mean Corpuscular HGB Conc 32.8 g/dL (31.8-35.4); Mean Corpuscular Volume 91.3 fl (80-94); Mean Platelet Volume 10.8 fl (7.4-10.4); Monocytes # 0.5 K/mm3 (0.1-1.0); Monocytes % 6.3 % (1.7-9.3); Neutrophils # 5.7 K/mm3 (1.8-7.8); Neutrophils % 66.1 % (37.0-80.0); Platelet Count 180 K/mm3 (142-424); Red Cell Distribution Width 14.1 % (11.5-17.5); White Blood Count 8.5 K/mm3 (4.8-10.8)
--- NOTE | 2024-04-12 09:27 | HMH.EDGENADL ---
Discharge Plan Disposition Patient Disposition: Admitted Chief Complaint: Syncope Prescriptions Prescriptions: No Action losartan 100 mg tablet 100 mg PO Patient Comments: TAKE 1 TABLET BY MOUTH ONCE DAILY polyethylene glycol 3350 [ClearLax] 17 gram/dose powder 17 g PO DAILY cholecalciferol (vitamin D3) 25 mcg (1,000 unit) capsule 25 mcg PO DAILY B-complex with vitamin C Tablet 1 tab PO DAILY metoprolol succinate [Toprol XL] 25 mg tablet extended release 24 hr 25 mg PO DAILY Qty: 30 5RF furosemide [Lasix] 20 mg tablet 20 mg PO DAILY Qty: 5 0RF Clinical Impressions Clinical Impression: ST elevation PA (STEMI), Bradycardic cardiac arrest, Vagal reaction Instructions Patient Instructions: DI for Syncope in Adults (Fainting), DI for Syncope in Children (Fainting) Print Language Print Language: Maori Discharge ED Provider: José Manuel Swain General Adult HPI General Chief complaint: Syncope Stated complaint: syncope Time Seen by Provider: 04/12/24 09:23 Mode of Arrival: Wheelchair Source of Information: Patient Limitations: No Limitations Description of Symptoms (Recalled from ER Triage Doc. by RN): Patient was doing a stress test when his heart rate dropped to 39 and his blood pressure dropped. Brought to the er for further evaluation. History of Present Illness HPI narrative: Please note that above description of symptoms, in this electronic medical record under categorization of recalled from ER triage doctor by RN are reflective of an initial nursing assessment, however, is not reflective of my full history and physical exam that was personally taken and clarified. Consequentially, this preceding description of symptoms, which may include the patient's categorized chief complaint in the EMR, do not reflect my personal clinical impression, and the ultimate description of history of present illness and patient stated complaints should be deferred to this section of the note. Unless stated otherwise or congruent with this section of the note, additional signs, symptoms, or incongruence should be interpreted as inaccurate with my clinical impression. Related Data Home Medications ?Medication ?Instructions ?Recorded ?Confirmed losartan 100 mg tablet 100 mg PO 02/15/24 04/10/24 polyethylene glycol 3350 17 17 g PO DAILY 02/15/24 04/10/24 gram/dose oral powder (ClearLax) B-complex with vitamin C 1 tab PO DAILY 03/30/24 04/10/24 cholecalciferol (vitamin D3) 25 25 mcg PO DAILY 03/30/24 04/10/24 mcg (1,000 unit) capsule Previous Rx's ?Medication ?Instructions ?Recorded metoprolol succinate 25 mg 25 mg PO DAILY #30 tabs 04/10/24 tablet,extended release 24 hr (Toprol XL) furosemide 20 mg tablet (Lasix) 20 mg PO DAILY #5 tabs 04/11/24 Allergies Allergy/AdvReac Type Severity Reaction Status Date / Time No Known Allergies Allergy Verified 04/10/24 14:20 [facility] Disclaimer: The information contained in this section may have been updated after the patient was seen, as this information can be updated by other users. 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 current occupational exposures/hazards: No caffeine: Yes Other Medical History Have you received the Flu Vaccine for this season: Yes Have you received the Pneumonia Vaccine: No ROS Obtained: Yes All systems reviewed & no additional complaints except as documented Physical Exam General General appearance: alert Head Head exam: atraumatic and normocephalic Eye Eye exam: Present normal appearance, PERRL and EOMI Neck Neck exam: Present normal inspection, full ROM and trachea midline Respiratory Respiratory exam: Present normal lung sounds bilaterally; Absent respiratory distress, wheezes, stridor, accessory muscle use or prolonged expiratory phase Cardiovascular Cardiovascular exam: Present regular rate, normal rhythm and other (Pulses equal symmetric in upper and lower extremities) Abdominal Exam Abdominal exam: Present soft; Absent distention, tenderness or pulsatile mass Extremities Exam Extremities exam: Absent edema Neurological Exam Neurological exam: Present alert, oriented X3 and CN II-XII intact; Absent motor sensory deficit Skin Skin exam: Present warm and dry; Absent diaphoresis or erythema Medical Decision Making Medical Records Medical records reviewed: Yes I reviewed the patient's medical records. Screening: Per USPSTF and CDC recommendations, given the prevalence of disease in our region, it is our hospital?s policy to screen for HIV and viral Hepatitis for all patients aged 18 and over and those with ongoing risk factors. Marlon Inquiry Pt receiving controlled substance: No Marlon was queried for this patient: No Vital Signs: 04/12/24 09:14 Temperature 97.9 F Temperature Source Oral Pulse Rate [Radial] 55 L Respiratory Rate 18 Blood Pressure [Right Arm] 126/49 L Blood Pressure Mean [Right Arm] 74 Blood Pressure Source [Right Arm] Automatic Cuff Blood Pressure Position [Right Arm] Sitting 02 Sat by Pulse Oximetry 98 Oxygen Delivery Method Room Air Orders (Tests/Meds): ED MEDICATIONS Generic Name Dose Route Start Last Admin Trade Name Freq PRN Reason Stop Dose Admin Fentanyl Citrate 50 mcg 04/12/24 09:18 Fentanyl 100mcg/2ml Vial IV 04/12/24 21:18 Q3MINP PRN Sedation Fentanyl Citrate 25 mcg 04/12/24 09:18 Fentanyl 100mcg/2ml Vial IV 04/12/24 21:18 Q3MINP PRN Sedation Flumazenil 0.2 mg 04/12/24 09:18 Flumazenil 0.1mg/Ml 5ml Vial IV 04/12/24 21:18 NEEDED PRN Sedation Heparin Sodium (Porcine) 10,000 unit 04/12/24 09:18 04/12/24 09:24 Heparin 1,000 Units/Ml 10ml Vial (Rn Disease Management) IV 04/12/24 13:18 5,000 unit NEEDED PRN Administration Emergency Box Director Of Accounts Receivable Hydralazine HCl 20 mg 04/12/24 09:18 Hydralazine 20mg/Ml Vial IV 04/12/24 13:18 ONCE PRN sbp>160 Adenosine 180 mg/ Sodium 90 mls @ 455.587 mls/hr 04/12/24 09:18 Chloride IV 04/12/24 13:18 ONCE PRN fractional flow reserve 180 MCG/KG/MIN Adenosine 90 mg/ Sodium 90 mls @ 911.174 mls/hr 04/12/24 09:18 Chloride IV 04/12/24 13:18 ONCE PRN fractional flow reserve 180 MCG/KG/MIN Sodium Chloride 1,000 mls @ 25 mls/hr 04/12/24 09:30 04/12/24 09:24 Sod Chloride 0.9% 500ml Bag IV 04/13/24 09:18 25 mls/hr .Q25H VIET Administration Labetalol HCl 20 mg 04/12/24 09:18 Labetalol 20mg/4ml Syringe IV 04/12/24 13:18 ONCE PRN sbp>160 Midazolam HCl 1 mg 04/12/24 09:18 Midazolam 2mg/2ml Vial IV 04/12/24 21:18 Q3MINP PRN Sedation Midazolam HCl 1 mg 04/12/24 09:18 Midazolam Hcl 1mg/Ml 5ml Vial IV 04/12/24 21:18 Q3MINP PRN Sedation Naloxone HCl 0.4 mg 04/12/24 09:18 Naloxone 0.4mg/Ml Vial IV 04/12/24 21:18 Q5MINP PRN Decreased Respirations Nitroglycerin 800 mcg 04/12/24 09:18 Nitroglycerin 800mcg/8ml Syr (Rn Disease Management) IA 04/12/24 13:18 NEEDED PRN Emergency Box Director Of Accounts Receivable Protamine Sulfate 50 mg 04/12/24 09:18 Protamine Sulfate 50mg/5ml Vial (Rn Disease Management) IV 04/12/24 13:18 ONCE PRN act>200 Discontinued Medications Generic Name Dose Route Start Last Admin Trade Name Freq PRN Reason Stop Dose Admin Aspirin 324 mg 04/12/24 09:23 Aspirin 81mg Chewable Tablet PO 04/12/24 09:24 ONCE ONE Clopidogrel Bisulfate 300 mg 04/12/24 09:23 Clopidogrel 300mg Tablet PO 04/12/24 09:24 ONCE ONE Diphenhydramine HCl 50 mg 04/12/24 09:18 04/12/24 09:26 Diphenhydramine 50mg/Ml Vial IV 04/12/24 09:19 50 mg ONCE ONE Administration Heparin Sodium (Porcine) 5,000 unit 04/12/24 09:23 Heparin Sodium 5,000 Unit/Ml Vial IV 04/12/24 09:24 ONCE ONE Heparin Sodium/Sodium Chloride 3,000 unit 04/12/24 09:18 04/12/24 09:23 Heparin 1,000 Units/500ml Ns (Rn Disease Management) IV 04/12/24 09:19 3,000 unit ONCE ONE Administration Lidocaine HCl 20 ml 04/12/24 09:18 04/12/24 09:23 Lidocaine 1% 10ml Mdv IJ 04/12/24 09:19 10 ml ONCE ONE Administration Lidocaine HCl 20 ml 04/12/24 09:18 Lidocaine 1% 5ml Pf Vial IJ 04/12/24 09:19 ONCE ONE Verapamil HCl 2.5 mg 04/12/24 09:18 04/12/24 09:23 Verapamil 2.5mg/Ml 2ml Vial IV 04/12/24 09:19 2.5 mg ONCE ONE Administration ORDERS Category Date Time Status CXR --portable [XR chest portable] Stat Exams 04/12/24 09:23 Ordered Basic Metabolic Panel Stat Lab 04/12/24 09:16 Received CBC w/Auto Diff [Complete Blood Count Auto Diff] Stat Lab 04/12/24 09:23 Ordered CMP [Comprehensive Metabolic Panel] Stat Lab 04/12/24 09:23 Ordered Complete Blood Count Auto Diff Stat Lab 04/12/24 09:16 Received HIV Combo Stat Lab 04/12/24 09:16 Received Hepatitis C Ab Qual. W/ RFX Stat Lab 04/12/24 09:16 Received NT Pro Brain Natriuretic Pep. Stat Lab 04/12/24 09:23 Ordered PT INR [Prothrombin Time INR] Stat Lab 04/12/24 09:23 Ordered PTT [Activated Partial Thrombo Time] Stat Lab 04/12/24 09:23 Ordered Trop I [Troponin I] Stat Lab 04/12/24 09:23 Ordered Troponin I Q3H Lab 04/12/24 12:30 Ordered Troponin I Q3H Lab 04/12/24 15:30 Ordered Medical Decision Narrative: 88-year-old male with history of hypertension, hyperlipidemia, CHF presenting with concern for bradycardic arrest versus vagal episode during cardiac stress testing. I responded to CODE BLUE event that was called in the stress lab just prior to this visit. See significant event note. Upon arrival down in the emergency department. Patient states that he received the medication, felt unwell, but denies having any chest pain. States that he went [place], then does not remember anything than having severe right shoulder pain. He also states that he was having shortness of breath. No nausea, vomiting. Cardiology provider up in the stress lab states that patient lost pulses, did 1 chest compression prior to patient regaining pulses and being intolerant of any further compressions. During this time, had nondiagnostic changes on his leads, reportedly. Patient states that he is having right-sided shoulder pain, but still denies chest pain or any other symptoms. History obtained the patient and cardiology provider. On arrival, patient in no acute distress. Glucose in the mid 100s. Placed on continuous monitoring with BP 126/49, pulse 55, O2 sat 98% on room air. Lungs are clear, cardiac exam without murmurs gallops or rubs. Speaking in full sentences. Alert and oriented. EKG was obtained, patient has ST elevations in V2 and V3 with no reciprocal change, however there are T wave inversions in 1 and aVL. Q waves as well in anteroseptal leads. This is consistent with new, acute PA, or potentially old PA with cardiac aneurysm. After reviewing leads and rhythm strips Juany stress, during stress, after stress, patient does have dynamic ST elevations in anteroseptal leads consistent with ischemia. Patient was loaded with aspirin and Plavix, heparin bolus and drip were initially. Allergy was contacted and patient to be brought to the catheterization lab for further definitive workup and management likely stenting. Electroencephalograph Technologist disclaimer Much of this encounter note is an electronic parts processor spoken language to printed text. Electronic parts processor of the spoken language may permit errors. Although I have reviewed the note, some errors may still exist. Critical Care Critical Care Time Critical Care Time: Yes (cardiac) Attestation: On 04/12/24, the high probability of a clinically significant, sudden or life threatening deterioration of the following system(s) required my full and direct attention, intervention and personal management. The time I documented below is in addition to time spent performing reported procedures but includes the following listed in this critical care notation. Total Time Total Critical Care Time: 35
--- NOTE | 2024-04-12 09:32 | PC.NURSE ---
dr patel speaking with dr nowak
[2024-04-12 09:37] LABS: Alanine Aminotransferase 21 U/L (12-78); Albumin Level 3.7 g/dl (3.5-5.0); Albumin/Globulin Ratio 1.3 (1.1-1.8); Alkaline Phosphatase 95 U/L (38-126); Aspartate Amino Transferase 28 U/L (17-59); Blood Urea Nitrogen 15 mg/dl (9-20); Calcium 8.6 mg/dl (8.4-10.2); Carbon Dioxide 24 mmol/L (22.0-30.0); Chloride 109 mmol/L (98-107); Creatinine Clearance Estimated 63 mL/min (50-200); Estimated Glomerular Filt Rate 71 ml/min (>60); GFR (African American) 86 ML/MIN (>60); Globulin 2.8 g/dL (1.3-3.2); Glucose 113 mg/dl (74-100); Sodium 139 mmol/L (136-145); Total Protein,Serum 6.5 g/dl (6.3-8.2)
[2024-04-12 09:40] LABS: Activated Partial Thrombo Time 26.9 seconds (22.8-30.6); INR 1.09 (0.9-1.1); Prothrombin Time 12.1 seconds (10.1-12.5)
[2024-04-12 09:45] LABS: Anion Gap 9.9 mEq/L (5-15); Potassium 3.9 mmoL/L (3.5-5.1)
[2024-04-12 09:48] LABS: NT Pro Brain Natriuretic Pep. 4070 pg/mL (0-450); Troponin I 0.03 ng/ml (0.00-0.034)
[2024-04-12] MEDS: MIDAZOLAM HCL 1MG/ML 5ML VIAL 1 MG IV (10:13)
[2024-04-12] MEDS: FENTANYL 100MCG/2ML VIAL 50 MCG IV (10:13)
--- NOTE | 2024-04-12 10:17 | PC.NURSE ---
ENERGY SYSTEMS LABORATORY DIRECTOR NOTIFIED OF ADMISSION
--- NOTE | 2024-04-12 10:48 | PC.NURSE ---
arrived by kiner from labor gang supervisor
--- NOTE | 2024-04-12 10:58 | CA_ITS ---
APPROVED REPORT EXAM: Limited 2D Echocardiogram with contrast Keeper Helper: Akosua Hare RT(R) Ht: 5 ft 10 in Wt: 186lbs BSA: 2.02 BP: 115/68 mmHg Indications: limited EF check, bradycardia post stress test, HTN, hyperlipidemia, CHF, CM, EF 35-40% on echo 04/03/24. Echo Enhancing Agent Indication: Endocardial border delineation Agent(s) / Amount(s) Used: Definity 2 cc 2D Dimensions EF AP4 27.90 % GL Strain -8.3 % M-Mode Dimensions RVDd 1.82 cm (0.9-2.6) LVDd 6.17 cm (3.5-5.7) LVDs 5.21 cm (3.5-5.7) IVSd 0.75 cm (0.6-1.1) PWd 0.89 cm (0.6-1.1) EF (Teich) 32.20% FS 15.60% EDV (Teich) 191.90 mL ESV (Teich) 130.10 mL Other Information Study Quality: Fair Conclusion This is a limited TTE to wait for LV systolic function and evaluate for LV thrombus in the setting of apical akinesis. Limited windows were obtained. The left ventricle is dilated. There is increased LV wall thickness. There is severe global hypokinesis present. The distal and apical LV gonzales are akinetic. 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 There is no evidence of LV thrombus following administration of ultrasound enhancing agent. Electronically signed by : Joelle Conroy MD 04/12/2024 12:19:48
--- NOTE | 2024-04-12 10:59 | P.CONCA_ITS ---
History of Present Illness History of Present Illness Consult date: 04/12/24 Requesting physician: Joel Mac Consult reason: hypotension Chief complaint: bradycardic arrest History of present illness: This is an 88-year-old white male with past medical history of spinal canal stenosis and bilateral pleural effusions who presented to stress lab this morning for outpatient stress testing secondary to a new onset cardiomyopathy discovered during preoperative planning for a laminectomy for his spinal canal stenosis. During recovery phase of stress testing patient developed hypotension and went into brief period of bradycardic arrest. Prior to chest compressions being started patient became responsive again with heart rate and blood pressure both improving. Patient became fully alert and oriented x 3 with only complaint being right shoulder pain. Initial fingerstick 115. Pre-procedure EKG and old EKG reviewed which showed ST elevation in V2 and V3 with old Q waves present. The ST elevation become more pronounced in V2-V4 during the recovery phase of the Laura stress and returned to baseline on post event EKG. 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 Patient will be admitted to the hospital for further management for CAD and heart failure reduced ejection fraction. Labs as follow: WBC 8.5, hemoglobin 13.5, sodium 139, potassium 3.9, creatinine 1, proBNP 4070, troponin 0.03. Repeat limited echo is pending. [facility] Disclaimer: The information contained in this section may have been updated after the patient was seen, as this information can be updated by other users. Medical History Dyspnea on exertion Pleural effusion, bilateral Chronic pain HTN (hypertension) Surgical History Surgical history unknown Family History Other Unknown family medical history Social History Smoking Status: Never smoker second hand exposure: No alcohol intake: never current occupational status: other Travel in the last 8 weeks: None household members: spouse housing: house current occupation: [employer] current occupational exposures/hazards: No caffeine: Yes Have you lived/traveled outside US in past 30 days?: No Contact w/someone who lives/traveled outside US past 30 days?: No Exposure to someone with infectious disease in past 14 days?: No Do you have a fever (greater than 100.4 F or 38 C)?: No Have you tested positive for COVID-19: No Exposed to someone with COVID-19 in past 14 days?: No Do you have a sore throat?: No Do you have a cough?: No Do you have any weakness?: No Do you have any diarrhea?: No Are you experiencing any unusual bleeding?: No Do you have any muscle aches/pain?: No Do you have any abdominal pain?: No Are you experiencing loss of taste or smell?: No Review of Systems Review of Systems Review of systems:: pertinent systems reviewed and negative unless documented below Exam Data for Last 24 hours Vital signs and Labs for Last 24 Hours: Temp Pulse Resp BP Pulse Ox O2 Del Method O2 Flow Rate 97.9 F 53 L 20 99/55 L 92 L Nasal Cannula 2 04/12/24 09:35 04/12/24 10:30 04/12/24 10:30 04/12/24 10:30 04/12/24 10:30 04/12/24 10:30 04/12/24 10:30 Laboratory Results - last 24 hr 04/12/24 09:16: WBC 8.5, RBC 4.50 L, Hgb 13.5 L, Hct 41.1 L, MCV 91.3, MCH 30.0, MCHC 32.8, RDW 14.1, Plt Count 180, MPV 10.8 H, Neut % (Auto) 66.1, Lymph % (Auto) 24.5, [place] % (Auto) 6.3, Eos % (Auto) 2.3, Baso % (Auto) 0.4, Neut # (Auto) 5.7, Lymph # (Auto) 2.1, [place] # (Auto) 0.5, Eos # (Auto) 0.2, Baso # (Auto) 0.0, PT 12.1, INR 1.09, APTT 26.9, Sodium 139, Potassium 3.9, Chloride 109 H, Carbon Dioxide 24, Anion Gap 9.9, BUN 15, Creatinine 1.00, Estimated Creat Clear 63, Estimated GFR 71, Est GFR ( Amer) 86, Glucose 113 H, Calcium 8.6, Total Bilirubin 1.0, AST 28, ALT 21, Alkaline Phosphatase 95, Troponin I 0.03, NT-Pro-B Natriuret Pep 4070 H, Total Protein 6.5, Albumin 3.7, Globulin 2.8, Albumin/Globulin Ratio 1.3 I & O for Last 24 hours: Intake & Output 04/09/24 04/10/24 04/11/24 04/12/24 23:59 23:59 23:59 23:59 Weight 186 lb Constitutional Constitutional: no acute distress *Routine Respiratory Exam Respiratory: Present rhonchi and symmetric chest movement *Routine Cardiovascular Exam Cardiovascular: Present RRR, Normal S1 and Normal S2 *Routine Abdominal Exam Abdominal: Present soft and normoactive bowel sounds; Absent tenderness *Routine Extremities Exam Extremities: Present full ROM and normal capillary refill; Absent edema *Routine Skin Exam Skin: Present intact, dry and warm Detailed Neck Exam: Thyroids Thyroid: Absent bruit Meds Home Medications and Allergies Home Medications ?Medication ?Instructions ?Recorded ?Confirmed ?Type losartan 100 mg tablet 100 mg PO DAILY 02/15/24 04/12/24 History polyethylene glycol 3350 17 17 g PO DAILY 02/15/24 04/12/24 History gram/dose oral powder (ClearLax) B-complex with vitamin C 1 tab PO DAILY 03/30/24 04/12/24 History cholecalciferol (vitamin D3) 25 25 mcg PO DAILY 03/30/24 04/12/24 History mcg (1,000 unit) capsule metoprolol succinate 25 mg 25 mg PO DAILY #30 tabs 04/10/24 04/12/24 Rx tablet,extended release 24 hr (Toprol XL) furosemide 20 mg tablet (Lasix) 20 mg PO DAILY #5 tabs 04/11/24 04/12/24 Rx New Prescriptions to Start Prescriptions: Allergies Allergy/AdvReac Type Severity Reaction Status Date / Time No Known Allergies Allergy Verified 04/10/24 14:20 Assessment and Plan *Assessment and plan (1) Elevated brain natriuretic peptide (BNP) level: Status: Acute Category: Medical Code(s): R79.89 - Other specified abnormal findings of blood chemistry (2) CAD (coronary artery disease): Status: Acute Category: Medical Code(s): I25.10 - Atherosclerotic heart disease of [place] coronary artery without angina pectoris (3) Heart failure with reduced ejection fraction: Status: Acute Category: Medical Code(s): I50.20 - Unspecified systolic (congestive) heart failure (4) Pleural effusion, bilateral: Status: Acute Category: Medical Code(s): J90 - Pleural effusion, not elsewhere classified (5) Bradycardic cardiac arrest: Status: Acute Category: Medical Code(s): R00.1 - Bradycardia, unspecified; I46.2 - Cardiac arrest due to underlying cardiac condition Plan Coronary artery disease Chronically occluded LAD Anterior aneurysm Status post brief bradycardiac arrest Left heart cath 04/12/2024: 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 Official Patient Centered Care Specialist report ending LDL goal < 55, LDL is 87 Start aspirin 81 mg p.o. daily and atorvastatin 40 mg p.o. daily Acute HFrEF- EF 25% Recent bilateral pleural effusion noted on abdomen pelvis CT scan 03/23/2020 BNP 4070 Chest x-ray pending Echo 04/03/2024 shows moderate reduced LV systolic function of 35 to 40%, grade 3 diastolic dysfunction, the distal and apical LV gonzales are nearly akinetic, mild RV dilation with normal RV function, mild biatrial dilation with mild to moderate MR and mild TR. RVSP 40-45. Repeat limited echo with contrast today shows the left ventricle is dilated, increased LV wall thickness, severe global hypokinesis. Distal and apical LV gonzales akinetic. Medium size apical aneurysm is present, EF 25%. No evidence of LV thrombus. Hold losartan and beta-alexandrea due to bradycardia and hypotension Start Lasix 40 mg IV daily for volume overload Patient needs lifevest placement prior to DC home. CV summary 04/12/2024: Status post left heart catheterization which shows an anterior aneurysm and chronically occluded LAD. Repeat limited echo shows no LV thrombus and an EF of 25%. Hold losartan and beta-alexandrea today due to hypotens ion and bradycardia. Give Lasix 40 mg IV x 1 for volume overload. Will need lifevest placement prior to dc. Anticipate DC home tomorrow morning. CV meds: Aspirin 81 mg p.o. daily Atorvastatin 40 mg p.o. daily Lasix 40 mg IV daily Losartan-hold Metoprolol-hold
[2024-04-12 12:11] LABS: HIV Combo NEGATIVE (Negative)
[2024-04-12] MEDS: DEFINITY US ECHO CONTRAST 2ML INJ 2 MG IV (12:14)
[2024-04-12 12:18] LABS: Hepatitis C Ab Qual. W/ RFX NEGATIVE (Negative)
--- NOTE | 2024-04-12 12:28 | HMH.PHAINT1 ---
Pharmacy Intervention Comments: VERIFIED MEDICATIONS WITH OUTPATIENT PHARMACY. CONFIRMED MEDICATIONS WITH PATIENT.
--- NOTE | 2024-04-12 12:44 | XR_ITS ---
FINAL REPORT CLINICAL HISTORY: leila arrest, volume overload COMPARISON: 09/27/2023 FINDINGS: There is a retrocardiac density in the left lung base, probably due to atelectasis and pleural effusion. The right lung is clear. There is no pneumothorax. Mediastinum is unremarkable. Heart size is normal. IMPRESSION: Left basilar density, suspect pleural effusion with atelectasis. Reviewed, Interpreted and Dictated by Manish Eli MD Transcribed by Danna Herrera Authenticated and [facility]
[2024-04-12 13:15] LABS: Chloride 109 mmol/L (98-107); Sodium 137 mmol/L (136-145)
[2024-04-12 13:16] LABS: Potassium 3.9 mmoL/L (3.5-5.1)
[2024-04-12 13:18] LABS: Blood Urea Nitrogen 14 mg/dl (9-20); Creatinine Clearance Estimated 63 mL/min (50-200); Estimated Glomerular Filt Rate 80 ml/min (>60); GFR (African American) 97 ML/MIN (>60)
[2024-04-12 13:19] LABS: Anion Gap 9.9 mEq/L (5-15); Calcium 8.7 mg/dl (8.4-10.2); Carbon Dioxide 22 mmol/L (22.0-30.0); Glucose 90 mg/dl (74-100)
[2024-04-12] MEDS: FUROSEMIDE 40MG/4ML VIAL 40 MG IV (13:27)
[2024-04-12 13:31] LABS: Troponin I 0.03 ng/ml (0.00-0.034)
--- NOTE | 2024-04-12 13:52 | PC.WOUNDNOTE ---
Non adherent applied to right wrist with tegaderm.
--- NOTE | 2024-04-12 14:40 | P.HP_ITS ---
History of Present Illness *Admission Date: 04/12/24 *History of present illness: This is an 88-year-old white male with past medical history of spinal canal stenosis and bilateral pleural effusions who presented to stress lab this morning for outpatient stress testing secondary to a new onset cardiomyopathy discovered during preoperative planning for a laminectomy for his spinal canal stenosis. During recovery phase of stress testing patient developed hypotension and went into brief period of bradycardic arrest. Prior to chest compressions being started patient became responsive again with heart rate and blood pressure both improving. Patient became fully alert and oriented x 3 with only complaint being right shoulder pain. Initial fingerstick 115. Pre-procedure EKG and old EKG reviewed which showed ST elevation in V2 and V3 with old Q waves present. The ST elevation become more pronounced in V2-V4 during the recovery phase of the Laura stress and returned to baseline on post event EKG. 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 Patient will be admitted to the hospital for further management for CAD and heart failure reduced ejection fraction. Labs as follow: WBC 8.5, hemoglobin 13.5, sodium 139, potassium 3.9, creatinine 1, proBNP 4070, troponin 0.03. Repeat limited echo is pending. (above as per cardiology) [facility] Disclaimer: The information contained in this section may have been updated after the cleo ent was seen, as this information can be updated by other users. Medical History (Updated 04/12/24 @ 11:21 by Shawna Vieira APRN) Dyspnea on exertion Pleural effusion, bilateral Chronic pain HTN (hypertension) Surgical History (Updated 04/12/24 @ 15:11 by CONNOR Shahid) History of left cataract surgery History of cholecystectomy Family History Other Unknown family medical history Social History Smoking Status: Never smoker second hand exposure: No alcohol intake: never current occupational status: other Travel in the last 8 weeks: None household members: spouse housing: house current occupation: [employer] current occupational exposures/hazards: No caffeine: Yes Have you lived/traveled outside US in past 30 days?: No Contact w/someone who lives/traveled outside US past 30 days?: No Exposure to someone with infectious disease in past 14 days?: No Do you have a fever (greater than 100.4 F or 38 C)?: No Have you tested positive for COVID-19: No Exposed to someone with COVID-19 in past 14 days?: No Do you have a sore throat?: No Do you have a cough?: No Do you have any weakness?: No Do you have any diarrhea?: No Are you experiencing any unusual bleeding?: No Do you have any muscle aches/pain?: No Do you have any abdominal pain?: No Are you experiencing loss of taste or smell?: No Other Medical History Have you received the Flu Vaccine for this season: Yes Have you received the Pneumonia Vaccine: No Review of Systems Constitutional Constitutional: Denies fatigue, Denies headache(s) and Denies weakness Eyes Eyes: Denies blurry vision and Denies diplopia ENT Ears, Nose, Mouth, and Throat: Denies headache(s), Denies nasal congestion, Denies sore throat and Denies vertigo *Cardiovascular Cardiovascular: Denies chest pain, Denies dyspnea and Denies leg edema *Respiratory Respiratory: Denies cough and Denies dyspnea *Gastrointestinal Gastrointestinal: Denies abdominal pain, Denies loose stools, Denies nausea and Denies vomiting *Genitourinary Genitourinary: Denies difficulty urinating and Denies dysuria *Musculoskeletal Musculoskeletal: Denies arthralgias and Denies myalgias *Neurologic Neurologic: Denies headache(s), Denies vertigo and Denies weakness Endocrine Endocrine: Denies fatigue Meds Home Medications and Allergies Home Medications ?Medication ?Instructions ?Recorded ?Confirmed ?Type losartan 100 mg tablet 100 mg PO DAILY 02/15/24 04/12/24 History polyethylene glycol 3350 17 17 g PO DAILY 02/15/24 04/12/24 History gram/dose oral powder (ClearLax) B-complex with vitamin C 1 tab PO DAILY 03/30/24 04/12/24 History cholecalciferol (vitamin D3) 25 25 mcg PO DAILY 03/30/24 04/12/24 History mcg (1,000 unit) capsule metoprolol succinate 25 mg 25 mg PO DAILY #30 tabs 04/10/24 04/12/24 Rx tablet,extended release 24 hr (Toprol XL) furosemide 20 mg tablet (Lasix) 20 mg PO DAILY #5 tabs 04/11/24 04/12/24 Rx New Prescriptions to Start Prescriptions: Allergies Allergy/AdvReac Type Severity Reaction Status Date / Time No Known Allergies Allergy Verified 04/10/24 14:20 Exam Data for Last 24 hours Vital signs and Labs for Last 24 Hours: Temp Pulse Resp BP Pulse Ox O2 Del Method O2 Flow Rate 97.6 F 66 17 127/75 99 Room Air 2 04/12/24 13:30 04/12/24 13:30 04/12/24 13:30 04/12/24 13:30 04/12/24 13:30 04/12/24 13:30 04/12/24 10:30 Laboratory Results - last 24 hr 04/12/24 09:16: WBC 8.5, RBC 4.50 L, Hgb 13.5 L, Hct 41.1 L, MCV 91.3, MCH 30.0, MCHC 32.8, RDW 14.1, Plt Count 180, MPV 10.8 H, Neut % (Auto) 66.1, Lymph % (Auto) 24.5, [place] % (Auto) 6.3, Eos % (Auto) 2.3, Baso % (Auto) 0.4, Neut # (Auto) 5.7, Lymph # (Auto) 2.1, [place] # (Auto) 0.5, Eos # (Auto) 0.2, Baso # (Auto) 0.0, PT 12.1, INR 1.09, APTT 26.9, Sodium 139, Potassium 3.9, Chloride 109 H, Carbon Dioxide 24, Anion Gap 9.9, BUN 15, Creatinine 1.00, Estimated Creat Clear 63, Estimated GFR 71, Est GFR ( Amer) 86, Glucose 113 H, Calcium 8.6, Total Bilirubin 1.0, AST 28, ALT 21, Alkaline Phosphatase 95, Troponin I 0.03, NT-Pro-B Natriuret Pep 4070 H, Total Protein 6.5, Albumin 3.7, Globulin 2.8, Albumin/Globulin Ratio 1.3, HCV Ab AMAN w/Rflx PCR Qn Negative, HIV Ag/Ab Combo Qual Negative 04/12/24 12:50: Sodium 137, Potassium 3.9, Chloride 109 H, Carbon Dioxide 22, Anion Gap 9.9, BUN 14, Creatinine 0.90, Estimated Creat Clear 63, Estimated GFR 80, Est GFR ( Amer) 97, Glucose 90 D, Calcium 8.7, Troponin I 0.03 I & O for Last 24 hours: Intake & Output 04/10/24 04/11/24 04/12/24 04/13/24 11:59 11:59 11:59 11:59 Weight 186 lb Constitutional Constitutional: no acute distress *Routine HEENT Exam Head: Present normocephalic and atraumatic Eye: Present EOMI and PERRL ENT: Present mucous membranes moist *Routine Neck Exam Neck: Present supple and full ROM *Routine Respiratory Exam Respiratory: Present CTA bilaterally *Routine Cardiovascular Exam Cardiovascular: Present RRR *Routine Abdominal Exam Abdominal: Present soft and normoactive bowel sounds; Absent tenderness *Routine Rectal Exam Rectal:: deferred *Routine Genitalia Exam Genitalia:: deferred *Routine Extremities Exam Extremities: Absent cyanosis, clubbing or edema *Routine Skin Exam Skin: Present intact; Absent erythema *Routine Neurological Exam Neurological: Present alert and oriented X3 H&P: Result Impressions Cardiac Cath IMPRESSION Chronically occluded LAD without collateralization accompanied by large akinetic aneurysmal wall as described above Normal LVEDP PLAN 1. Given patient is status post cardiac arrest requiring chest compressions with asystole I would recommend AICD and pacemaker placement this admission 2. 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 Anticoagulation should be considered to reduce embolic event from aneurysmal anterior wall 3. Patient should not undergo elective laminectomy until pacemaker/AICD placement has occurred 4. Standard therapy for systolic heart failure which should include Entresto carvedilol and statin therapy 5. Consider anticoagulation Echo This is a limited TTE to wait for LV systolic function and evaluate for LV thrombus in the setting of apical akinesis. Limited windows were obtained. The left ventricle is dilated. There is increased LV wall thickness. There is severe global hypokinesis present. The distal and apical LV gonzales are akinetic. 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 There is no evidence of LV thrombus following administration of ultrasound enhancing agent. Assessment and Plan *Assessment and plan (1) Bradycardic cardiac arrest: Status: Acute Category: Medical Code(s): R00.1 - Bradycardia, unspecified; I46.2 - Cardiac arrest due to underlying cardiac condition (2) Elevated brain natriuretic peptide (BNP) level: Status: Acute Category: Medical Code(s): R79.89 - Other specified abnormal findings of blood chemistry (3) CAD (coronary artery disease): Status: Acute Category: Medical Code(s): I25.10 - Atherosclerotic heart disease of [place] coronary artery without angina pectoris (4) Heart failure with reduced ejection fraction: Status: Acute Category: Medical Code(s): I50.20 - Unspecified systolic (congestive) heart failure (5) Pleural effusion, bilateral: Status: Acute Category: Medical Code(s): J90 - Pleural effusion, not elsewhere classified Plan Cardiology has started the patient on aspirin 81 mg p.o. daily and atorvastatin 40 mg p.o. daily. They want to hold losartan and beta-alexandrea due to bradycardia and hypotension and start Lasix 40 mg IV daily for volume overload. Patient will need a lifevest before discharge home. Dr. Avalos entry - Saw patient, agree with above note.
[2024-04-12] MEDS: IOPAMIDOL-370 (76%);100ML BOTTLE 50 ML IV (14:58)
[2024-04-12 16:11] LABS: Troponin I 0.03 ng/ml (0.00-0.034)
[2024-04-13] VITALS: BP 122/67; PULSE 70; RESP 16; TEMP 36.8; O2SAT 94
[2024-04-13 04:00] VITALS: BP 115/65; PULSE 55; PULSE 69; RESP 17; TEMP 36.4; O2SAT 96; BMI 25.9
[2024-04-13 07:51] VITALS: BP 112/69; PULSE 66; RESP 18; TEMP 36.6; O2SAT 95
[2024-04-13 08:00] VITALS: PULSE 70
--- NOTE | 2024-04-13 08:06 | P.PN_ITS ---
Subjective *Date: 04/13/24 *Time: 09:04 Interval history: Patient is feeling well this am. He denies any CP or SOA. He did urinate quite a bit after taking lasix yesterday. He slept decently and ate breakfast. Awaiting lifevest and discharge this am. Medical Exam Vital signs and Labs for Last 24 Hours: Vital Signs Temp Pulse Pulse Resp BP BP Pulse Ox 04/13/24 07:51 97.8 F 66 18 112/69 95 04/13/24 06:42 04/13/24 05:00 04/13/24 04:00 97.6 F 69 17 115/65 96 04/13/24 04:00 55 L 04/13/24 03:00 04/13/24 00:48 04/13/24 00:00 70 04/13/24 00:00 98.3 F 70 16 122/67 94 L 04/12/24 22:57 04/12/24 21:00 04/12/24 20:00 60 04/12/24 20:00 04/12/24 19:57 98.1 F 61 16 136/86 98 04/12/24 18:08 04/12/24 17:30 98.0 F 75 18 142/80 H 100 04/12/24 16:30 97.6 F 74 18 136/78 100 04/12/24 16:10 04/12/24 16:00 98.2 F 91 H 18 130/69 96 04/12/24 16:00 70 04/12/24 15:30 97.6 F 65 18 138/76 100 04/12/24 14:55 04/12/24 14:48 04/12/24 14:30 97.6 F 73 17 140/92 H 100 04/12/24 13:30 97.6 F 66 17 127/75 99 04/12/24 13:00 97.6 F 61 17 119/69 99 04/12/24 12:38 04/12/24 12:30 97.6 F 50 L 17 133/75 100 04/12/24 12:00 50 L 04/12/24 12:00 97.6 F 46 L 17 110/72 100 04/12/24 11:30 97.6 F 58 L 17 115/68 99 04/12/24 11:15 97.6 F 48 L 17 131/69 97 04/12/24 11:00 97.6 F 44 L 18 117/63 100 04/12/24 11:00 04/12/24 10:57 60 04/12/24 10:45 97.6 F 49 L 18 114/66 98 04/12/24 10:30 53 L 20 99/55 L 92 L 04/12/24 10:25 62 18 100/56 L 92 L 04/12/24 10:20 57 L 18 108/60 L 92 L 04/12/24 10:15 56 L 57 L 20 114/67 92 L 04/12/24 09:35 97.9 F 55 L 18 126/49 L 04/12/24 09:21 63 14 124/76 97 04/12/24 09:18 63 17 98 04/12/24 09:14 97.9 F 55 L 18 126/49 L 98 O2 Del Method O2 Flow Rate 04/13/24 07:51 Room Air 04/13/24 06:42 Room Air 04/13/24 05:00 Room Air 04/13/24 04:00 Room Air 04/13/24 04:00 04/13/24 03:00 Room Air 04/13/24 00:48 Room Air 04/13/24 00:00 04/13/24 00:00 Room Air 04/12/24 22:57 Room Air 04/12/24 21:00 Room Air 04/12/24 20:00 04/12/24 20:00 Room Air 04/12/24 19:57 Room Air 04/12/24 18:08 Room Air 04/12/24 17:30 Room Air 04/12/24 16:30 Room Air 04/12/24 16:10 Room Air 04/12/24 16:00 Room Air 04/12/24 16:00 04/12/24 15:30 Room Air 04/12/24 14:55 Room Air 04/12/24 14:48 Room Air 04/12/24 14:30 Room Air 04/12/24 13:30 Room Air 04/12/24 13:00 Room Air 04/12/24 12:38 Room Air 04/12/24 12:30 Room Air 04/12/24 12:00 04/12/24 12:00 Room Air 04/12/24 11:30 Room Air 04/12/24 11:15 Room Air 04/12/24 11:00 Room Air 04/12/24 11:00 Room Air 04/12/24 10:57 04/12/24 10:45 Room Air 04/12/24 10:30 Nasal Cannula 2 04/12/24 10:25 Nasal Cannula 2 04/12/24 10:20 Nasal Cannula 2 04/12/24 10:15 Room Air 04/12/24 09:35 Room Air 04/12/24 09:21 04/12/24 09:18 04/12/24 09:14 Room Air Intake and Output 04/12/24 04/13/24 04/13/24 19:59 03:59 11:59 Intake Total 440 / 680 240 / 680 Output Total 150 / 150 0 / 150 Balance 290 / 530 240 / 530 Intake: Intake, Oral Amount 440 / 680 240 / 680 Output: Output, Urine Amount 150 / 150 0 / 150 Other: Number of Unmeasured Voids 0 1 Weight 181 lb 4.8 oz Patient Weight 04/13/24 11:59 Weight 181 lb 4.8 oz Laboratory Results - last 24 hr 04/12/24 09:16: WBC 8.5, RBC 4.50 L, Hgb 13.5 L, Hct 41.1 L, MCV 91.3, MCH 30.0, MCHC 32.8, RDW 14.1, Plt Count 180, MPV 10.8 H, Neut % (Auto) 66.1, Lymph % (Auto) 24.5, [place] % (Auto) 6.3, Eos % (Auto) 2.3, Baso % (Auto) 0.4, Neut # (Auto) 5.7, Lymph # (Auto) 2.1, [place] # (Auto) 0.5, Eos # (Auto) 0.2, Baso # (Auto) 0.0, PT 12.1, INR 1.09, APTT 26.9, Sodium 139, Potassium 3.9, Chloride 109 H, Carbon Dioxide 24, Anion Gap 9.9, BUN 15, Creatinine 1.00, Estimated Creat Clear 63, Estimated GFR 71, Est GFR ( Amer) 86, Glucose 113 H, Calcium 8.6, Total Bilirubin 1.0, AST 28, ALT 21, Alkaline Phosphatase 95, Tro ponin I 0.03, NT-Pro-B Natriuret Pep 4070 H, Total Protein 6.5, Albumin 3.7, Globulin 2.8, Albumin/Globulin Ratio 1.3, HCV Ab AMAN w/Rflx PCR Qn Negative, HIV Ag/Ab Combo Qual Negative 04/12/24 12:50: Sodium 137, Potassium 3.9, Chloride 109 H, Carbon Dioxide 22, Anion Gap 9.9, BUN 14, Creatinine 0.90, Estimated Creat Clear 63, Estimated GFR 80, Est GFR ( Amer) 97, Glucose 90 D, Calcium 8.7, Troponin I 0.03 04/12/24 15:40: Troponin I 0.03 I & O for Labs for Last 24 Hours: Intake & Output 04/10/24 04/11/24 04/12/24 04/13/24 11:59 11:59 11:59 11:59 Intake Total 680 / 680 Output Total 150 / 150 Balance 530 / 530 Weight 186 lb 181 lb 4.8 oz Constitutional: Present no acute distress Respiratory: Present CTA bilaterally Cardiac: Present Reg Rate and Rhythm GI: Present soft; Absent distention or tenderness Extremities: Absent edema Skin: Present intact Neuro: Present alert, awake and oriented x 3 Assessment and Plan *Assessment and plan (1) Bradycardic cardiac arrest: Status: Acute Category: Medical Code(s): R00.1 - Bradycardia, unspecified; I46.2 - Cardiac arrest due to underlying cardiac condition (2) Elevated brain natriuretic peptide (BNP) level: Status: Acute Category: Medical Code(s): R79.89 - Other specified abnormal findings of blood chemistry (3) CAD (coronary artery disease): Status: Acute Category: Medical Code(s): I25.10 - Atherosclerotic heart disease of [place] coronary artery without angina pectoris (4) Heart failure with reduced ejection fraction: Status: Acute Category: Medical Code(s): I50.20 - Unspecified systolic (congestive) heart failure (5) Pleural effusion, bilateral: Status: Acute Category: Medical Code(s): J90 - Pleural effusion, not elsewhere classified Plan BP has improved. Awaiting lifevest placement this am and then will plan to discharge with outpatient f/u with cardiology. Dr. Avalos entry - Saw patient, agree with above note. OK to discharge home today with cardiology follow up in a few days.
[2024-04-13] MEDS: FUROSEMIDE 40MG/4ML VIAL 40 MG IV (08:42)
[2024-04-13] MEDS: ASPIRIN EC 81MG TABLET 81 MG PO (08:42)
--- NOTE | 2024-04-13 08:42 | EXP.CARD.PN ---
Subjective Subjective Date: 04/13/24 Time: 08:00 Principal diagnosis: leila arrest Interval history: Patient doing well, no events over the evening. Diuresing well. Morning labs reviewed and stable. Vitals stable Exam Data for Last 24 hours Vital signs and Labs for Last 24 Hours: Temp Pulse Resp BP Pulse Ox O2 Del Method O2 Flow Rate 97.8 F 66 18 112/69 95 Room Air 2 04/13/24 07:51 04/13/24 07:51 04/13/24 07:51 04/13/24 07:51 04/13/24 07:51 04/13/24 07:51 04/12/24 10:30 Laboratory Results - last 24 hr 04/12/24 09:16: WBC 8.5, RBC 4.50 L, Hgb 13.5 L, Hct 41.1 L, MCV 91.3, MCH 30.0, MCHC 32.8, RDW 14.1, Plt Count 180, MPV 10.8 H, Neut % (Auto) 66.1, Lymph % (Auto) 24.5, Crockett % (Auto) 6.3, Eos % (Auto) 2.3, Baso % (Auto) 0.4, Neut # (Auto) 5.7, Lymph # (Auto) 2.1, Crockett # (Auto) 0.5, Eos # (Auto) 0.2, Baso # (Auto) 0.0, PT 12.1, INR 1.09, APTT 26.9, Sodium 139, Potassium 3.9, Chloride 109 H, Carbon Dioxide 24, Anion Gap 9.9, BUN 15, Creatinine 1.00, Estimated Creat Clear 63, Estimated GFR 71, Est GFR ( Amer) 86, Glucose 113 H, Calcium 8.6, Total Bilirubin 1.0, AST 28, ALT 21, Alkaline Phosphatase 95, Troponin I 0.03, NT-Pro-B Natriuret Pep 4070 H, Total Protein 6.5, Albumin 3.7, Globulin 2.8, Albumin/Globulin Ratio 1.3, HCV Ab AMAN w/Rflx PCR Qn Negative, HIV Ag/Ab Combo Qual Negative 04/12/24 12:50: Sodium 137, Potassium 3.9, Chloride 109 H, Carbon Dioxide 22, Anion Gap 9.9, BUN 14, Creatinine 0.90, Estimated Creat Clear 63, Estimated GFR 80, Est GFR ( Amer) 97, Glucose 90 D, Calcium 8.7, Troponin I 0.03 04/12/24 15:40: Troponin I 0.03 I & O for Last 24 hours: Intake & Output 04/10/24 04/11/24 04/12/24 04/13/24 23:59 23:59 23:59 23:59 Intake Total 440 / 680 240 / 240 Output Total 150 / 150 0 / 0 Balance 290 / 530 240 / 240 Weight 186 lb 181 lb 4.8 oz Constitutional Constitutional: no acute distress *Routine Respiratory Exam Respiratory: Present CTA bilaterally and symmetric chest movement *Routine Cardiovascular Exam Cardiovascular: Present RRR, Normal S1 and Normal S2 *Routine Abdominal Exam Abdominal: Present soft and normoactive bowel sounds; Absent tenderness *Routine Extremities Exam Extremities: Present full ROM and normal capillary refill; Absent edema *Routine Skin Exam Skin: Present intact, dry and warm Detailed Neck Exam: Thyroids Thyroid: Absent bruit Progress Note: A&P Assessment and plan (1) Bradycardic cardiac arrest: Status: Acute (2) Elevated brain natriuretic peptide (BNP) level: Status: Acute (3) CAD (coronary artery disease): Status: Acute (4) Heart failure with reduced ejection fraction: Status: Acute (5) Pleural effusion, bilateral: Status: Acute Assessment and Plan Assessment and Plan for All Diagnoses:: Coronary artery disease Chronically occluded LAD Anterior aneurysm Status post brief bradycardiac arrest Left heart cath 04/12/2024: 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 LDL goal < 55, LDL is 87 Continue spirin 81 mg p.o. daily and atorvastatin 40 mg p.o. daily Acute HFrEF- EF 25% Recent bilateral pleural effusion noted on abdomen pelvis CT scan 03/23/2020 BNP 4070 Chest x-ray shows left basilar density, suspect pleural effusion with atelectasis Echo 04/03/2024 shows moderate reduced LV systolic function of 35 to 40%, grade 3 diastolic dysfunction, the distal and apical LV gonzales are nearly akinetic, mild RV dilation with normal RV function, mild biatrial dilation with mild to moderate MR and mild TR. RVSP 40-45. Repeat limited echo with contrast today shows the left ventricle is dilated, increased LV wall thickness, severe global hypokinesis. Distal and apical LV gonzales akinetic. Medium size apical aneurysm is present, EF 25%. No evidence of LV thrombus. Hold losartan and beta-alexandrea due to bradycardia and hypotension Lasix 20 mg p.o. daily Patient needs lifevest placement prior to DC home. CV summary 04/12/2024: Status post left heart catheterization which shows an anterior aneurysm and chronically occluded LAD. Repeat limited echo shows no LV thrombus and an EF of 25%. Continue to hold losartan and beta-alexandrea today due to hypotension and bradycardia. Continue Lasix over the weekend at 20 mg p.o. daily and follow-up with cardiology clinic on Wednesday. Consider addition of Jardiance and Aldactone Wednesday. Will need lifevest placement prior to dc. CV meds: Aspirin 81 mg p.o. daily Atorvastatin 40 mg p.o. daily Lasix 20mg po daily Losartan-hold Metoprolol-hold Jardiance- Consider starting at Wednesday office follow up Aldactone-Consider starting at Wednesday office follow up
--- NOTE | 2024-04-13 10:37 | HMH.PHAINT1 ---
Pharmacy Intervention Comments: COUNSELED PATIENT AND FAMILY ON NEW MEDICATIONS WELL MEDICATIONS THE PATIENT WILL BE STOPPING. BOTH VERBALIZED UNDERSTANDING.
[2024-04-13 12:00] VITALS: PULSE 60
--- NOTE | 2024-04-14 10:24 | SW/DCPLANNER ---
Spoke with patient on the phone. Patient stated that he is doing very well and he is very appreciative of the care and how he was treated at the hospital. Patient stated that he is aware of his appoinments and he was able to get his medicne from clinic. Patient stated that with everything that he went through he is supposed to have a colonostomy at the end of the month and he is paco scared to go through that right now. Patient stated that he would talk to his primary care provider about it. Patient stated that he has no concern or questions at this time. Corbin Powell
--- NOTE | 2024-04-18 12:45 | EXP.DC.SUM ---
General Admission date:: 04/12/24 Discharge date: 04/13/24 HPI HPI HPI: This is an 88-year-old white male with past medical history of spinal canal stenosis and bilateral pleural effusions who presented to stress lab this morning for outpatient stress testing secondary to a new onset cardiomyopathy discovered during preoperative planning for a laminectomy for his spinal canal stenosis. During recovery phase of stress testing patient developed hypotension and went into brief period of bradycardic arrest. Prior to chest compressions being started patient became responsive again with heart rate and blood pressure both improving. Patient became fully alert and oriented x 3 with only complaint being right shoulder pain. Initial fingerstick 115. Pre-procedure EKG and old EKG reviewed which showed ST elevation in V2 and V3 with old Q waves present. The ST elevation become more pronounced in V2-V4 during the recovery phase of the Laura stress and returned to baseline on post event EKG. Patient was ultimately taken to the [facility] which showed an anterior aneurysm with an ejection fraction of 15% along with a chronic LAD occlusion with no collaterals present, official [facility] report is pending. Patient will be admitted to the hospital for further management for CAD and heart failure reduced ejection fraction. Labs as follow: WBC 8.5, hemoglobin 13.5, sodium 139, potassium 3.9, creatinine 1, proBNP 4070, troponin 0.03. Repeat limited echo is pending. (above as per cardiology) Hospital Course Hospital Course Hospital Course: CV summary 04/12/2024: Status post left heart catheterization which shows an anterior aneurysm and chronically occluded LAD. Repeat limited echo shows no LV thrombus and an EF of 25%. Continue to hold losartan and beta-alexandrea today due to hypotension and bradycardia. Continue Lasix over the weekend at 20 mg p.o. daily and follow-up with cardiology clinic on Wednesday. Consider addition of Jardiance and Aldactone Wednesday. Will need lifevest placement prior to dc. On admission patient was started on 81 mg of aspirin daily and atorvastatin 40 mg daily. Losartan and beta-alexandrea were held due to bradycardia and hypotension. Patient was started on 40 mg of Lasix daily for fluid overload. Patient noted that he did need a LifeVest before discharge to home. Patient diuresed well with the Lasix. On 04/13/2024 patient was doing well. He had no further events. He denied any chest pain or shortness of breath. He slept decently and was able to eat his breakfast. Vital signs were stable. [facility] To follow-up with cardiology the following week. Exam Data for Last 24 hours Vital signs and Labs for Last 24 Hours: Temp Pulse Resp BP Pulse Ox O2 Del Method O2 Flow Rate 97.8 F 60 18 112/69 95 Room Air 2 04/13/24 07:51 04/13/24 12:00 04/13/24 07:51 04/13/24 07:51 04/13/24 07:51 04/13/24 12:39 04/12/24 10:30 Narrative: 04/13/2024 PE Constitutional: Present no acute distress Respiratory: Present CTA bilaterally Cardiac: Present Reg Rate and Rhythm GI: Present soft; Absent distention or tenderness Extremities: Absent edema Skin: Present intact Neuro: Present alert, awake and oriented x 3 Results Data Completed and Pending Completed studies during hospitalization [Text1]: 04/12/2024 ECHO Conclusion This is a limited TTE to wait for LV systolic function and evaluate for LV thrombus in the setting of apical akinesis. Limited windows were obtained. The left ventricle is dilated. There is increased LV wall thickness. There is severe global hypokinesis present. The distal and apical LV gonzales are akinetic. 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 There is no evidence of LV thrombus following administration of ultrasound enhancing agent. 04/12/2024 cardiac cath results ANGIOGRAPHIC RESULTS The left main artery Normal The left anterior descending artery Proximally occluded with no collateralization The circumflex artery Large nondominant with proximal smooth 20 to 30% stenosis The right coronary artery Large dominant with an ostial 20% stenosis and mild 10% luminal regularities The LYONS ventriculogram reveals Anterior apical and inferior apical akinesis with aneurysmal dilatation ejection fraction 15 to 20% The left ventricular end-diastolic pressure 10 mmHg IMPRESSION Chronically occluded LAD without collateralization accompanied by large akinetic aneurysmal wall as described above Normal LVEDP PLAN 1. Given patient is status post cardiac arrest requiring chest compressions with asystole I would recommend AICD and pacemaker placement this admission 2. 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 Anticoagulation should be considered to reduce embolic event from aneurysmal anterior wall 3. Patient should not undergo elective laminectomy until pacemaker/AICD placement has occurred 4. Standard therapy for systolic heart failure which should include Entresto carvedilol and statin therapy 5. Consider anticoagulation DS: Diagnosis Discharge Diagnosis (1) Bradycardic cardiac arrest: Status: Acute Code(s): R00.1 - Bradycardia, unspecified; I46.2 - Cardiac arrest due to underlying cardiac condition (2) Elevated brain natriuretic peptide (BNP) level: Status: Acute Code(s): R79.89 - Other specified abnormal findings of blood chemistry (3) CAD (coronary artery disease): Status: Acute Code(s): I25.10 - Atherosclerotic heart disease of [place] coronary artery without angina pectoris (4) Heart failure with reduced ejection fraction: Status: Acute Code(s): I50.20 - Unspecified systolic (congestive) heart failure (5) Pleural effusion, bilateral: Status: Acute Code(s): J90 - Pleural effusion, not elsewhere classified Meds Home Medications and Allergies Home Medications ?Medication ?Instructions ?Recorded ?Confirmed ?Type polyethylene glycol 3350 17 17 g PO DAILY 02/15/24 04/17/24 History gram/dose oral powder (ClearLax) B-complex with vitamin C 1 tab PO DAILY 03/30/24 04/17/24 History cholecalciferol (vitamin D3) 25 25 mcg PO DAILY 03/30/24 04/17/24 History mcg (1,000 unit) capsule aspirin 81 mg tablet,delayed 81 mg PO DAILY #30 tabs 04/13/24 04/17/24 Rx release atorvastatin 40 mg tablet 40 mg PO DAILY #30 tabs 04/13/24 04/17/24 Rx sodium,potassium,mag sulfates 17.5 See Rx Instructions PO .COMPLEX 04/13/24 04/17/24 Rx gram-3.13 gram-1.6 gram oral soln #354 mL (Suprep Bowel Prep Kit) furosemide 20 mg tablet (Lasix) 20 mg PO DAILY #90 tabs 04/17/24 04/17/24 Rx empagliflozin 10 mg tablet 10 mg PO DAILY #30 tabs 04/18/24 Rx (Jardiance) sacubitril 24 mg-valsartan 26 mg 1 tab PO BID #60 tabs 04/18/24 Rx tablet (Entresto) spironolactone 25 mg tablet 25 mg PO DAILY #30 tabs 01/21/25 Rx (Aldactone) New Prescriptions to Start Prescriptions: aspirin Clayton Avalos atorvastatin Clayton Avalos Allergies Allergy/AdvReac Type Severity Reaction Status Date / Time No Known Allergies Allergy Verified 04/17/24 08:51 Discharge Plan Disposition Patient Disposition: Home, Self-Care Condition: Fair Discharge Order Discharge Orders: Discharge Order (Routine); Ordered 04/13/24 Ordered By: Clayton Avalos Follow up Plan Follow up with: Shawna Vieira APRN [Nurse Practitioner] - 04/17/24 9:00 am Clayton Avalos MD [Primary Care Provider] - 04/27/24 10:30 am Prescriptions/Medication Reconciliation: New atorvastatin 40 mg Tablet 40 mg PO DAILY Qty: 30 0RF aspirin 81 mg Tablet,Delayed Release (Dr/Ec) 81 mg PO DAILY Qty: 30 0RF Continued polyethylene glycol 3350 [ClearLax] 17 gram/dose powder 17 g PO DAILY cholecalciferol (vitamin D3) 25 mcg (1,000 unit) capsule 25 mcg PO DAILY B-complex with vitamin C Tablet 1 tab PO DAILY Discontinued losartan 100 mg tablet 100 mg PO DAILY Patient Comments: TAKE 1 TABLET BY MOUTH ONCE DAILY metoprolol succinate [Toprol XL] 25 mg tablet extended release 24 hr 25 mg PO DAILY Qty: 30 5RF furosemide [Lasix] 20 mg tablet 20 mg PO DAILY Qty: 5 0RF No Action furosemide [Lasix] 20 mg tablet 20 mg PO DAILY Qty: 90 3RF sodium,potassium,mag sulfates [Suprep Bowel Prep Kit] 17.5-3.13-1.6 gram recon soln See Rx Instructions PO .COMPLEX Qty: 354 0RF Rx Instructions: DILUTE; drink full amount early evening before AND next morning at least 4-5 hr before procedure; follow w 960 mL water PO sacubitril-valsartan [Entresto] 24-26 mg tablet 1 tab PO BID Qty: 60 2RF spironolactone [Aldactone] 25 mg tablet 25 mg PO DAILY Qty: 30 2RF Jardiance 10 mg tablet 10 mg PO DAILY Qty: 30 2RF Problem Reconciliation Problems Reviewed?: Yes Patient Discharge Instructions ACTIVITY: Limited activity DIET: low salt diet and cardiac Additional Instructions: LifeVest per cardiology Patient Instructions: DI for Syncope in Adults (Fainting), Cardiac Catheterization, Surgical Site Infection, Cardiology Catheterization Patient / Family Discharge Instructions Print Language: Yakut Providers Primary Care Provider: Clayton Avalos Admit Provider: Clayton Avalos Attending Provider: Clayton Avalos
== END 2024-04-13 14:02 | disposition home or self-care (01) | DRG 286 ==
LOC: ER 09:30 → CATHLAB 09:31 → 2ND 10:20
PROVIDERS: Internal Medicine; Nurse Practitioner; Admitting Provider Family Medicine; Emergency Provider Emergency Medicine; PCP Family Medicine; Visit Provider Family Medicine
PROC: 4A023N7 Measurement of Cardiac Sampling and Pressure, Left Heart, Percutaneous Approach (ICD-10-PCS; principal; 2024-04-12 09:20)
DX: I25.3 Aneurysm of heart (principal); I46.2 Cardiac arrest due to underlying cardiac condition; I50.23 Acute on chronic systolic (congestive) heart failure; I42.9 Cardiomyopathy, unspecified; I25.10 Atherosclerotic heart disease of native coronary artery without angina pectoris; I25.82 Chronic total occlusion of coronary artery; I11.0 Hypertensive heart disease with heart failure; R00.1 Bradycardia, unspecified
CPT/HCPCS: 93458; 36415; 71045; 80048; 80053; 83880; 84484; 85025; 85610; 85730; 86803; 87389; 93005; 93308; 99152; 99291; C1725; C1769; J1200; J1644; J1940; J2250; J3010; Q9957; Q9967

== ENCOUNTER 2024-04-17 09:50 | Outpatient (CLI) | payer MEDICARE, SELFPAY ==
--- NOTE | 2024-04-17 09:55 | CA_ITS ---
APPROVED REPORT EXAM: Limited 2D Echocardiogram with contrast Global Process Owner: Janel Ruby CRT Ht: 5 ft 10 in Wt: 186lbs BSA: 2.02 BP: 145/78 mmHg Indications: EF Check, Lifevest placed 04/13/24 echo 04-12-24 ef 25% post bradycardiac event during gxt echo 04-03-24 ef 35-40% Echo Enhancing Agent Indication: Endocardial border delineation Agent(s) / Amount(s) Used: Definity 2 cc Comments: Definity given M-Mode Dimensions RVDd 3.63 cm (0.9-2.6) LVDd 6.00 cm (3.5-5.7) LVDs 4.54 cm (3.5-5.7) IVSd 1.30 cm (0.6-1.1) PWd 1.24 cm (0.6-1.1) EF (Teich) 47.60% FS 24.30% EDV (Teich) 180.00 mL ESV (Teich) 94.40 mL Other Information Study Quality: Fair Conclusion This is a limited TTE to evaluate for LV systolic limited windows are obtained. Ultrasound enhancing agent is administered. Left ventricle is normal in size. There is increased LV wall thickness. There is severe global hypokinesis present. The distal and apical LV gonzales are akinetic. No evidence of LV thrombus. LVEF is 25%. Compared to prior study from 04/12/2023, the LVEF is unchanged. Electronically signed by : Joelle Conroy MD 04/18/2024 09:28:06
[2024-04-17] MEDS: DEFINITY US ECHO CONTRAST 2ML INJ 2 MG IV (11:05)
== END 2024-04-17 23:59 | disposition home or self-care (01) ==
LOC: RT 09:51
PROVIDERS: PCP Family Medicine; Visit Provider Nurse Practitioner
DX: I11.0 Hypertensive heart disease with heart failure (principal); I25.10 Atherosclerotic heart disease of native coronary artery without angina pectoris; I50.20 Unspecified systolic (congestive) heart failure; I25.2 Old myocardial infarction; R00.1 Bradycardia, unspecified; I46.2 Cardiac arrest due to underlying cardiac condition; I21.3 ST elevation (STEMI) myocardial infarction of unspecified site; R93.1 Abnormal findings on diagnostic imaging of heart and coronary circulation; R94.31 Abnormal electrocardiogram [ECG] [EKG]; I42.8 Other cardiomyopathies; R06.09 Other forms of dyspnea; J90 Pleural effusion, not elsewhere classified
CPT/HCPCS: 93308; Q9957

== ENCOUNTER 2024-05-07 16:12 | Inpatient (IN) | payer MEDICARE, SELFPAY ==
[2024-05-07] VITALS (8 sets, daily range): BP systolic 102–129; BP diastolic 59–76; PULSE 55–74; RESP 13–20; TEMP 36.6–36.9; O2SAT 98–100; BMI 25.8; BMI 25.9
--- NOTE | 2024-05-07 16:14 | ED_ITS ---
<Statement entered by Holly Scruggs DO - 05/07/24 22:16> I was consulted by the BALAJI, and we discussed the complexity of the problems being addressed. I approved the treatment and management plan for this patient's care in the emergency department, thus performing a substantive portion of the medical decision making. Holly Scruggs DO Discharge Plan Disposition Patient Disposition: Admitted Condition: Good Prescriptions Prescriptions: No Action polyethylene glycol 3350 [ClearLax] 17 gram/dose powder 17 g PO DAILY cholecalciferol (vitamin D3) 25 mcg (1,000 unit) capsule 25 mcg PO DAILY B-complex with vitamin C Tablet 1 tab PO DAILY furosemide [Lasix] 20 mg tablet 20 mg PO DAILY Qty: 90 3RF metoprolol succinate 25 mg tablet extended release 24 hr 25 mg PO ONCE Patient Comments: TAKE 1 TABLET BY MOUTH ONCE DAILY sacubitril-valsartan [Entresto] 49-51 mg tablet 1 tab PO BID Qty: 60 2RF sodium,potassium,mag sulfates [Suprep Bowel Prep Kit] 17.5-3.13-1.6 gram recon soln See Rx Instructions PO .COMPLEX Qty: 354 0RF Rx Instructions: DILUTE; drink full amount early evening before AND next morning at least 4-5 hr before procedure; follow w 960 mL water PO spironolactone [Aldactone] 25 mg tablet 25 mg PO DAILY Qty: 30 2RF Jardiance 10 mg tablet 10 mg PO DAILY Qty: 30 2RF atorvastatin 40 mg Tablet 40 mg PO DAILY Qty: 30 0RF aspirin 81 mg Tablet,Delayed Release (Dr/Ec) 81 mg PO DAILY Qty: 30 0RF Referrals Follow up/Referrals: Clayton Avalos MD [Primary Care Provider] - See instructions Clinical Impressions Clinical Impression: Duodenitis, Transaminitis Instructions Patient Instructions: DI for Acute Abdominal Pain Print Language Print Language: Sudanese Discharge ED Provider: Holly Scruggs General Adult HPI <CONNOR Montes - Last Filed: 05/07/24 18:59> General Chief complaint: Abdominal Pain Stated complaint: abdominal pain Time Seen by Provider: 05/07/24 16:14 History of Present Illness HPI narrative: Patient presents for evaluation of epigastric abdominal pain. Patient states that he began having pain around 10 AM this morning. It is not radiating. It is located in epigastrium without cardiac chest pain shortness of breath fever chills hemoptysis hematochezia melena nausea vomiting diarrhea. Patient is tolerant of oral intake. He is having normal bowel movement. More significantly patient came in approximately a month ago for cardiac stress test and during the stress test had a bradycardic event. 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 He is currently wearing a LifeVest. Related Data Home Medications ?Medication ?Instructions ?Recorded ?Confirmed polyethylene glycol 3350 17 17 g PO DAILY 02/15/24 04/24/24 gram/dose oral powder (ClearLax) B-complex with vitamin C 1 tab PO DAILY 03/30/24 04/24/24 cholecalciferol (vitamin D3) 25 25 mcg PO DAILY 03/30/24 04/24/24 mcg (1,000 unit) capsule metoprolol succinate 25 mg 25 mg PO ONCE 04/24/24 04/24/24 tablet,extended release 24 hr Previous Rx's ?Medication ?Instructions ?Recorded aspirin 81 mg tablet,delayed 81 mg PO DAILY #30 tabs 04/13/24 release atorvastatin 40 mg tablet 40 mg PO DAILY #30 tabs 04/13/24 sodium,potassium,mag sulfates 17.5 See Rx Instructions PO .COMPLEX 04/13/24 gram-3.13 gram-1.6 gram oral soln #354 mL (Suprep Bowel Prep Kit) furosemide 20 mg tablet (Lasix) 20 mg PO DAILY #90 tabs 04/17/24 empagliflozin 10 mg tablet 10 mg PO DAILY #30 tabs 04/18/24 (Jardiance) spironolactone 25 mg tablet 25 mg PO DAILY #30 tabs 04/18/24 (Aldactone) sacubitril 49 mg-valsartan 51 mg 1 tab PO BID #60 tabs 04/24/24 tablet (Entresto) Allergies Allergy/AdvReac Type Severity Reaction Status Date / Time No Known Allergies Allergy Verified 04/24/24 09:50 [facility] <CONNOR Montes - Last Filed: 05/07/24 18:59> [facility] Disclaimer: The information contained in this section may have been updated after the patient was seen, as this information can be updated by other users. Medical History Syncope Acute NH Vagal reaction Bradycardic cardiac arrest ST elevation NH (STEMI) Elevated brain natriuretic peptide (BNP) level Encounter for pre-operative cardiovascular clearance Weight loss Early satiety Loss of appetite Bloating Constipation Diarrhea Change in bowel habits Sacroiliitis Right leg pain Right hip pain Chronic pain syndrome Lumbar spinal stenosis Degenerative disc disease, lumbar Lumbar radiculopathy Bulging disc Degenerative disc disease Cholelithiasis Hypertension Cholecystitis History of myocardial infarction elevated troponin Dyspnea on exertion Pleural effusion, bilateral Chronic pain HTN (hypertension) Surgical History Status post laparoscopic cholecystectomy Acute cholecystitis without calculus History of left cataract surgery History of cholecystectomy Family History Other Unknown family medical history Social History Smoking Status: Never smoker second hand exposure: No alcohol intake: never current occupational status: other Travel in the last 8 weeks: None household members: spouse housing: house current occupation: [employer] current occupational exposures/hazards: No caffeine: Yes Have you lived/traveled outside US in past 30 days?: No Contact w/someone who lives/traveled outside US past 30 days?: No Exposure to someone with infectious disease in past 14 days?: No Do you have a fever (greater than 100.4 F or 38 C)?: No Have you tested positive for COVID-19: No Exposed to someone with COVID-19 in past 14 days?: No Do you have a sore throat?: No Do you have a cough?: No Do you have any weakness?: No Do you have any diarrhea?: No Are you experiencing any unusual bleeding?: No Do you have any muscle aches/pain?: No Do you have any abdominal pain?: Yes Are you experiencing loss of taste or smell?: No Other Medical History Have you received the Flu Vaccine for this season: No Have you received the Pneumonia Vaccine: No <CONNOR Montes - Last Filed: 05/07/24 18:59> ROS Obtained: Yes Systems reviewed as appropriate & no additional complaints except as documented Physical Exam <CONNOR Montes - Last Filed: 05/07/24 18:59> General General appearance: alert and in no apparent distress Respiratory Respiratory exam: Present normal lung sounds bilaterally Cardiovascular Cardiovascular exam: Present regular rate Neurological Exam Neurological exam: Present alert and oriented X3 Medical Decision Making <CONNOR Montes - Last Filed: 05/07/24 18:59> Medical Records Medical records reviewed: Yes I reviewed the patient's medical records. Screening: Per USPSTF and CDC recommendations, given the prevalence of disease in our region, it is our hospital?s policy to screen for HIV and viral Hepatitis for all patients aged 18 and over and those with ongoing risk factors. Marlon Inquiry Pt receiving controlled substance: No Vital Signs: 05/07/24 16:15 05/07/24 17:00 05/07/24 18:00 Temperature 97.8 F Temperature Source Oral Pulse Rate 55 L 71 Pulse Rate [Radial] 57 L Respiratory Rate 20 17 13 Blood Pressure 104/59 L 108/66 L Blood Pressure [R ARm] 129/76 Blood Pressure Mean [R ARm] 93 Blood Pressure Source [R ARm] Automatic Cuff Blood Pressure Position [R ARm] Supine 02 Sat by Pulse Oximetry 99 99 100 Oxygen Delivery Method Room Air Room Air Room Air Lab Data Lab results reviewed: Yes I reviewed the patient's lab results. Lab Results 05/07/24 16:32: WBC 12.8 H, RBC 4.78, Hgb 14.7, Hct 44.0, MCV 92.1, MCH 30.8, MCHC 33.4, RDW 14.1, Plt Count 183, MPV 11.8 H, Neut % (Auto) 78.3, Lymph % (Auto) 15.1, [place] % (Auto) 4.9, Eos % (Auto) 1.2, Baso % (Auto) 0.2, Neut # (Auto) 10.0 H, Lymph # (Auto) 1.9, [place] # (Auto) 0.6, Eos # (Auto) 0.2, Baso # (Auto) 0.0, PT 11.1, INR 1.01, APTT 25.5, Sodium 139, Potassium 3.6, Chloride 102, Carbon Dioxide 30, Anion Gap 10.6, BUN 16, Creatinine 1.10, Estimated Creat Clear 56, Estimated GFR 63, Est GFR ( Amer) 77, Glucose 150 H, Calcium 8.8, Total Bilirubin 1.7 H, AST 476 H*, ALT 326 H*, Alkaline Phosphatase 430 H, Troponin I 0.02, NT-Pro-B Natriuret Pep 1210 H, Total Protein 6.9, Albumin 4.0, Globulin 2.9, Albumin/Globulin Ratio 1.4, Acetaminophen < 10 L 05/07/24 16:39: VBG pH 7.33 05/07/24 17:05: Lactate 1.8 05/07/24 16:32 05/07/24 16:32 Orders (Tests/Meds): ED MEDICATIONS Generic Name Dose Route Start Last Admin Trade Name Sauloq PRN Reason Stop Dose Admin Acetaminophen 650 mg 05/07/24 18:52 Acetaminophen 325mg Tab PO 06/06/24 18:51 Q6HP PRN Fever or Mild Pain (1-3) Pantoprazole Sodium 80 mg/ 100 mls @ 10 mls/hr 05/07/24 19:00 Sodium Chloride IV 05/10/24 18:59 .Q10H VIET Morphine Sulfate 4 mg 05/07/24 18:52 Morphine 4mg/Ml Syringe IV 06/06/24 18:51 Q2HP PRN pain Ondansetron HCl 4 mg 05/07/24 18:52 Ondansetron 4mg/2ml Vial IV 06/06/24 18:51 Q8HP PRN Nausea And Vomiting Discontinued Medications Generic Name Dose Route Start Last Admin Trade Name Sauloq PRN Reason Stop Dose Admin Belladonna Alkaloids 60 ml 05/07/24 16:53 05/07/24 17:00 Belladonna Alkaloids 60 Ml Ml PO 05/07/24 16:54 60 ml ONCE ONE Administration Iopamidol 80 ml 05/07/24 17:47 05/07/24 17:48 Iopamidol-370 (76%);100ml Bottle IV 05/07/24 17:48 80 ml ONCE ONE Administration Morphine Sulfate 2 mg 05/07/24 16:53 05/07/24 17:00 Morphine 2mg/Ml Syringe IV 05/07/24 16:54 2 mg ONCE ONE Administration Ondansetron HCl 4 mg 05/07/24 16:53 05/07/24 17:00 Ondansetron 4mg/2ml Vial IV 05/07/24 16:54 4 mg ONCE ONE Administration Sodium Chloride 10 ml 05/07/24 17:47 05/07/24 17:48 Sodium Chloride 0.9% 10ml Syr (Rad Only) IV 05/07/24 17:48 10 ml ONCE ONE Administration Sodium Chloride 50 ml 05/07/24 17:47 05/07/24 17:48 0.9 % Sodium Chloride 50 Ml Vial IV 05/07/24 17:48 50 ml ONCE ONE Administration ORDERS Category Date Time Status CT angio abdomen pelvis Stat Cat Scan 05/07/24 16:[address] angio chest - dissection Stat Cat Scan 05/07/24 16:53 Completed CXR --portable [XR chest portable] Stat Exams 05/07/24 16:39 Completed Acetaminophen Stat Lab 05/07/24 16:32 Completed BNP [NT Pro Brain Natriuretic Pep.] Stat Lab 05/07/24 16:32 Completed Complete Blood Count Auto Diff Stat Lab 05/07/24 16:32 Completed Comprehensive Metabolic Panel Stat Lab 05/07/24 16:32 Results Hepatitis Panel Stat Lab 05/07/24 18:30 Received Lactic Acid Stat Lab 05/07/24 17:05 Completed Lipase Stat Lab 05/07/24 16:32 Results PT INR [Prothrombin Time INR] Stat Lab 05/07/24 16:32 Completed PTT [Activated Partial Thrombo Time] Stat Lab 05/07/24 16:32 Completed Trop I [Troponin I] Stat Lab 05/07/24 16:32 Results Troponin I Q3H Lab 05/07/24 18:30 Received Troponin I Q3H Lab 05/07/24 22:45 Ordered VBG PH Stat Lab 05/07/24 16:39 Completed HEART Score History (anamnesis): Slightly suspicious ECG: Non-specific disturbance Age: >65 years Risk factors: Atherosclerosis history Troponin: </= normal limit HEART Score: 5 Medical Decision Narrative: In summary patient is a 88-year-old man who presents to the emergency department for evaluation of gastric abdominal pain. Patient is hemodynamically stable with a blood pressure of 129/76 pulse 57 with sinus bradycardia on the bedside monitor breathing 20 times a minute satting at 99% on room air upon arrival, with a temperature of 97.8. Physical exam is remarkable for exquisite tenderness in the epigastrium on palpation without rebound or guarding or rigidity normal bowel sounds. Breath sounds are clear and equal bilaterally to the bases with adventitious sounds.. Differential diagnosis includes gastritis versus ulcer versus esophagitis versus pancreatitis versus constipation versus ACS etc. Initial workup will be conducted with hematologic labs twelve-lead CT scan of the chest abdomen and pelvis hematologic labs urinalysis. Initial interventions include Tylenol GI cocktail morphine. Initial workup reviewed by me and his hematologic labs are significant for transaminitis and hyperbilirubinemia and unfortunately there is a lab error and the machine that has a lipase is currently out of reagent although it is pending acetaminophen level was less than 10 NT proBNP is 1210 which is less than it was a month ago and my informal interpretation CT scan abdomen pelvis does not show any evidence of pancreatitis but it does show a thickened gastric wall but no free air. Upon repeat evaluation patient had complete resolution of his symptoms after GI cocktail. Given this I had interactive discussion with Dr. Irving of gastroenterology regarding patient MORGAN findings and management and we both concurred that patient would likely benefit for further inpatient workup given the biliary findings as well as the gastric findings. I then had interactive discussion with Dr. Avalos about patient MORGAN findings and management and he will be admitted for further evaluation and care. <Holly Scruggs, DO - Last Filed: 05/07/24 16:58> Vital Signs: 05/07/24 16:15 05/07/24 17:00 05/07/24 18:00 Temperature 97.8 F Temperature Source Oral Pulse Rate 55 L 71 Pulse Rate [Radial] 57 L Respiratory Rate 20 17 13 Blood Pressure 104/59 L 108/66 L Blood Pressure [R ARm] 129/76 Blood Pressure Mean [R ARm] 93 Blood Pressure Source [R ARm] Automatic Cuff Blood Pressure Position [R ARm] Supine 02 Sat by Pulse Oximetry 99 99 100 Oxygen Delivery Method Room Air Room Air Room Air Lab Data Lab Results 05/07/24 16:32: WBC 12.8 H, RBC 4.78, Hgb 14.7, Hct 44.0, MCV 92.1, MCH 30.8, MCHC 33.4, RDW 14.1, Plt Count 183, MPV 11.8 H, Neut % (Auto) 78.3, Lymph % (Auto) 15.1, [place] % (Auto) 4.9, Eos % (Auto) 1.2, Baso % (Auto) 0.2, Neut # (Auto) 10.0 H, Lymph # (Auto) 1.9, [place] # (Auto) 0.6, Eos # (Auto) 0.2, Baso # (Auto) 0.0, PT 11.1, INR 1.01, APTT 25.5, Sodium 139, Potassium 3.6, Chloride 102, Carbon Dioxide 30, Anion Gap 10.6, BUN 16, Creatinine 1.10, Estimated Creat Clear 56, Estimated GFR 63, Est GFR ( Amer) 77, Glucose 150 H, Calcium 8.8, Total Bilirubin 1.7 H, AST 476 H*, ALT 326 H*, Alkaline Phosphatase 430 H, Troponin I 0.02, NT-Pro-B Natriuret Pep 1210 H, Total Protein 6.9, Albumin 4.0, Globulin 2.9, Albumin/Globulin Ratio 1.4, Acetaminophen < 10 L 05/07/24 16:39: VBG pH 7.33 05/07/24 17:05: Lactate 1.8 Orders (Tests/Meds): ED MEDICATIONS Generic Name Dose Route Start Last Admin Trade Name Freq PRN Reason Stop Dose Admin Acetaminophen 650 mg 05/07/24 18:52 Acetaminophen 325mg Tab PO 06/06/24 18:51 Q6HP PRN Fever or Mild Pain (1-3) Pantoprazole Sodium 80 mg/ 100 mls @ 10 mls/hr 05/07/24 19:00 Sodium Chloride IV 05/10/24 18:59 .Q10H VIET Morphine Sulfate 4 mg 05/07/24 18:52 Morphine 4mg/Ml Syringe IV 06/06/24 18:51 Q2HP PRN pain Ondansetron HCl 4 mg 05/07/24 18:52 Ondansetron 4mg/2ml Vial IV 06/06/24 18:51 Q8HP PRN Nausea And Vomiting Discontinued Medications Generic Name Dose Route Start Last Admin Trade Name Freq PRN Reason Stop Dose Admin Belladonna Alkaloids 60 ml 05/07/24 16:53 05/07/24 17:00 Belladonna Alkaloids 60 Ml Ml PO 05/07/24 16:54 60 ml ONCE ONE Administration Iopamidol 80 ml 05/07/24 17:47 05/07/24 17:48 Iopamidol-370 (76%);100ml Bottle IV 05/07/24 17:48 80 ml ONCE ONE Administration Morphine Sulfate 2 mg 05/07/24 16:53 05/07/24 17:00 Morphine 2mg/Ml Syringe IV 05/07/24 16:54 2 mg ONCE ONE Administration Ondansetron HCl 4 mg 05/07/24 16:53 05/07/24 17:00 Ondansetron 4mg/2ml Vial IV 05/07/24 16:54 4 mg ONCE ONE Administration Sodium Chloride 10 ml 05/07/24 17:47 05/07/24 17:48 Sodium Chloride 0.9% 10ml Syr (Rad Only) IV 05/07/24 17:48 10 ml ONCE ONE Administration Sodium Chloride 50 ml 05/07/24 17:47 05/07/24 17:48 0.9 % Sodium Chloride 50 Ml Vial IV 05/07/24 17:48 50 ml ONCE ONE Administration ORDERS Category Date Time Status CT angio abdomen pelvis Stat Cat Scan 05/07/24 16:[address] angio chest - dissection Stat Cat Scan 05/07/24 16:53 Completed CXR --portable [XR chest portable] Stat Exams 05/07/24 16:39 Completed Acetaminophen Stat Lab 05/07/24 16:32 Completed BNP [NT Pro Brain Natriuretic Pep.] Stat Lab 05/07/24 16:32 Completed Complete Blood Count Auto Diff Stat Lab 05/07/24 16:32 Completed Comprehensive Metabolic Panel Stat Lab 05/07/24 16:32 Results Hepatitis Panel Stat Lab 05/07/24 18:30 Received Lactic Acid Stat Lab 05/07/24 17:05 Completed Lipase Stat Lab 05/07/24 16:32 Results PT INR [Prothrombin Time INR] Stat Lab 05/07/24 16:32 Completed PTT [Activated Partial Thrombo Time] Stat Lab 05/07/24 16:32 Completed Trop I [Troponin I] Stat Lab 05/07/24 16:32 Results Troponin I Q3H Lab 05/07/24 18:30 Received Troponin I Q3H Lab 05/07/24 22:45 Ordered VBG PH Stat Lab 05/07/24 16:39 Completed ECG Data Tracing #1: I reviewed this ECG and interpreted as documented below: Sinus bradycardia with a ventricular rate of 53 bpm. Some motion artifact. ST elevation/changes in the anteroseptal leads. Similar ST changes to prior, but similar bit more pronounced on this EKG. I discussed case with Dr. Tolentino who advised this is chronic change related to his aneurysm secondary to prior NH. [facility] not activated. ECG initial impression date: 05/07/24 ECG initial impression time: 16:31 Tracing #2: I reviewed this ECG and interpreted as documented below: Sinus rhythm with a ventricular rate of [address] elevation/changes in the anteroseptal leads. Similar ST changes to prior, but similar bit more pronounced on this EKG. I discussed case with Dr. Tolentino who advised this is chronic change related to his aneurysm secondary to prior NH. [facility] not activated. ECG initial impression date: 05/07/24 ECG initial impression time: 16:36 Tracing #3: I reviewed this ECG and interpreted as documented below: Obtained due to increase in pain. Sinus bradycardia with a ventricular rate of [address] changes in the anteroseptal leads not significantly changed from prior EKG, as previously documented. ECG initial impression date: 05/07/24 ECG initial impression time: 16:56 Critical Care <CONNOR Montes - Last Filed: 05/07/24 18:59> Critical Care Time Critical Care Time: No
--- NOTE | 2024-05-07 16:39 | XR_ITS ---
PROCEDURE INFORMATION: Exam: XR Chest Exam date and time: 05/07/2024 4:47 PM Age: 88 years old Clinical indication: Pain; Chest pressure; Additional info: Chest pain TECHNIQUE: Imaging protocol: Radiologic exam of the chest. Views: 1 view. COMPARISON: CR XR CHEST PORTABLE 04/12/2024 12:57 PM FINDINGS: Lungs: Lung volumes are mildly diminished. The lungs appear clear. No focal areas of consolidation. Pleural spaces: No pleural effusions. Negative for pneumothorax. Heart/Mediastinum: Cardiac silhouette and pulmonary vasculature are within range of normal. Bones/joints: There is no evidence of acute fracture. The thoracic spine demonstrates moderate degenerative changes at multiple levels. Other findings: Study quality is limited due to overlying extrinsic artifact. IMPRESSION: Negative for an acute cardiopulmonary abnormality.
[2024-05-07 16:49] LABS: VBG PH 7.33 mmol/L (7.31-7.41)
--- NOTE | 2024-05-07 16:53 | CT_ITS ---
PROCEDURE INFORMATION: Exam: CTA Chest With Contrast Exam date and time: 05/07/2024 5:38 PM Age: 88 years old Clinical indication: Other: Epigastric pain TECHNIQUE: Imaging protocol: Computed tomographic angiography of the chest with contrast. Exam focused on the arteries. 3D rendering (Not supervised by radiologist): MIP and/or 3D reconstructed images were created by the technologist. Radiation optimization: All CT scans at this facility use at least one of these dose optimization techniques: automated exposure control; mA and/or kV adjustment per patient size (includes targeted exams where dose is matched to clinical indication); or iterative reconstruction. Contrast material: ISOVUE; Contrast volume: 80 ml; Contrast route: INTRAVENOUS (IV); COMPARISON: CT ANGIO CHEST 05/07/2024 5:38 PM FINDINGS: Pulmonary arteries: There is heterogeneous contrast attenuation of visualized pulmonary arteries, more pronounced in the subsegmental vessels and likely related to contrast bolus. This limits the detection of pulmonary emboli in the small and peripheral pulmonary arterial branches. As seen, no large or central pulmonary emboli. Aorta: The thoracic aorta demonstrates mild atherosclerotic calcification. The ascending thoracic aorta is mildly prominent measuring 4.5 x 4.4 cm. The aortic arch measures 3.2 cm. The descending thoracic aorta measures 3.1 cm. There is [id number] atheromatous plaque involving the aortic arch. No dissection. Teeth: Dental amalgam artifact limits evaluation of adjacent structures. Thyroid: There are 2 tiny subcentimeter hypodensities in the left thyroid lobe which are not optimally characterized on current exam. The thyroid gland is otherwise normal. Lungs: No focal areas of consolidation. No masses. Pleural spaces: There are no pleural effusions. No pneumothorax. Heart: The heart is mildly enlarged. There is no evidence of pericardial fluid collections. Lymph nodes: Calcified mediastinal lymph nodes indicate prior granulomatous disease. There are a few scattered mediastinal and hilar lymph nodes, the majority which are not of pathologic significance. A subcarinal lymph node is mildly prominent measuring approximately 12 mm. A right paratracheal lymph node measures 12 mm in short axis. There is a small stable nodular focus adjacent to the right lateral distal esophagus measuring approximately 2.1 x 1.6 x 1.6 cm, unchanged from prior exam. Findings may reflect an enlarged node but can not entirely exclude small epiphrenic diverticula. This is best seen on series 1001 images [id number] as well as series 5 images 103-95. Diaphragm: There is mild elevation of the left hemidiaphragm. Intraperitoneal space: Findings within the upper abdomen are described in the associated CT of the abdomen and pelvis report from the same date and time. Please reference that report for additional information. Bones/joints: The thoracic spine demonstrates moderate degenerative changes at multiple levels. No acute fracture. Soft tissues: Unremarkable. IMPRESSION: 1. Mild ectasia of the thoracic aorta. No dissection. 2. Small stable nodular focus adjacent to the right lateral distal esophagus measuring approximately 2.1 x 1.6 x 1.6 cm, unchanged from prior exam. Findings may reflect an enlarged node but can not entirely exclude small epiphrenic diverticula. 3. Mild cardiomegaly. 4. A few mildly prominent nonspecific mediastinal lymph nodes.
--- NOTE | 2024-05-07 16:53 | CT_ITS ---
PROCEDURE INFORMATION: Exam: CTA Abdomen and Pelvis With Contrast Exam date and time: 05/07/2024 5:38 PM Age: 88 years old Clinical indication: Abdominal pain; Other: Gastric pain TECHNIQUE: Imaging protocol: Computed tomographic angiography of the abdomen and pelvis with contrast. Exam focused on the arteries. 3D rendering (Not supervised by radiologist): MIP and/or 3D reconstructed images were created by the technologist. Radiation optimization: All CT scans at this facility use at least one of these dose optimization techniques: automated exposure control; mA and/or kV adjustment per patient size (includes targeted exams where dose is matched to clinical indication); or iterative reconstruction. Contrast material: ISOVUE; Contrast volume: 80 ml; Contrast route: INTRAVENOUS (IV); COMPARISON: CT ABDOMEN PELVIS W CON 03/23/2024 8:04 AM FINDINGS: Esophagus: There is a small nodular focus adjacent to the right lateral distal esophagus measuring approximately 2.1 x 1.6 x 1.6 cm as seen on series 5, image 58 and series 4, image 100. This is unchanged from prior exam. Findings may reflect an enlarged node but can not entirely exclude small epiphrenic diverticula. Diaphragm: A small hiatal hernia is present. Aorta: The aorta and iliac arteries demonstrate moderate atherosclerotic calcification. Celiac trunk and mesenteric arteries: There is mild stenosis involving the origin of the celiac artery. There is mild stenosis involving the origin of the SMA. Renal arteries: No significant stenosis involving the right renal artery. The TUNDE is patent. Right iliac arteries: No occlusion or significant stenosis. Left iliac arteries: No occlusion or significant stenosis. Liver: No mass. Gallbladder and biliary ducts: The gallbladder is not seen suggesting cholecystectomy.There is a mild, expected degree of common bile duct dilation. The proximal common duct measures approximately 10 mm. Pancreas: The pancreas appears within range of normal. Spleen: The spleen demonstrates punctate calcifications, consistent with remote granulomatous organism exposure. Adrenal glands: Unremarkable. No mass. Kidneys and ureters: There are a few scattered areas of renal cortical thinning and scarring consistent with senescent change. There is mild nonspecific perinephric fat stranding. The kidneys are otherwise within range of normal. Stomach and bowel: Lack of gastrointestinal contrast limits evaluation of bowel. There are a few colonic diverticula without evidence of diverticulitis. There is mildly excessive colonic stool content. Unopacified loops of small bowel within range of normal. Apparent mural thickening of the mid stomach is likely due to incomplete distension. The stomach is otherwise normal. The duodenum is unremarkable. Appendix: A normal appendix is identified. Intraperitoneal space: There is no evidence of free intraperitoneal or pelvic fluid. No evidence of intraperitoneal free air. Lymph nodes: There is no evidence of pathologic adenopathy. There are scattered shotty retroperitoneal and periportal lymph nodes, not of pathologic significance by CT size criteria. Urinary bladder: The bladder is normal. Reproductive: The prostate demonstrates mild nonspecific enlargement. The seminal vesicles are normal. The prostate demonstrates nonspecific parenchymal calcifications. Prostate measures 4.1 x 3.4 cm. Bones/joints: There are mild degenerative changes of the hip joints. There are mild degenerative changes of the symphyseal pubic joint. There are mild degenerative changes of the sacroiliac joints. The thoracolumbar spine demonstrates moderate degenerative changes at multiple levels. There is grade 1 anterior spondylolisthesis of L4 on L5. There is grade 1 retrolisthesis of L5 on S1. There is slight retrolisthesis of L3 on L4. There is marked bilateral neural foraminal narrowing at the L2-L3 and L3-L4 levels as well as L5-S1. There is moderate to marked neural foraminal narrowing at the L4-L5 level. There are variable levels of central canal stenosis, most prominent at L3-L4 and L4-L5. Advanced facet degenerative arthropathy is also present from the L4 through S1 levels. Soft tissues: Minor fat prominence in the inguinal canals may reflect minor inguinal hernias. Other findings: Findings within the lower chest are described in the associated CT of the chest report from the same date and time. Please reference that report for additional information. IMPRESSION: 1. Mild constipation. 2. Apparent mural thickening involving the mid stomach is likely due to incomplete distension. Correlate clinically. 3. Mild nonspecific prostatic enlargement.
--- NOTE | 2024-05-07 16:57 | ECG_ITS ---
APPROVED REPORT Exam: Resting ECG HR:53 bpm ECG Measurements Heart Rate 53 AXES OH 156 P 44 QRSd 96 QRS 18 QT 451 T 102 QTc 435 Conclusion SINUS BRADYCARDIA WITH OCCASIONAL VENTRICULAR PREMATURE COMPLEXES ANTEROSEPTAL MYOCARDIAL INFARCTION , PROBABLY RECENT [40+ ms Q WAVE IN V1-V4] concern for anterior ischemic changes, compared to prior, these abnormalities are chronic and stable Electronically signed by : ELENI GRAHAM, 05/10/2024 07:16:06
[2024-05-07] MEDS: ONDANSETRON 4MG/2ML VIAL 4 MG IV (17:00)
[2024-05-07] MEDS: BELLADONNA ALKALOIDS 60 ML ML PO (17:00)
[2024-05-07] MEDS: MORPHINE 2MG/ML SYRINGE 2 MG IV (17:00)
[2024-05-07 17:07] LABS: Basophils % 0.2 % (0.1-2.0); Eosinophils # 0.2 K/mm3 (0.0-0.4); Eosinophils % 1.2 % (0.1-12.0); Hemoglobin 14.7 g/dL (14.1-18.0); Lymphocytes # 1.9 K/mm3 (0.7-4.5); Lymphocytes % 15.1 % (10-50); Mean Corpuscular HGB Conc 33.4 g/dL (31.8-35.4); Mean Corpuscular Hemoglobin 30.8 pg (27.0-31.2); Mean Corpuscular Volume 92.1 fl (80-94); Mean Platelet Volume 11.8 fl (7.4-10.4); Monocytes # 0.6 K/mm3 (0.1-1.0); Monocytes % 4.9 % (1.7-9.3); Neutrophils % 78.3 % (37.0-80.0); Platelet Count 183 K/mm3 (142-424); Red Blood Count 4.78 M/mm3 (4.60-6.20); Red Cell Distribution Width 14.1 % (11.5-17.5); White Blood Count 12.8 K/mm3 (4.8-10.8)
[2024-05-07 17:16] LABS: Chloride 102 mmol/L (98-107); Potassium 3.6 mmoL/L (3.5-5.1); Sodium 139 mmol/L (136-145)
[2024-05-07 17:18] LABS: Alanine Aminotransferase 326 U/L (12-78); Albumin/Globulin Ratio 1.4 (1.1-1.8); Alkaline Phosphatase 430 U/L (38-126); Anion Gap 10.6 mEq/L (5-15); Aspartate Amino Transferase 476 U/L (17-59); Bilirubin,Total 1.7 mg/dl (0.2-1.3); Blood Urea Nitrogen 16 mg/dl (9-20); Carbon Dioxide 30 mmol/L (22.0-30.0); Creatinine Clearance Estimated 56 mL/min (50-200); Estimated Glomerular Filt Rate 63 ml/min (>60); GFR (African American) 77 ML/MIN (>60); Globulin 2.9 g/dL (1.3-3.2); Total Protein,Serum 6.9 g/dl (6.3-8.2)
[2024-05-07 17:19] LABS: Calcium 8.8 mg/dl (8.4-10.2); Glucose 150 mg/dl (74-100)
[2024-05-07 17:28] LABS: NT Pro Brain Natriuretic Pep. 1210 pg/mL (0-450)
[2024-05-07 17:31] LABS: Troponin I 0.02 ng/ml (0.00-0.034)
[2024-05-07 17:34] LABS: Activated Partial Thrombo Time 25.5 seconds (22.5-28.5); INR 1.01 (0.9-1.1); Prothrombin Time 11.1 seconds (9.2-12.1)
[2024-05-07 17:42] LABS: Lactic Acid 1.8 mmol/L (0.7-2.1)
[2024-05-07] MEDS: SODIUM CHLORIDE 0.9% 10ML SYR (RAD ONLY) 10 ML IV (17:48)
[2024-05-07] MEDS: 0.9 % SODIUM CHLORIDE 50 ML VIAL IV (17:48)
[2024-05-07] MEDS: IOPAMIDOL-370 (76%);100ML BOTTLE 80 ML IV (17:48)
[2024-05-07 18:06] LABS: Acetaminophen < 10 ug/ml (10-30)
--- NOTE | 2024-05-07 18:13 | PC.NURSE ---
ROUNDED ON THE PT. THE PT VOICES THAT HE DOES NOT NEED ANYTHING AT THIS TIME. CALL LIGHT IS WITHIN REACH OF THE PT. THE IS PRESENT AT THE BEDSIDE.
--- NOTE | 2024-05-07 18:47 | PC.NURSE ---
DR ERICA CHAUDHARI
--- NOTE | 2024-05-07 18:55 | PC.NURSE ---
DR DOWD SPEAKING WITH DR MALDONADO FOR ADMISSION
[2024-05-07 19:05] LABS: Troponin I 0.02 ng/ml (0.00-0.034)
--- NOTE | 2024-05-07 19:20 | PC.NURSE ---
Protonix not started in ER; Medication not available. Patient going to [facility] at 7:30pm; will be started on M/S.
--- NOTE | 2024-05-07 19:25 | PC.NURSE ---
Patient resting with at bedside.
--- NOTE | 2024-05-07 19:41 | PC.NURSE ---
Report given to Annia on floor. Going to room 202. Waiting for floor to come get patient.
--- NOTE | 2024-05-07 19:58 | PC.NURSE ---
Patient arrived to floor via wheelchair from ED at 19:57.
[2024-05-07 20:20] LABS: Lipase 14186 U/L (23-300)
[2024-05-07] MEDS: PANTOPRAZOLE SODIUM 80 MG in 0.9 % SODIUM CHLORIDE 100 ML 10 MG IV (20:25)
--- NOTE | 2024-05-07 20:38 | PC.NURSE ---
Contacted Dr Avalos, critical Lipase of 58,186. New orders for D5 0.9%NS @50 ml/hr, am labs.
[2024-05-07] MEDS: Dextrose 5 % and 0.9 % NaCl 1,000 ML 50 ML IV (21:35)
[2024-05-07 23:28] LABS: Troponin I 0.02 ng/ml (0.00-0.034)
[2024-05-08] VITALS (22 sets, daily range): BP systolic 91–129; BP diastolic 47–83; PULSE 40–79; RESP 16–21; TEMP 36.3–37; O2SAT 96–100; BMI 24.3
--- NOTE | 2024-05-08 | FL_ITS ---
FINAL REPORT CLINICAL HISTORY: ERCP IN OR 1.6 min 51.77 mGy FINDINGS: FLUOROSCOPY LESS THAN 1 HOUR HISTORY: Fluoroscopy guidance. Fluoroscopic guidance was provided for ERCP in the OR. A single spot film was obtained. A total of 1.6 minutes of fluoroscopy time were used. Total DAP: 51.77 mGy IMPRESSION: As above. Reviewed, Interpreted and Dictated by Manish Eli MD Transcribed by Debra Mendez Authenticated and [facility]
[2024-05-08 04:51] LABS: Basophils % 0.4 % (0.1-2.0); Eosinophils # 0.3 K/mm3 (0.0-0.4); Eosinophils % 3.7 % (0.1-12.0); Hematocrit 39.7 % (42.0-52.0); Lymphocytes # 1.4 K/mm3 (0.7-4.5); Mean Corpuscular HGB Conc 33.2 g/dL (31.8-35.4); Mean Corpuscular Hemoglobin 30.3 pg (27.0-31.2); Mean Corpuscular Volume 91.3 fl (80-94); Mean Platelet Volume 11.7 fl (7.4-10.4); Monocytes # 0.5 K/mm3 (0.1-1.0); Monocytes % 6.7 % (1.7-9.3); Neutrophils # 5.1 K/mm3 (1.8-7.8); Neutrophils % 69.9 % (37.0-80.0); Platelet Count 147 K/mm3 (142-424); Red Blood Count 4.35 M/mm3 (4.60-6.20); White Blood Count 7.3 K/mm3 (4.8-10.8)
[2024-05-08 05:03] LABS: Albumin Level 3.3 g/dl (3.5-5.0); Chloride 106 mmol/L (98-107); Hemoglobin 13.2 g/dL (14.1-18.0); Sodium 138 mmol/L (136-145)
[2024-05-08 05:04] LABS: Potassium 3.9 mmoL/L (3.5-5.1)
[2024-05-08 05:06] LABS: Alanine Aminotransferase 478 U/L (12-78); Albumin/Globulin Ratio 1.3 (1.1-1.8); Alkaline Phosphatase 388 U/L (38-126); Amylase 661 U/L (30-110); Anion Gap 7.9 mEq/L (5-15); Aspartate Amino Transferase 626 U/L (17-59); Bilirubin,Total 2.1 mg/dl (0.2-1.3); Blood Urea Nitrogen 14 mg/dl (9-20); Calcium 8.3 mg/dl (8.4-10.2); Carbon Dioxide 28 mmol/L (22.0-30.0); Creatinine Clearance Estimated 58 mL/min (50-200); Estimated Glomerular Filt Rate 71 ml/min (>60); GFR (African American) 86 ML/MIN (>60); Globulin 2.6 g/dL (1.3-3.2); Glucose 92 mg/dl (74-100); Total Protein,Serum 5.9 g/dl (6.3-8.2)
[2024-05-08 05:20] LABS: Lipase 3656 U/L (23-300)
--- NOTE | 2024-05-08 05:21 | PC.NURSE ---
lab reported critical lipase of 3656, value has decreased from 14,186
--- NOTE | 2024-05-08 05:24 | PC.NURSE ---
Pt remains on protonix drip @ 10ml/hr. Pt has rested intermittently this shift and has remained NPO since MD due to GI consult and possible procedure. Pt has life vest in place and battery was changed approx 2200 and placed on forensic economist. Pt has bradycardia on telemetry. Pt denies pain and nausea.
[2024-05-08] MEDS: PANTOPRAZOLE SODIUM 80 MG in 0.9 % SODIUM CHLORIDE 100 ML 10 MG IV (05:51)
--- NOTE | 2024-05-08 08:21 | HMH.PHAINT1 ---
Pharmacy Intervention Comments: HOME MEDICATION LIST VERIFIED USING LIST FROM OUTPATIENT PHARMACY, CARDIOLOGY OFFICE AND PT INTERVIEW
--- NOTE | 2024-05-08 08:36 | P.HP_ITS ---
History of Present Illness *Admission Date: 05/07/24 *Reason for visit:: Abdominal pain *History of present illness: Mr. 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 Who presented to [facility] for evaluation after experiencing severe abdominal pain for about 5 to 6 hours. He states he went to [facility] as usual and did well after which he had biscuit egg and cheese sandwich. Following this he had indigestion and severe abdominal pain which he tolerated until about 4 PM. At that time his made him come to the ER for evaluation. He states he tried to vomit but could not. His bowels did not move. He denies chest pain and shortness of breath during this period. In the emergency room lipase was found to be 14,000 with elevated liver function studies. He was severely tender in the right upper quadrant. He received a GI cocktail and morphine after which his abdominal pain subsided. GI was consulted and it was felt he would do well with admission for further follow-up. Studies also noted the following: CTA of the abdomen/pelvis revealed mild constipation, apparent mural thickening involving the mid stomach is likely due to the incomplete distention. And nonspecific mild prostatic enlargement. Chest CTA reveals mild ectasia of the thoracic aorta with no dissection, stable small nodular foci adjacent to the right lateral distal esophagus measuring about 2.1 x 1.6 and unchanged from prior exam, possible enlarged node but cannot entirely exclude small epiphrenic diverticuli, mild cardiomegaly, and a few mild prominent nonspecific mediastinal lymph nodes This a.m. he is sitting up in a chair with his in an adjacent chair. He appears most comfortable. He is hungry. He denies having any pain and nausea [facility] Disclaimer: The information contained in this section may have been updated after the arabella booth was seen, as this information can be updated by other users. Medical History Syncope Acute MD Vagal reaction Bradycardic cardiac arrest ST elevation MD (STEMI) Elevated brain natriuretic peptide (BNP) level Encounter for pre-operative cardiovascular clearance Weight loss Early satiety Loss of appetite Bloating Constipation Diarrhea Change in bowel habits Sacroiliitis Right leg pain Right hip pain Chronic pain syndrome Lumbar spinal stenosis Degenerative disc disease, lumbar Lumbar radiculopathy Bulging disc Degenerative disc disease Cholelithiasis Hypertension Cholecystitis History of myocardial infarction elevated troponin Dyspnea on exertion Pleural effusion, bilateral Chronic pain HTN (hypertension) Surgical History Status post laparoscopic cholecystectomy Acute cholecystitis without calculus History of left cataract surgery History of cholecystectomy Family History Other Unknown family medical history Social History (Updated 05/07/24 @ 21:46 by Annia Blanco RN) Smoking Status: Never smoker second hand exposure: No alcohol intake: never current occupational status: retired and other Travel in the last 8 weeks: None household members: spouse housing: house current occupation: [employer] current occupational exposures/hazards: No caffeine: Yes Have you lived/traveled outside [place] in past 30 days?: No Contact w/someone who lives/traveled outside US past 30 days?: No Exposure to someone with infectious disease in past 14 days?: No Do you have a fever (greater than 100.4 F or 38 C)?: No Have you tested positive for COVID-19: No Exposed to someone with COVID-19 in past 14 days?: No Do you have a sore throat?: No Do you have a cough?: No Do you have any weakness?: No Do you have any diarrhea?: No Are you experiencing any unusual bleeding?: No Do you have any muscle aches/pain?: No Do you have any abdominal pain?: Yes Are you experiencing loss of taste or smell?: No Other Medical History Have you received the Flu Vaccine for this season: No Have you received the Pneumonia Vaccine: No Review of Systems Constitutional Constitutional: Denies fatigue, Denies fever(s), Denies frequent falls, Denies headache(s), Denies poor appetite and Reports weight loss Eyes Eyes: Denies change in vision ENT Ears, Nose, Mouth, and Throat: Denies otalgia, Denies headache(s), Denies sore throat and Denies vertigo *Cardiovascular Cardiovascular: Denies chest pain, Denies dyspnea and Denies palpitations *Respiratory Respiratory: Denies cough and Denies dyspnea *Gastrointestinal Gastrointestinal: Reports abdominal pain, Denies belching, Denies change in bowel habits, Denies loose stools, Reports nausea and Denies vomiting *Genitourinary Genitourinary: Denies difficulty urinating *Musculoskeletal Musculoskeletal: Reports arthralgias *Neurologic Neurologic: Denies confusion, Denies frequent falls, Denies headache(s) and Denies vertigo Psychiatric Psychiatric: Denies confusion Endocrine Endocrine: Denies fatigue and Denies palpitations Meds Home Medications and Allergies Home Medications ?Medication ?Instructions ?Recorded ?Confirmed ?Type B-complex with vitamin C 1 tab PO DAILY 03/30/24 05/07/24 History cholecalciferol (vitamin D3) 25 25 mcg PO DAILY 03/30/24 05/07/24 History mcg (1,000 unit) capsule aspirin 81 mg tablet,delayed 81 mg PO DAILY #30 tabs 04/13/24 05/07/24 Rx release atorvastatin 40 mg tablet 40 mg PO DAILY #30 tabs 04/13/24 05/07/24 Rx furosemide 20 mg tablet (Lasix) 20 mg PO DAILY #90 tabs 04/17/24 05/07/24 Rx empagliflozin 10 mg tablet 10 mg PO DAILY #30 tabs 04/18/24 05/07/24 Rx (Jardiance) sacubitril 49 mg-valsartan 51 mg 1 tab PO BID #60 tabs 04/24/24 05/07/24 Rx tablet (Entresto) spironolactone 25 mg tablet 25 mg PO DAILY 05/08/24 05/08/24 History New Prescriptions to Start Prescriptions: Allergies Allergy/AdvReac Type Severity Reaction Status Date / Time No Known Allergies Allergy Verified 04/24/24 09:50 Exam Data for Last 24 hours Vital signs and Labs for Last 24 Hours: Temp Pulse Resp BP Pulse Ox O2 Del Method 98.0 F 45 L 20 103/47 L 98 Room Air 05/08/24 08:00 05/08/24 08:00 05/08/24 00:00 05/08/24 08:00 05/08/24 08:00 05/08/24 08:00 Laboratory Results - last 24 hr 05/07/24 11:00: Troponin I 0.02 05/07/24 16:32: WBC 12.8 H, RBC 4.78, Hgb 14.7, Hct 44.0, MCV 92.1, MCH 30.8, MCHC 33.4, RDW 14.1, Plt Count 183, MPV 11.8 H, Neut % (Auto) 78.3, Lymph % (Auto) 15.1, [place] % (Auto) 4.9, Eos % (Auto) 1.2, Baso % (Auto) 0.2, Neut # (Auto) 10.0 H, Lymph # (Auto) 1.9, [place] # (Auto) 0.6, Eos # (Auto) 0.2, Baso # (Auto) 0.0, PT 11.1, INR 1.01, APTT 25.5, Sodium 139, Potassium 3.6, Chloride 102, Carbon Dioxide 30, Anion Gap 10.6, BUN 16, Creatinine 1.10, Estimated Creat Clear 56, Estimated GFR 63, Est GFR ( Amer) 77, Glucose 150 H, Calcium 8.8, Total Bilirubin 1.7 H, AST 476 H*, ALT 326 H*, Alkaline Phosphatase 430 H, Troponin I 0.02, NT-Pro-B Natriuret Pep 1210 H, Total Protein 6.9, Albumin 4.0, Globulin 2.9, Albumin/Globulin Ratio 1.4, Lipase 63502 H, Acetaminophen < 10 L 05/07/24 16:39: VBG pH 7.33 05/07/24 17:05: Lactate 1.8 05/07/24 18:30: Troponin I 0.02 05/08/24 04:36: WBC 7.3 D, RBC 4.35 L, Hgb 13.2 L D, Hct 39.7 L, MCV 91.3, MCH 30.3, MCHC 33.2, RDW 14.0, Plt Count 147, MPV 11.7 H, Neut % (Auto) 69.9, Lymph % (Auto) 19.0, [place] % (Auto) 6.7, Eos % (Auto) 3.7, Baso % (Auto) 0.4, Neut # (Auto) 5.1, Lymph # (Auto) 1.4, [place] # (Auto) 0.5, Eos # (Auto) 0.3, Baso # (Auto) 0.0, Sodium 138, Potassium 3.9, Chloride 106, Carbon Dioxide 28, Anion Gap 7.9, BUN 14, Creatinine 1.00, Estimated Creat Clear 58, Estimated GFR 71, Est GFR ( Amer) 86, Glucose 92 D, Calcium 8.3 L, Total Bilirubin 2.1 H, AST 626 H* D, ALT 478 H*, Alkaline Phosphatase 388 H, Total Protein 5.9 L, Albumin 3.3 L D, Globulin 2.6, Albumin/Globulin Ratio 1.3, Amylase 661 H*, Lipase 3656 H I & O for Last 24 hours: Intake & Output 05/05/24 05/06/24 05/07/24 05/08/24 11:59 11:59 11:59 11:59 Intake Total 190 / 190 Output Total 0 / 0 Balance 190 / 190 Weight 170 lb Constitutional Constitutional: no acute distress Comments: Sitting up in a chair at bedside and appears comfortable. *Routine HEENT Exam Head: Present normocephalic and atraumatic Eye: Present PERRL; Absent conjunctival icterus, scleral injection or conjuncti vae pink ENT: Present mucous membranes moist and oropharynx clear *Routine Neck Exam Neck: Present supple; Absent carotid bruit, lymphadenopathy or thyromegaly Routine Chest/Breast/Axilla Exam Comments: He has a LifeVest on *Routine Respiratory Exam Respiratory: Present CTA bilaterally (And anteriorly and posteriorly) *Routine Cardiovascular Exam Cardiovascular: Present RRR and bradycardia *Routine Abdominal Exam Abdominal: Present soft and normoactive bowel sounds; Absent tenderness, distended or organomegaly *Routine Rectal Exam Rectal:: deferred *Routine Genitalia Exam Genitalia:: deferred *Routine Extremities Exam Extremities: Absent edema or calf tenderness *Routine Neurological Exam Neurological: Present alert and oriented X3 Assessment and Plan *Assessment and plan (1) Pancreatitis: Status: Acute Category: Medical Code(s): K85.90 - Acute pancreatitis without necrosis or infection, unspecified (2) Transaminitis: Status: Acute Category: Medical Code(s): R74.01 - Elevation of levels of liver transaminase levels (3) Heart failure with reduced ejection fraction: Status: Acute Category: Medical Code(s): I50.20 - Unspecified systolic (congestive) heart failure (4) CAD (coronary artery disease): Status: Acute Category: Medical Code(s): I25.10 - Atherosclerotic heart disease of [place] coronary artery without angina pectoris (5) Cardiomyopathy: Status: Acute Qualifiers: Cardiomyopathy type: other Qualified Code(s): I42.8 - Other cardiomyopathies Category: Medical Code(s): I42.9 - Cardiomyopathy, unspecified Plan This a.m. AST is 625 with an ALT of 478 and alkaline phosphatase is still high at 388. Amylase is 661 and lipase is decreased from 14,196-3656. GI has been consulted and he is scheduled for an MRCP today. Dr. Avalos entry - Saw patient, agree with above note.
--- NOTE | 2024-05-08 12:36 | CA_ITS ---
APPROVED REPORT EXAM: Limited 2D Echocardiogram with contrast Client Services Manager: Akosua Hare RT(R) Ht: 5 ft 10 in Wt: 180lbs BSA: 2.00 BP: 120/73 mmHg Indications: limited to reassess EF, HTN, CM, EF 25% on echo 04/17/24, CHF, in lifevest Echo Enhancing Agent Indication: Endocardial border delineation Agent(s) / Amount(s) Used: Definity 2 cc 2D Dimensions EF AP4 30.70 % GL Strain -10.7 % M-Mode Dimensions RVDd 2.15 cm (0.9-2.6) LVDd 6.37 cm (3.5-5.7) LVDs 5.51 cm (3.5-5.7) IVSd 0.89 cm (0.6-1.1) PWd 0.61 cm (0.6-1.1) EF (Teich) 28.30% FS 13.50% EDV (Teich) 206.30 mL ESV (Teich) 148.00 mL Other Information Study Quality: Fair Conclusion This is a limited TTE to evaluate LV systolic function. Limited windows are obtained. Ultrasound enhancing agent is administered to better delineate the endocardial borders. The left ventricle is moderately dilated (by biplane volume assessment). There is increased LV wall thickness. There is moderate to severe global hypokinesis present. There is severe hypokinesis of the apical and distal inferior and septal LV gonzales. LVEF is 30%. Administration of ultrasound enhancing agent demonstrates no evidence of LV thrombus. Electronically signed by : Joelle Conroy MD 05/08/2024 13:41:58
--- NOTE | 2024-05-08 14:12 | HMH.ITSTN ---
planned to do mri mrcp and 1pm, spoke with DUNCAN Ramos at approx. 1:10 PM about coming to get the patient. she stated the patient was getting an echo and cardiology is going to review patients echo and decide if they want the ordered mri mrcp or an ercp instead. RN is going to call back and let us know if we need to proceed with mri or cancel the order as soon as she knows.
--- NOTE | 2024-05-08 14:32 | P.CONS_ITS ---
History of Present Illness *Admission Date: 05/07/24 *History of present illness: Mr. Cross is an 88-year-old male with intermittent bouts of abdominal pain for months. This would usually last for 15 or 20 minutes and go away. Yesterday, he had a more intense bout of abdominal pain that persisted. He came to the emergency department yesterday and had CT scan of the abdomen and labs. His lab work showed a spike in liver chemistries with AST 476, ALT 326 and total bilirubin 1.7. His alkaline phosphatase was 430. His amylase today was 661 and his lipase yesterday was 14,186. His total bilirubin today is 2.1 and AST and ALT belia (626 and 4 and 78 respectively. Imaging of the abdomen showed mural wall thickening of the mid stomach with a normal-appearing duodenum. There was mild constipation. There was also a hiatal hernia. There appeared to be small nodular focus adjacent to the right lateral distal esophagus. The patient did have cholecystectomy several years ago (Mahendra Poon M.D.) for gallstones. On CAT scan the bile duct was mildly dilated to 10 mm but there was no visible choledocholithiasis. The patient does have intermittent episodes of severe diarrhea. The patient reports no prior episodes of pancreatitis or jaundice. The patient reports no fever but still has some epigastric abdominal pain. He reports no alcohol. [facility] Disclaimer: The information contained in this section may have been updated after the patient was seen, as this information can be updated by other users. Medical History Syncope Acute NE Vagal reaction Bradycardic cardiac arrest ST elevation NE (STEMI) Elevated brain natriuretic peptide (BNP) level Encounter for pre-operative cardiovascular clearance Weight loss Early satiety Loss of appetite Bloating Constipation Diarrhea Change in bowel habits Sacroiliitis Right leg pain Right hip pain Chronic pain syndrome Lumbar spinal stenosis Degenerative disc disease, lumbar Lumbar radiculopathy Bulging disc Degenerative disc disease Cholelithiasis Hypertension Cholecystitis History of myocardial infarction elevated troponin Dyspnea on exertion Pleural effusion, bilateral Chronic pain HTN (hypertension) Surgical History Status post laparoscopic cholecystectomy Acute cholecystitis without calculus History of left cataract surgery History of cholecystectomy Family History Other Unknown family medical history Social History (Updated 05/07/24 @ 21:46 by Annia Blanco RN) Smoking Status: Never smoker second hand exposure: No alcohol intake: never current occupational status: retired and other Travel in the last 8 weeks: None household members: spouse housing: house current occupation: [employer] current occupational exposures/hazards: No caffeine: Yes Have you lived/traveled outside US in past 30 days?: No Contact w/someone who lives/traveled outside US past 30 days?: No Exposure to someone with infectious disease in past 14 days?: No Do you have a fever (greater than 100.4 F or 38 C)?: No Have you tested positive for COVID-19: No Exposed to someone with COVID-19 in past 14 days?: No Do you have a sore throat?: No Do you have a cough?: No Do you have any weakness?: No Do you have any diarrhea?: No Are you experiencing any unusual bleeding?: No Do you have any muscle aches/pain?: No Do you have any abdominal pain?: Yes Are you experiencing loss of taste or smell?: No Review of Systems Constitutional Constitutional: Denies frequent falls and Denies headache(s) ENT Ears, Nose, Mouth, and Throat: Denies headache(s) and Denies vertigo *Neurologic Neurologic: Denies confusion, Denies frequent falls, Denies headache(s) and Denies vertigo Psychiatric Psychiatric: Denies confusion Meds Home Medications and Allergies Home Medications ?Medication ?Instructions ?Recorded ?Confirmed ?Type B-complex with vitamin C 1 tab PO DAILY 03/30/24 05/07/24 History cholecalciferol (vitamin D3) 25 25 mcg PO DAILY 03/30/24 05/07/24 History mcg (1,000 unit) capsule aspirin 81 mg tablet,delayed 81 mg PO DAILY #30 tabs 04/13/24 05/07/24 Rx release atorvastatin 40 mg tablet 40 mg PO DAILY #30 tabs 04/13/24 05/07/24 Rx furosemide 20 mg tablet (Lasix) 20 mg PO DAILY #90 tabs 04/17/24 05/07/24 Rx empagliflozin 10 mg tablet 10 mg PO DAILY #30 tabs 04/18/24 05/07/24 Rx (Jardiance) sacubitril 49 mg-valsartan 51 mg 1 tab PO BID #60 tabs 04/24/24 05/07/24 Rx tablet (Entresto) spironolactone 25 mg tablet 25 mg PO DAILY 05/08/24 05/08/24 History New Prescriptions to Start Prescriptions: Allergies Allergy/AdvReac Type Severity Reaction Status Date / Time No Known Allergies Allergy Verified 04/24/24 09:50 Exam (Inpt) Vital signs and Labs for Last 24 Hours: Temp Pulse Resp BP Pulse Ox O2 Del Method 98.6 F 45 L 18 91/56 L 99 Room Air 05/08/24 11:58 05/08/24 12:00 05/08/24 11:58 05/08/24 11:58 05/08/24 11:58 05/08/24 13:00 Laboratory Results - last 24 hr 05/07/24 11:00: Troponin I 0.02 05/07/24 16:32: WBC 12.8 H, RBC 4.78, Hgb 14.7, Hct 44.0, MCV 92.1, MCH 30.8, MCHC 33.4, RDW 14.1, Plt Count 183, MPV 11.8 H, Neut % (Auto) 78.3, Lymph % (Auto) 15.1, [place] % (Auto) 4.9, Eos % (Auto) 1.2, Baso % (Auto) 0.2, Neut # (Auto) 10.0 H, Lymph # (Auto) 1.9, [place] # (Auto) 0.6, Eos # (Auto) 0.2, Baso # (Auto) 0.0, PT 11.1, INR 1.01, APTT 25.5, Sodium 139, Potassium 3.6, Chloride 102, Carbon Dioxide 30, Anion Gap 10.6, BUN 16, Creatinine 1.10, Estimated Creat Clear 56, Estimated GFR 63, Est GFR ( Amer) 77, Glucose 150 H, Calcium 8.8, Total Bilirubin 1.7 H, AST 476 H*, ALT 326 H*, Alkaline Phosphatase 430 H, Troponin I 0.02, NT-Pro-B Natriuret Pep 1210 H, Total Protein 6.9, Albumin 4.0, Globulin 2.9, Albumin/Globulin Ratio 1.4, Lipase 38090 H, Acetaminophen < 10 L 02/09/25 16:39: VBG pH 7.33 05/07/24 17:05: Lactate 1.8 05/07/24 18:30: Troponin I 0.02 05/08/24 04:36: WBC 7.3 D, RBC 4.35 L, Hgb 13.2 L D, Hct 39.7 L, MCV 91.3, MCH 30.3, MCHC 33.2, RDW 14.0, Plt Count 147, MPV 11.7 H, Neut % (Auto) 69.9, Lymph % (Auto) 19.0, [place] % (Auto) 6.7, Eos % (Auto) 3.7, Baso % (Auto) 0.4, Neut # (Auto) 5.1, Lymph # (Auto) 1.4, [place] # (Auto) 0.5, Eos # (Auto) 0.3, Baso # (Auto) 0.0, Sodium 138, Potassium 3.9, Chloride 106, Carbon Dioxide 28, Anion Gap 7.9, BUN 14, Creatinine 1.00, Estimated Creat Clear 58, Estimated GFR 71, Est GFR ( Amer) 86, Glucose 92 D, Calcium 8.3 L, Total Bilirubin 2.1 H, AST 626 H* D, ALT 478 H*, Alkaline Phosphatase 388 H, Total Protein 5.9 L, A lbumin 3.3 L D, Globulin 2.6, Albumin/Globulin Ratio 1.3, Amylase 661 H*, Lipase 3656 H I & O for Labs for Last 24 Hours: Intake & Output 05/05/24 05/06/24 05/07/24 05/08/24 23:59 23:59 23:59 23:59 Intake Total 190 / 190 Output Total 0 / 0 Balance 190 / 190 Weight 181 lb 170 lb GI: Present tenderness Comments:: Normoactive bowel sounds, soft, tenderness in the epigastrium and periumbilical region, no masses Results Labs 05/08/24 04:36 05/08/24 04:36 Labs: Laboratory Results - last 24 hr 05/07/24 11:00: Troponin I 0.02 05/07/24 16:32: WBC 12.8 H, RBC 4.78, Hgb 14.7, Hct 44.0, MCV 92.1, MCH 30.8, MCHC 33.4, RDW 14.1, Plt Count 183, MPV 11.8 H, Neut % (Auto) 78.3, Lymph % (Auto) 15.1, [place] % (Auto) 4.9, Eos % (Auto) 1.2, Baso % (Auto) 0.2, Neut # (Auto) 10.0 H, Lymph # (Auto) 1.9, [place] # (Auto) 0.6, Eos # (Auto) 0.2, Baso # (Auto) 0.0, PT 11.1, INR 1.01, APTT 25.5, Sodium 139, Potassium 3.6, Chloride 102, Carbon Dioxide 30, Anion Gap 10.6, BUN 16, Creatinine 1.10, Estimated Creat Clear 56, Estimated GFR 63, Est GFR ( Amer) 77, Glucose 150 H, Calcium 8.8, Total Bilirubin 1.7 H, AST 476 H*, ALT 326 H*, Alkaline Phosphatase 430 H, Troponin I 0.02, NT-Pro-B Natriuret Pep 1210 H, Total Protein 6.9, Albumin 4.0, Globulin 2.9, Albumin/Globulin Ratio 1.4, Lipase 67285 H, Acetaminophen < 10 L 05/07/24 16:39: VBG pH 7.33 05/07/24 17:05: Lactate 1.8 05/07/24 18:30: Troponin I 0.02 05/08/24 04:36: WBC 7.3 D, RBC 4.35 L, Hgb 13.2 L D, Hct 39.7 L, MCV 91.3, MCH 30.3, MCHC 33.2, RDW 14.0, Plt Count 147, MPV 11.7 H, Neut % (Auto) 69.9, Lymph % (Auto) 19.0, [place] % (Auto) 6.7, Eos % (Auto) 3.7, Baso % (Auto) 0.4, Neut # (Auto) 5.1, Lymph # (Auto) 1.4, [place] # (Auto) 0.5, Eos # (Auto) 0.3, Baso # (Auto) 0.0, Sodium 138, Potassium 3.9, Chloride 106, Carbon Dioxide 28, Anion Gap 7.9, BUN 14, Creatinine 1.00, Estimated Creat Clear 58, Estimated GFR 71, Est GFR ( Amer) 86, Glucose 92 D, Calcium 8.3 L, Total Bilirubin 2.1 H, AST 626 H* D, ALT 478 H*, Alkaline Phosphatase 388 H, Total Protein 5.9 L, A lbumin 3.3 L D, Globulin 2.6, Albumin/Globulin Ratio 1.3, Amylase 661 H*, Lipase 3656 H Assessment and Plan *Assessment and plan (1) Biliary acute pancreatitis: Status: Acute Category: Medical Code(s): K85.10 - Biliary acute pancreatitis without necrosis or infection (2) Choledocholithiasis: Status: Acute Category: Medical Code(s): K80.50 - Calculus of bile duct without cholangitis or cholecystitis without obstruction (3) Epigastric pain: Status: Acute Category: Medical Code(s): R10.13 - Epigastric pain (4) Right upper quadrant abdominal pain: Status: Acute Category: Medical Code(s): R10.11 - Right upper quadrant pain (5) Jaundice: Status: Acute Category: Medical Code(s): R17 - Unspecified jaundice Plan 1. Acute biliary pancreatitis with spike in liver chemistries and elevated bilirubin. I do strongly suspect choledocholithiasis. It is estimated that 5 to 20 percent of patients with gallstones prior to gallbladder surgery will have choledocholithiasis at the time of their gallbladder removal/cholecystectomy, with the incidence increasing with age. Complications of choledocholithiasis include acute pancreatitis and acute cholangitis (infection within the bile duct). It is very important to remove the stones within the bile duct to prevent these complications. I would recommend cardiac clearance prior to ERCP. If he is not clear today for ERCP, we can await and do tomorrow.
--- NOTE | 2024-05-08 15:11 | EXP.CARD.CON ---
History of Present Illness History of Present Illness Consult date: 05/08/24 Requesting physician: Clayton Avalos Consult reason: pre-op evaluation Chief complaint: Abd Pain, Vomiting, pre-op eval for ERCP Additional Medical History:: 1. 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 LVEDP 10 mmHg. Mild circumflex and RCA disease. B. LifeVest placed C. GDMT started as blood pressure allows 2. Spinal canal stenosis History of present illness: 88-year-old white male recently found to have ischemic cardiomyopathy during preop workup for laminectomy was admitted yesterday due to acute onset of indigestion and severe abdominal pain after eating a egg and cheese biscuit sandwich. ER workup showed evidence of pancreatitis and transaminitis with presumed gallstone as etiology. GI has been consulted and has plan to do an ERCP. Cardiology has been consulted for cardiac evaluation/preop recommendations. Patient denies any chest pain, pressure or tightness. He continues to wear his LifeVest. He denies any shortness of breath or CHF symptoms. BNP elevated at 1210 but clinically no evidence of CHF with normal BUN and creatinine with chest x-ray negative for any acute cardiopulmonary abnormality. Limited echo today confirms EF around 30% (unchanged compared to prior imaging studies). Discussed with Dr. Lai. [facility] Disclaimer: The information contained in this section may have been updated after the patient was seen, as this information can be updated by other users. Medical History Syncope Acute [place] Vagal reaction Bradycardic cardiac arrest ST elevation [place] (STEMI) Elevated brain natriuretic peptide (BNP) level Encounter for pre-operative cardiovascular clearance Weight loss Early satiety Loss of appetite Bloating Constipation Diarrhea Change in bowel habits Sacroiliitis Right leg pain Right hip pain Chronic pain syndrome Lumbar spinal stenosis Degenerative disc disease, lumbar Lumbar radiculopathy Bulging disc Degenerative disc disease Cholelithiasis Hypertension Cholecystitis History of myocardial infarction elevated troponin Dyspnea on exertion Pleural effusion, bilateral Chronic pain HTN (hypertension) Surgical History Status post laparoscopic cholecystectomy Acute cholecystitis without calculus History of left cataract surgery History of cholecystectomy Family History Other Unknown family medical history Social History (Updated 05/07/24 @ 21:46 by Annia Blanco RN) Smoking Status: Never smoker second hand exposure: No alcohol intake: never current occupational status: retired and other Travel in the last 8 weeks: None household members: spouse housing: house 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 current occupational exposures/hazards: No caffeine: Yes Have you lived/traveled outside US in past 30 days?: No Contact w/someone who lives/traveled outside US past 30 days?: No Exposure to someone with infectious disease in past 14 days?: No Do you have a fever (greater than 100.4 F or 38 C)?: No Have you tested positive for COVID-19: No Exposed to someone with COVID-19 in past 14 days?: No Do you have a sore throat?: No Do you have a cough?: No Do you have any weakness?: No Do you have any diarrhea?: No Are you experiencing any unusual bleeding?: No Do you have any muscle aches/pain?: No Do you have any abdominal pain?: Yes Are you experiencing loss of taste or smell?: No Review of Systems Review of Systems Review of systems:: pertinent systems reviewed and negative unless documented below Constitutional Constitutional: Denies frequent falls and Denies headache(s) ENT Ears, Nose, Mouth, and Throat: Denies headache(s) and Denies vertigo *Neurologic Neurologic: Denies confusion, Denies frequent falls, Denies headache(s) and Denies vertigo Psychiatric Psychiatric: Denies confusion Exam Data for Last 24 hours Vital signs and Labs for Last 24 Hours: Temp Pulse Resp BP Pulse Ox O2 Del Method 98.6 F 45 L 18 91/56 L 99 Room Air 05/08/24 11:58 05/08/24 12:00 05/08/24 11:58 05/08/24 11:58 05/08/24 11:58 05/08/24 13:00 Laboratory Results - last 24 hr 05/07/24 11:00: Troponin I 0.02 05/07/24 16:32: WBC 12.8 H, RBC 4.78, Hgb 14.7, Hct 44.0, MCV 92.1, MCH 30.8, MCHC 33.4, RDW 14.1, Plt Count 183, MPV 11.8 H, Neut % (Auto) 78.3, Lymph % (Auto) 15.1, [place] % (Auto) 4.9, Eos % (Auto) 1.2, Baso % (Auto) 0.2, Neut # (Auto) 10.0 H, Lymph # (Auto) 1.9, [place] # (Auto) 0.6, Eos # (Auto) 0.2, Baso # (Auto) 0.0, PT 11.1, INR 1.01, APTT 25.5, Sodium 139, Potassium 3.6, Chloride 102, Carbon Dioxide 30, Anion Gap 10.6, BUN 16, Creatinine 1.10, Estimated Creat Clear 56, Estimated GFR 63, Est GFR ( Amer) 77, Glucose 150 H, Calcium 8.8, Total Bilirubin 1.7 H, AST 476 H*, ALT 326 H*, Alkaline Phosphatase 430 H, Troponin I 0.02, NT-Pro-B Natriuret Pep 1210 H, Total Protein 6.9, Albumin 4.0, Globulin 2.9, Albumin/Globulin Ratio 1.4, Lipase 83248 H, Acetaminophen < 10 L 05/07/24 16:39: VBG pH 7.33 05/07/24 17:05: Lactate 1.8 05/07/24 18:30: Troponin I 0.02 05/08/24 04:36: WBC 7.3 D, RBC 4.35 L, Hgb 13.2 L D, Hct 39.7 L, MCV 91.3, MCH 30.3, MCHC 33.2, RDW 14.0, Plt Count 147, MPV 11.7 H, Neut % (Auto) 69.9, Lymph % (Auto) 19.0, [place] % (Auto) 6.7, Eos % (Auto) 3.7, Baso % (Auto) 0.4, Neut # (Auto) 5.1, Lymph # (Auto) 1.4, [place] # (Auto) 0.5, Eos # (Auto) 0.3, Baso # (Auto) 0.0, Sodium 138, Potassium 3.9, Chloride 106, Carbon Dioxide 28, Anion Gap 7.9, BUN 14, Creatinine 1.00, Estimated Creat Clear 58, Estimated GFR 71, Est GFR ( Amer) 86, Glucose 92 D, Calcium 8.3 L, Total Bilirubin 2.1 H, AST 626 H* D, ALT 478 H*, Alkaline Phosphatase 388 H, Total Protein 5.9 L, Albumin 3.3 L D, Globulin 2.6, Albumin/Globulin Ratio 1.3, Amylase 661 H*, Lipase 3656 H I & O for Last 24 hours: Intake & Output 05/06/24 05/07/24 05/08/24 05/09/24 11:59 11:59 11:59 11:59 Intake Total 190 / 190 Output Total 0 / 0 0 / 0 Balance 190 / 190 0 / 0 Weight 170 lb Constitutional Constitutional: no acute distress *Routine Respiratory Exam Respiratory: Present CTA bilaterally *Routine Cardiovascular Exam Cardiovascular: Present RRR; Absent murmur, gallop or rubs *Routine Extremities Exam Extremities: Absent edema *Routine Neurological Exam Neurological: Present alert, oriented X3 and CN II-XII intact Meds Home Medications and Allergies Home Medications ?Medication ?Instructions ?Recorded ?Confirmed ?Type B-complex with vitamin C 1 tab PO DAILY 03/30/24 05/07/24 History cholecalciferol (vitamin D3) 25 25 mcg PO DAILY 03/30/24 05/07/24 History mcg (1,000 unit) capsule aspirin 81 mg tablet,delayed 81 mg PO DAILY #30 tabs 04/13/24 05/07/24 Rx release atorvastatin 40 mg tablet 40 mg PO DAILY #30 tabs 04/13/24 05/07/24 Rx furosemide 20 mg tablet (Lasix) 20 mg PO DAILY #90 tabs 04/17/24 05/07/24 Rx empagliflozin 10 mg tablet 10 mg PO DAILY #30 tabs 04/18/24 05/07/24 Rx (Jardiance) sacubitril 49 mg-valsartan 51 mg 1 tab PO BID #60 tabs 04/24/24 05/07/24 Rx tablet (Entresto) spironolactone 25 mg tablet 25 mg PO DAILY 05/08/24 05/08/24 History New Prescriptions to Start Prescriptions: Allergies Allergy/AdvReac Type Severity Reaction Status Date / Time No Known Allergies Allergy Verified 01/27/25 09:50 Assessment and Plan *Assessment and plan (1) Transaminitis: Status: Acute Category: Medical Code(s): R74.01 - Elevation of levels of liver transaminase levels (2) Biliary acute pancreatitis: Status: Acute Qualifiers: Acute pancreatitis complication: no infection or necrosis Qualified Code(s): K85.10 - Biliary acute pancreatitis without necrosis or infection Category: Medical Code(s): K85.10 - Biliary acute pancreatitis without necrosis or infection (3) Choledocholithiasis: Status: Acute Category: Medical Code(s): K80.50 - Calculus of bile duct without cholangitis or cholecystitis without obstruction (4) Epigastric pain: Status: Acute Category: Medical Code(s): R10.13 - Epigastric pain (5) Right upper quadrant abdominal pain: Status: Acute Category: Medical Code(s): R10.11 - Right upper quadrant pain (6) Heart failure with reduced ejection fraction: Status: Acute Category: Medical Code(s): I50.20 - Unspecified systolic (congestive) heart failure (7) CAD (coronary artery disease): Status: Acute Qualifiers: Coronary Disease-Associated Artery/Lesion type: [place] artery [place] vs. transplanted heart: nond[place]ton heart Associated angina: without angina Qualified Code(s): I25.10 - Atherosclerotic heart disease of nond[place] coronary artery without angina pectoris Category: Medical Code(s): I25.10 - Atherosclerotic heart disease of [place] coronary artery without angina pectoris (8) Abnormal echocardiogram: Status: Acute Category: Medical Code(s): R93.1 - Abnormal findings on diagnostic imaging of heart and coronary circulation (9) Cardiomyopathy: Status: Acute Qualifiers: Cardiomyopathy type: other Qualified Code(s): I42.8 - Other cardiomyopathies Category: Medical Code(s): I42.9 - Cardiomyopathy, unspecified Plan 1. Abdominal pain with acute pancreatitis/transaminitis secondary to choledocholithiasis with biliary stone -Planning for ERCP 2. HFrEF/ischemic cardiomyopathy, discovered in March 2024 but not felt to be an acute DE at that time due to aneurysmal dilation of the LV noted on cath and echo. -Patient is on GDMT as tolerated (Entresto, spironolactone, Jardiance, Lasix, atorvastatin and aspirin) -Limited echo this admission confirms EF 30%, stable Patient is a high risk but acceptable to proceed with planned ERCP. LifeVest may be removed with use of ZOLL defibrillator pads perioperatively. Postoperatively, resume LifeVest.
--- NOTE | 2024-05-08 15:54 | [facility].PROCNOTE ---
[facility] Procedure Note Date: 05/08/24 Time: 16:54 Procedure Note:: ERCP procedure Report: Endoscopic retrograde cholangiography with biliary sphincterotomy and balloon sweep extraction of common bile duct stones Endoscopist: Negrito Irving II, MD Referring Physician: Clayton Avalos MD Date of Procedure: May 08, 2024 Equipment: Olympus 180 side viewing endoscope duodenoscope Sedation: MAC sedation Indication: Mr. Cross is an 88-year-old male admitted for abdominal pain and here for ERCP secondary to suspected choledocholithiasis and biliary pancreatitis. The patient reports intermittent bouts of abdominal pain for months. This would usually last for 15 or 20 minutes and go away. Yesterday, he had a more intense bout of abdominal pain that persisted. He came to the emergency department yesterday and had CT scan of the abdomen and labs. His lab work showed a spike in liver chemistries with AST 476, ALT 326 and total bilirubin 1.7. His alkaline phosphatase was 430. His amylase today was 661 and his lipase yesterday was 14,186. His total bilirubin today is 2.1 and AST and ALT belia (626 and 478 respectively). Imaging of the abdomen showed mural wall thickening of the mid stomach with a normal-appearing duodenum. There was mild constipation. There was also a hiatal hernia. There appeared to be small nodular focus adjacent to the right lateral distal esophagus. The patient did have cholecystectomy several years ago (Mahendra Poon M.D.) for gallstones. On CAT scan the bile duct was mildly dilated to 10 mm but there was no visible choledocholithiasis. The patient does have intermittent episodes of severe diarrhea. The patient reports no prior episodes of pancreatitis or jaundice. The patient reports no fever but still has some epigastric abdominal pain. He reports no alcohol. Procedure: Prior to the procedure, a history and physical exam was performed, and patient's medications and allergies were reviewed. The risks, benefits and alternatives of the sedation and procedure were discussed with the patient. All questions were answered and informed consent was obtained. The patient was brought to the fluoroscopic radiology room. Patient identification and proposed procedure were verified by the physician and the nurse. The patient was placed in a swimmer's position between left lateral decubitus and prone position and the scope was passed under direct vision. Throughout the procedure, the patient's blood pressure, pulse, and oxygen saturations were monitored continuously. The ERCP was accomplished without difficulty. The patient tolerated the procedure well. Findings: The duodenoscope was passed directly into the upper esophagus and advanced to the second portion of the duodenum. The common bile duct was selectively cannulated with a guidewire and cannula. The cholangiogram showed for filling defects in the mid and distal common bile duct with a 10 mm common bile duct and very mild intrahepatic biliary ductal dilation. The cystic duct stump was normal. A 9 to 10 mm biliary sphincterotomy was performed. Next, a 9 to 12 mm sweeping balloon was placed at the bifurcation and the initial balloon sweep yielded 3 yellowish-white pigmented (cholesterol stones) biliary stones. A second sweep yielded a fourth cholesterol stone. These were approximately 7 mm in size. A repeat cholangiogram was performed subsequent to sweep with sweeping balloon pneumatically filled at ampulla and there was a clean cholangiogram with no further filling defects identified. The pancreatic duct was not cannulated intentionally. Impression: 1. Choledocholithiasis status post biliary sphincterotomy and balloon extraction of 4 biliary cholesterol stones (approximate size 7 to 8 mm each) Plan: The patient should have clinical improvement with resolution of symptoms and normalization of the biliary chemistries. I will discuss the findings with the patient and family.
--- NOTE | 2024-05-08 15:59 | P.PNANES_ITS ---
[facility] Disclaimer: The information contained in this section may have been updated after the patient was seen, as this information can be updated by other users. Medical History Syncope Acute AL Vagal reaction Bradycardic cardiac arrest ST elevation AL (STEMI) Elevated brain natriuretic peptide (BNP) level Encounter for pre-operative cardiovascular clearance Weight loss Early satiety Loss of appetite Bloating Constipation Diarrhea Change in bowel habits Sacroiliitis Right leg pain Right hip pain Chronic pain syndrome Lumbar spinal stenosis Degenerative disc disease, lumbar Lumbar radiculopathy Bulging disc Degenerative disc disease Cholelithiasis Hypertension Cholecystitis History of myocardial infarction elevated troponin Dyspnea on exertion Pleural effusion, bilateral Chronic pain HTN (hypertension) Surgical History Status post laparoscopic cholecystectomy Acute cholecystitis without calculus History of left cataract surgery History of cholecystectomy Family History Other Unknown family medical history Social History (Updated 05/07/24 @ 21:46 by Annia Blanco RN) Smoking Status: Never smoker second hand exposure: No alcohol intake: never substance use type: denies use current occupational status: retired and other Travel in the last 8 weeks: None household members: spouse housing: house current occupation: [employer]IST current occupational exposures/hazards: No caffeine: Yes [facility] Anesthesia Checklist Patient Identification Patient Identification: Arm Band and Verbal (Name & ) Structural Data Admitted From: Inpatient (RM [id number]) Planned Operative Procedure/s: ERCP Consent for Planned Operative Procedure(s) Verified: Yes Verified Documents: Surgical Consent and History and Physical NPO Status Verified Time NPO: 00:00 Chart Verification Results Verified: CBC, BMP, PT, PTT, INR, ECG and Chest Xray Additional verifications Patient : No Anesthesia Reactions: No Hx Blood Transfusions: No Blood Transfusion Reaction: No Cardiovascular Assessment Heart Sounds: S1 & S2 Pulse Rhythm: Irregular Peripheral Edema: No Airway Assessment Mallampati Score:: Class II C-Spine Mobility Assessed: Yes (FROM demonstrated) TMJ Mobility Assessed: Yes Dentition: Poor Dentition (+Carries. Nothing loose per pt.) Neurological Assessment Level of Consciousness: Awake, Alert, Appropriate and Follows Commands Hx Seizures: No Numbness or tingling in extremities: No Anesthesia Plan Anesthesia Risk discussed: Yes Anesthesia Plan: Verified ASA Class: IV Anesthesia Type: General
--- NOTE | 2024-05-08 16:13 | HMH.ITSTN ---
called nurse she stated they just took patient down for ercp and that she was going to cancel the mrcp
--- NOTE | 2024-05-08 17:12 | EXP.ANES.I ---
[facility] Anesthesia Record Part I Anesthesia Record I Intake, IV Amount: 400 Hydration: Adequate Estimated blood loss (mL): 5 Urine output (mL): 0 Blood Products used (#): none Blood Pressure: 123/83 SaO2: 96 Pulse Rate: 74 Airway Patency: Patent Respiratory Rate: 16 Temperature: 97.3 F Patient is:: Awake (Talking) and Stable Stable to PACU at:: 17:08
--- NOTE | 2024-05-08 18:31 | PC.NURSE ---
Pt A&OX4. Pt NPO most of day awaiting consult with GI and cards. No c/o pain throughout shift. Pt went down for ERCP today arrived back on floor at 1725. HR has been leila but is pt baseline. Pt now on clear liquid diet and is tolerating it well. Pt sitting at bedside with family with no complaints at this time. Lifevest in place. call light within reach.
[2024-05-09] VITALS (7 sets, daily range): BP systolic 86–114; BP diastolic 47–79; PULSE 40–80; RESP 18–20; TEMP 36.4–36.9; O2SAT 96–100; BMI 24.3
--- NOTE | 2024-05-09 03:45 | PC.NURSE ---
Patient is alert and oriented x4. Dr Avalos consulted the patient at the bedside yesterday evening (at shift change). Patient was observed to have eyes closed, respirations even and unlabored on room air, and no apparent distress for the majority of the night. Post-op vitals were completed during this shift; soft blood pressures and bradycardia (also on telemetry) was observed this shift. Auscultation of his heart, lungs, and bowels were within normal findings. He has been self-turning in bed and ambulates without difficulties. Patient has not had any complaints (no nausea/vomiting, no pain, no discomfort) this shift. He has been tolerating a clear liquid diet. Life vest has remained in place. Patient was not given any medications per MAR for this shift. At this time, the patient is resting in bed. No acute changes noted thus far. Call light within reach.
[2024-05-09 06:31] LABS: Albumin Level 3.1 g/dl (3.5-5.0); Chloride 106 mmol/L (98-107); Sodium 136 mmol/L (136-145)
[2024-05-09 06:32] LABS: Potassium 3.5 mmoL/L (3.5-5.1)
[2024-05-09 06:34] LABS: Alanine Aminotransferase 284 U/L (12-78); Albumin/Globulin Ratio 1.2 (1.1-1.8); Alkaline Phosphatase 314 U/L (38-126); Amylase 176 U/L (30-110); Anion Gap 9.5 mEq/L (5-15); Aspartate Amino Transferase 209 U/L (17-59); Bilirubin,Total 0.9 mg/dl (0.2-1.3); Blood Urea Nitrogen 11 mg/dl (9-20); Carbon Dioxide 24 mmol/L (22.0-30.0); Creatinine Clearance Estimated 58 mL/min (50-200); Estimated Glomerular Filt Rate 80 ml/min (>60); GFR (African American) 97 ML/MIN (>60); Globulin 2.5 g/dL (1.3-3.2); Glucose 89 mg/dl (74-100); Lipase 124 U/L (23-300); Total Protein,Serum 5.6 g/dl (6.3-8.2)
[2024-05-09 07:15] LABS: HBsAg Screen Negative (Negative); HCV Ab Non Reactive (Non Reactive); Hep A Ab, IGM Negative (Negative); Hep B Core Ab, IgM Negative (Negative)
--- NOTE | 2024-05-09 08:01 | EXP.PN ---
Subjective *Date: 05/09/24 *Time: 08:01 Interval history: Patient awake and alert without abdominal complaints. He is tolerating clear liquids. Exam Data for Last 24 hours Vital signs and Labs for Last 24 Hours: Temp Pulse Resp BP Pulse Ox O2 Del Method 97.7 F 70 18 88/58 L 96 Room Air 05/09/24 04:00 05/09/24 04:00 05/09/24 04:00 05/09/24 04:00 05/09/24 04:00 05/09/24 06:45 Laboratory Results - last 24 hr 05/07/24 18:30: Hepatitis A IgM Ab Negative, Hep Bs Antigen Negative, Hep B Core IgM Ab Negative, Hepatitis C Antibody Non reactive, HCV RNA PCR Test Info Comment 05/09/24 05:59: Sodium 136, Potassium 3.5, Chloride 106, Carbon Dioxide 24, Anion Gap 9.5, BUN 11, Creatinine 0.90, Estimated Creat Clear 58, Estimated GFR 80, Est GFR ( Amer) 97, Glucose 89, Calcium 8.0 L, Total Bilirubin 0.9, AST 209 H D, ALT 284 H D, Alkaline Phosphatase 314 H, Total Protein 5.6 L, Albumin 3.1 L, Globulin 2.5, Albumin/Globulin Ratio 1.2, Amylase 176 H, Lipase 124 I & O for Last 24 hours: Intake & Output 05/06/24 05/07/24 05/08/24 05/09/24 23:59 23:59 23:59 23:59 Intake Total 590 / 730 140 / 140 Output Total 0 / 0 0 / 0 Balance 590 / 730 140 / 140 Weight 181 lb 170 lb 170 lb *Routine Abdominal Exam Abdominal: Present soft Comments: Normoactive bowel sounds, soft, minimal tenderness, no rebound or guarding, no masses Assessment and Plan *Assessment and plan (1) Choledocholithiasis: Status: Acute Category: Medical Code(s): K80.50 - Calculus of bile duct without cholangitis or cholecystitis without obstruction (2) Biliary acute pancreatitis: Status: Acute Qualifiers: Acute pancreatitis complication: no infection or necrosis Qualified Code(s): K85.10 - Biliary acute pancreatitis without necrosis or infection Category: Medical Code(s): K85.10 - Biliary acute pancreatitis without necrosis or infection (3) Gallstone pancreatitis: Status: Acute Category: Medical Code(s): K85.10 - Biliary acute pancreatitis without necrosis or infection Plan 1. Gallstone pancreatitis?choledocholithiasis with associated spike in transaminases, bilirubin and pancreatic chemistries. All of his labs including pancreatic and biliary chemistries are improving. The patient is clinically improving. Yesterday ERCP showed 4 common bile duct stones that were extracted. He is tolerating clear liquids. I would advance diet today and if he continues to improve, he may be discharged later today. 2. Marked obstipation. The patient does have larger fecal burden on scan. He does get constipation that alternates with significant diarrhea that occurs intermittently. I do feel that this is buildup of colonic burden and fecal bacterial overgrowth of alex. I would recommend that he resume the fiber bowel regimen (MiraLAX plus Konsyl twice daily). The patient is due for colonoscopy and I would recommend that this be scheduled as an outpatient.
--- NOTE | 2024-05-09 08:08 | EXP.ACUTE.PN ---
Subjective *Date: 05/09/24 *Time: 08:52 Interval history: Pt Had a ERCP endoscopic retrograde cholangiogram with biliary sphincterectomy and balloon sweep extraction of common bile duct stones yesterday by Dr. Irving on 05/08/2024. Patient tolerated the procedure well. Laboratory data today shows normal normal electrolytes and renal function AST and ALT have decreased to 209/284 respectively with a decrease also on alkaline phosphatase to 314. Total bilirubin is normal today. Amylase has decreased from 6 61-1 76 and lipase has decreased from 3656 down to 124. Patient states he feels well today. He has had no pain and no nausea he has tolerated clear liquids. He denies chest pain and shortness of breath. He did sleep- he thinks about 8 hours last night. He is ready to go home. Blood pressure has been low ranging from 107/57 to 88/58. Heart rate ranged from 50-70. Sinus rhythms. Bowels have not moved. He is voiding QS Medical Exam Vital signs and Labs for Last 24 Hours: Vital Signs Temp Pulse Pulse Resp BP BP Pulse Ox 05/09/24 06:45 05/09/24 05:00 05/09/24 04:00 70 05/09/24 04:00 97.7 F 70 18 88/58 L 96 05/09/24 03:00 05/09/24 01:00 05/09/24 00:10 50 L 18 103/47 L 97 05/09/24 00:00 60 05/08/24 23:10 57 L 16 102/62 L 99 05/08/24 23:00 05/08/24 22:10 79 18 102/58 L 98 05/08/24 21:10 97.5 F L 64 17 93/68 L 100 05/08/24 21:00 05/08/24 20:10 46 L 18 107/57 L 98 05/08/24 20:00 48 L 17 99 05/08/24 20:00 60 05/08/24 19:40 66 19 107/57 L 98 05/08/24 19:10 45 L 18 96/57 L 97 05/08/24 19:00 05/08/24 18:40 43 L 18 122/52 L 99 05/08/24 18:10 45 L 21 129/73 99 05/08/24 17:55 50 L 21 108/56 L 98 05/08/24 17:40 46 L 19 91/56 L 100 05/08/24 17:33 60 16 110/68 96 05/08/24 17:25 98.3 F 62 18 107/70 L 99 05/08/24 17:23 61 16 111/63 99 05/08/24 17:14 97.3 F L 74 16 123/83 05/08/24 17:13 60 16 109/60 L 96 05/08/24 17:03 97.3 F L 68 16 123/83 97 05/08/24 13:00 05/08/24 12:00 45 L 05/08/24 11:58 98.6 F 46 L 18 91/56 L 99 05/08/24 11:00 05/08/24 09:00 O2 Del Method 05/09/24 06:45 Room Air 05/09/24 05:00 Room Air 05/09/24 04:00 05/09/24 04:00 Room Air 05/09/24 03:00 Room Air 05/09/24 01:00 Room Air 05/09/24 00:10 Room Air 05/09/24 00:00 05/08/24 23:10 Room Air 05/08/24 23:00 Room Air 05/08/24 22:10 Room Air 05/08/24 21:10 Room Air 05/08/24 21:00 Room Air 05/08/24 20:10 Room Air 05/08/24 20:00 Room Air 05/08/24 20:00 05/08/24 19:40 Room Air 05/08/24 19:10 Room Air 05/08/24 19:00 Room Air 05/08/24 18:40 Room Air 05/08/24 18:10 Room Air 05/08/24 17:55 Room Air 05/08/24 17:40 Room Air 05/08/24 17:33 Room Air 05/08/24 17:25 Room Air 05/08/24 17:23 Room Air 05/08/24 17:14 05/08/24 17:13 Room Air 05/08/24 17:03 Room Air 05/08/24 13:00 Room Air 05/08/24 12:00 05/08/24 11:58 Room Air 05/08/24 11:00 Room Air 05/08/24 09:00 Room Air Intake and Output 02/10/25 02/11/25 02/11/25 19:59 03:59 11:59 Intake Total 400 / 400 140 / 540 Output Total 0 / 0 0 / 0 0 / 0 Balance 400 / 400 140 / 540 0 / 540 Intake: Intake, Oral Amount 140 / 140 Intake, Total IV Amount 400 / 400 Output: Output, Urine Amount 0 / 0 0 / 0 0 / 0 Other: Number of Unmeasured Voids 1 Number of Bowel Movements 1 Weight 170 lb Patient Weight 05/09/24 11:59 Weight 170 lb Laboratory Results - last 24 hr 05/07/24 18:30: Hepatitis A IgM Ab Negative, Hep Bs Antigen Negative, Hep B Core IgM Ab Negative, Hepatitis C Antibody Non reactive, HCV RNA PCR Test Info Comment 05/09/24 05:59: Sodium 136, Potassium 3.5, Chloride 106, Carbon Dioxide 24, Anion Gap 9.5, BUN 11, Creatinine 0.90, Estimated Creat Clear 58, Estimated GFR 80, Est GFR ( Amer) 97, Glucose 89, Calcium 8.0 L, Total Bilirubin 0.9, AST 209 H D, ALT 284 H D, Alkaline Phosphatase 314 H, Total Protein 5.6 L, Albumin 3.1 L, Globulin 2.5, Albumin/Globulin Ratio 1.2, Amylase 176 H, Lipase 124 I & O for Labs for Last 24 Hours: Intake & Output 05/06/24 05/07/24 05/08/24 05/09/24 11:59 11:59 11:59 11:59 Intake Total 190 / 190 540 / 540 Output Total 0 / 0 0 / 0 Balance 190 / 190 540 / 540 Weight 170 lb 170 lb Constitutional: Present no acute distress Comment:: Sitting up in a comfort chair at bedside watching TV. He has completed clear liquid diet. Respiratory: Present CTA bilaterally (Anteriorly and posteriorly) Cardiac: Present Regular Rate Comment:: Patient continues to wear LifeVest GI: Present soft and normal bowel sounds; Absent distention, tenderness or guarding Extremities: Present normal inspection; Absent tenderness or edema Neuro: Present alert, awake and oriented x 3 Assessment and Plan *Assessment and plan (1) Choledocholithiasis: Status: Acute Category: Medical Code(s): K80.50 - Calculus of bile duct without cholangitis or cholecystitis without obstruction (2) Biliary acute pancreatitis: Status: Acute Qualifiers: Acute pancreatitis complication: no infection or necrosis Qualified Code(s): K85.10 - Biliary acute pancreatitis without necrosis or infection Category: Medical Code(s): K85.10 - Biliary acute pancreatitis without necrosis or infection (3) Gallstone pancreatitis: Status: Acute Category: Medical Code(s): K85.10 - Biliary acute pancreatitis without necrosis or infection (4) Transaminitis: Status: Acute Category: Medical Code(s): R74.01 - Elevation of levels of liver transaminase levels (5) Epigastric pain: Status: Acute Category: Medical Code(s): R10.13 - Epigastric pain (6) Right upper quadrant abdominal pain: Status: Acute Category: Medical Code(s): R10.11 - Right upper quadrant pain (7) Heart failure with reduced ejection fraction: Status: Acute Category: Medical Code(s): I50.20 - Unspecified systolic (congestive) heart failure (8) CAD (coronary artery disease): Status: Acute Qualifiers: Associated angina: without angina Coronary Disease-Associated Artery/Lesion type: [place] artery [place] vs. transplanted heart: [place] heart Qualified Code(s): I25.10 - Atherosclerotic heart disease of [place] coronary artery without angina pectoris Category: Medical Code(s): I25.10 - Atherosclerotic heart disease of [place] coronary artery without angina pectoris (9) Abnormal echocardiogram: Status: Acute Category: Medical Code(s): R93.1 - Abnormal findings on diagnostic imaging of heart and coronary circulation (10) Cardiomyopathy: Status: Acute Qualifiers: Cardiomyopathy type: other Qualified Code(s): I42.8 - Other cardiomyopathies Category: Medical Code(s): I42.9 - Cardiomyopathy, unspecified Plan Blood pressure has been low and will hold cardiac meds for now. Patient has been advanced to a low-fat diet. Have started MiraLAX and Konsyl. Dr. Avalos entry - Saw patient, agree with above note. He feels much better today, will give 1 liter of IV NS today due to low BP.
[2024-05-09 08:34] LABS: Basophils % 0.5 % (0.1-2.0); Eosinophils # 0.4 K/mm3 (0.0-0.4); Eosinophils % 5.4 % (0.1-12.0); Hematocrit 38.6 % (42.0-52.0); Hemoglobin 12.6 g/dL (14.1-18.0); Lymphocytes # 1.4 K/mm3 (0.7-4.5); Mean Corpuscular HGB Conc 32.6 g/dL (31.8-35.4); Mean Corpuscular Hemoglobin 29.7 pg (27.0-31.2); Mean Platelet Volume 12.5 fl (7.4-10.4); Monocytes # 0.6 K/mm3 (0.1-1.0); Monocytes % 7.4 % (1.7-9.3); Neutrophils # 5.2 K/mm3 (1.8-7.8); Neutrophils % 68.3 % (37.0-80.0); Platelet Count 139 K/mm3 (142-424); Red Blood Count 4.24 M/mm3 (4.60-6.20); Red Cell Distribution Width 14.4 % (11.5-17.5); White Blood Count 7.6 K/mm3 (4.8-10.8)
[2024-05-09] MEDS: POLYETHYLENE GLYCOL 3350 17 GM PACKET PO (09:00)
[2024-05-09] MEDS: 0.9 % SODIUM CHLORIDE 1000ML 1,000 ML 125 ML IV (09:00)
[2024-05-09] MEDS: PSYLLIUM UD PACKET 1 EACH PO (09:00)
--- NOTE | 2024-05-09 18:19 | PC.NURSE ---
MD ordered fluids for pt low BP this morning, BP still remains low this evening. MD aware. Pt has no complaints besides wanting to go home. Pt given shower this shift. Family at bedside. Call light in reach.
[2024-05-10] VITALS: BP 111/54; PULSE 40; PULSE 48; RESP 18; TEMP 36.6; O2SAT 99
--- NOTE | 2024-05-10 02:32 | PC.NURSE ---
Patient alert and oriented x4. Patient was observed to have eyes closed, respirations even and unlabored on room air, and no apparent distress for the majority of the night. He has been up to the chair and showered earlier this shift; patient continues to ambulate independently without difficulties. Auscultation of heart, bowels, and lungs remain within normal findings. Patient has been tolerating a low fat diet (advanced from liquids during previous shift). He has not had any complaints this shift, stating that he feels great overall. Blood pressures remain a little soft (however, MAP improved compared with previous shifts) and heart rate bradycardic (sinus bradycardia on telemetry). Life vest remains in place. Patient was not given any scheduled/PRN medications per MAY for this shift. At this time, the patient is resting in bed. No acute changes noted thus far. Call light within reach.
[2024-05-10 04:00] VITALS: BP 115/75; PULSE 60; PULSE 86; RESP 16; TEMP 36.5; O2SAT 97; BMI 24.3
[2024-05-10 07:47] VITALS: BP 108/43; PULSE 64; RESP 18; TEMP 36.6; O2SAT 98
[2024-05-10 08:00] VITALS: PULSE 50
--- NOTE | 2024-05-10 08:11 | P.PN_ITS ---
Subjective *Date: 05/10/24 *Time: 09:08 Interval history: Patient is feeling well this am. He denies any pain. He is eating well. He was unable to sleep and is anxious to go home. Medical Exam Vital signs and Labs for Last 24 Hours: Vital Signs Temp Pulse Pulse Resp BP Pulse Ox O2 Del Method 05/10/24 08:02 Room Air 05/10/24 07:47 97.9 F 64 18 108/43 L 98 Room Air 05/10/24 06:30 Room Air 05/10/24 05:00 Room Air 05/10/24 04:00 60 05/10/24 04:00 97.7 F 86 16 115/75 97 Room Air 05/10/24 03:00 Room Air 05/10/24 01:00 Room Air 05/10/24 00:00 40 L 05/10/24 00:00 97.8 F 48 L 18 111/54 L 99 Room Air 05/09/24 23:00 Room Air 05/09/24 21:00 Room Air 05/09/24 20:00 50 L 18 97 Room Air 05/09/24 20:00 98.4 F 69 18 111/79 97 Room Air 05/09/24 20:00 50 L 05/09/24 18:57 Room Air 05/09/24 17:00 Room Air 05/09/24 16:00 80 05/09/24 16:00 97.7 F 58 L 19 99/51 L 98 Room Air 05/09/24 15:00 Room Air 05/09/24 13:00 Room Air 05/09/24 12:00 40 L 05/09/24 12:00 97.5 F L 48 L 20 114/69 100 Room Air 05/09/24 11:00 Room Air 05/09/24 09:00 Room Air Intake and Output 05/09/24 05/10/24 05/10/24 19:59 03:59 11:59 Intake Total 860 / 980 120 / 980 Output Total 0 / 0 0 / 0 0 / 0 Balance 860 / 980 120 / 980 0 / 980 Intake: Intake, Oral Amount 860 / 980 120 / 980 Output: Output, Urine Amount 0 / 0 0 / 0 0 / 0 Other: Number of Voids 0 Number of Unmeasured Voids 1 1 Weight 169 lb 8.215 oz Patient Weight 05/10/24 11:59 Weight 169 lb 8.215 oz Laboratory Results - last 24 hr 05/09/24 05:59: WBC 7.6, RBC 4.24 L, Hgb 12.6 L, Hct 38.6 L, MCV 91.0, MCH 29.7, MCHC 32.6, RDW 14.4, Plt Count 139 L, MPV 12.5 H, Neut % (Auto) 68.3, Lymph % (Auto) 18.0, Garza % (Auto) 7.4, Eos % (Auto) 5.4, Baso % (Auto) 0.5, Neut # ( Auto) 5.2, Lymph # (Auto) 1.4, Garza # (Auto) 0.6, Eos # (Auto) 0.4, Baso # (Auto) 0.0 I & O for Labs for Last 24 Hours: Intake & Output 05/07/24 05/08/24 05/09/24 05/10/24 11:59 11:59 11:59 11:59 Intake Total 190 / 190 1140 / 1140 980 / 980 Output Total 0 / 0 0 / 0 0 / 0 Balance 190 / 190 1140 / 1140 980 / 980 Weight 170 lb 170 lb 169 lb 8.215 oz Constitutional: Present no acute distress Comment:: Sitting up in a chair watching TV. Respiratory: Present CTA bilaterally (Anteriorly and posteriorly) Cardiac: Present Regular Rate Comment:: Patient continues to wear LifeVest GI: Present soft and normal bowel sounds; Absent distention, tenderness or guarding Extremities: Present normal inspection; Absent tenderness or edema Skin: Present intact Neuro: Present alert, awake and oriented x 3 Assessment and Plan *Assessment and plan (1) Choledocholithiasis: Status: Acute Category: Medical Code(s): K80.50 - Calculus of bile duct without cholangitis or cholecystitis without obstruction (2) Biliary acute pancreatitis: Status: Acute Qualifiers: Acute pancreatitis complication: no infection or necrosis Qualified Code(s): K85.10 - Biliary acute pancreatitis without necrosis or infection Category: Medical Code(s): K85.10 - Biliary acute pancreatitis without necrosis or infection (3) Gallstone pancreatitis: Status: Acute Category: Medical Code(s): K85.10 - Biliary acute pancreatitis without necrosis or infection (4) Transaminitis: Status: Acute Category: Medical Code(s): R74.01 - Elevation of levels of liver transaminase levels (5) Epigastric pain: Status: Acute Category: Medical Code(s): R10.13 - Epigastric pain (6) Right upper quadrant abdominal pain: Status: Acute Category: Medical Code(s): R10.11 - Right upper quadrant pain (7) Heart failure with reduced ejection fraction: Status: Acute Category: Medical Code(s): I50.20 - Unspecified systolic (congestive) heart failure (8) CAD (coronary artery disease): Status: Acute Qualifiers: Associated angina: without angina Coronary Disease-Associated Artery/Lesion type: [place] artery [place] vs. transplanted heart: [place] heart Qualified Code(s): I25.10 - Atherosclerotic heart disease of [place] coronary artery without angina pectoris Category: Medical Code(s): I25.10 - Atherosclerotic heart disease of [place] coronary artery without angina pectoris (9) Abnormal echocardiogram: Status: Acute Category: Medical Code(s): R93.1 - Abnormal findings on diagnostic imaging of heart and coronary circulation (10) Cardiomyopathy: Status: Acute Qualifiers: Cardiomyopathy type: other Qualified Code(s): I42.8 - Other cardiomyopathies Category: Medical Code(s): I42.9 - Cardiomyopathy, unspecified (11) Hypotension: Status: Acute Category: Medical Code(s): I95.9 - Hypotension, unspecified Plan BP has improved. Cardiac meds will need to be adjusted. He was able to tolerate his diet. LFT's and bilirubin were trending down yesterday. Can likely be discharged today. Will discusss with Dr. Avalos. Dr. Avalos entry - Saw patient, aOK for discharge today, f/u with cardiology in 1 week and with me in 2 weeks. Continue using LifeVest.
[2024-05-10] MEDS: POLYETHYLENE GLYCOL 3350 17 GM PACKET PO (08:34)
[2024-05-10] MEDS: PSYLLIUM UD PACKET 1 EACH PO (08:34)
--- NOTE | 2024-05-11 08:32 | P.DS_ITS ---
General Admission date:: 05/07/24 Discharge date: 05/10/24 HPI HPI HPI: Mr. Cross is an 88-year-old male with intermittent bouts of abdominal pain for months. This would usually last for 15 or 20 minutes and go away. Yesterday, he had a more intense bout of abdominal pain that persisted. He came to the emergency department yesterday and had CT scan of the abdomen and labs. His lab work showed a spike in liver chemistries with AST 476, ALT 326 and total bilirubin 1.7. His alkaline phosphatase was 430. His amylase today was 661 and his lipase yesterday was 14,186. His total bilirubin today is 2.1 and AST and ALT belia (626 and 4 and 78 respectively. Imaging of the abdomen showed mural wall thickening of the mid stomach with a normal-appearing duodenum. There was mild constipation. There was also a hiatal hernia. There appeared to be small nodular focus adjacent to the right lateral distal esophagus. The patient did have cholecystectomy several years ago (Mahendra Poon M.D.) for gallstones. On CAT scan the bile duct was mildly dilated to 10 mm but there was no visible choledocholithiasis. The patient does have intermittent episodes of severe diarrhea. The patient reports no prior episodes of pancreatitis or jaundice. The patient reports no fever but still has some epigastric abdominal pain. He reports no alcohol. Hospital Course Hospital Course Hospital Course: The patient was admitted and on 05/08/2024, his AST was 625 and his ALT was 478. His alkaline phosphatase was still elevated as was his amylase. His lipase had decreased from 14,196-3656. GI was consulted and the patient was scheduled for an MRCP for acute biliary pancreatitis/choledocholithiasis. GI wanted cardiac clearance, therefore cardiology saw the patient. They performed a limited echo which showed an EF of 30%. This was stable. They felt he was a high but acceptable risk to proceed with the ERCP. They felt the LifeVest could be removed with use of ZOLL defibrillator pads perioperatively. They wanted his LifeVest resumed postoperatively. Dr. Irving took the patient to the OR and performed an ERCP with biliary sphincterotomy and balloon sweep extraction of 4 common bile duct stones. He felt the patient should have clinical improvement with resolution of symptoms and normalization of biliary chemistries. The patient tolerated the procedure well. By 05/09/2024 his LFTs and bilirubin were decreasing. He was able to tolerate a clear liquid diet. His diet was advanced. His blood pressure was very low, therefore his cardiac meds were held and he was given a liter bolus of normal saline. He had constipation and was started on MiraLAX and Konsyl. By 05/10/2024 he was feeling well and tolerating his diet. His blood pressure has improved and he was stable to be discharged. He will follow-up with cardiology in [address] Avalos in 2 weeks. Exam Data for Last 24 hours Vital signs and Labs for Last 24 Hours: Temp Pulse Resp BP Pulse Ox O2 Del Method 97.9 F 50 L 18 108/43 L 98 Room Air 05/10/24 07:47 05/10/24 08:00 05/10/24 07:47 05/10/24 07:47 05/10/24 07:47 05/10/24 09:00 I & O for Last 24 hours: Intake & Output 05/08/24 05/09/24 05/10/24 05/11/24 11:59 11:59 11:59 11:59 Intake Total 190 / 190 1140 / 1140 1460 / 1460 Output Total 0 / 0 0 / 0 0 / 0 Balance 190 / 190 1140 / 1140 1460 / 1460 Weight 170 lb 170 lb 169 lb 8.215 oz Narrative: Constitutional Constitutional: no acute distress Comments: Sitting up in a chair at bedside and appears comfortable. *Routine HEENT Exam Head: Present normocephalic and atraumatic Eye: Present PERRL; Absent conjunctival icterus, scleral injection or conjunctivae pink ENT: Present mucous membranes moist and oropharynx clear *Routine Neck Exam Neck: Present supple; Absent carotid bruit, lymphadenopathy or thyromegaly Routine Chest/Breast/Axilla Exam Comments: He has a LifeVest on *Routine Respiratory Exam Respiratory: Present CTA bilaterally (And anteriorly and posteriorly) *Routine Cardiovascular Exam Cardiovascular: Present RRR and bradycardia *Routine Abdominal Exam Abdominal: Present soft and normoactive bowel sounds; Absent tenderness, distended or organomegaly *Routine Rectal Exam Rectal:: deferred *Routine Genitalia Exam Genitalia:: deferred *Routine Extremities Exam Extremities: Absent edema or calf tenderness *Routine Neurological Exam Neurological: Present alert and oriented X3 DS: Diagnosis Discharge Diagnosis (1) Choledocholithiasis: Status: Acute Code(s): K80.50 - Calculus of bile duct without cholangitis or cholecystitis without obstruction (2) Biliary acute pancreatitis: Status: Acute Code(s): K85.10 - Biliary acute pancreatitis without necrosis or infection Qualifiers: Acute pancreatitis complication: no infection or necrosis Qualified Code(s): K85.10 - Biliary acute pancreatitis without necrosis or infection (3) Gallstone pancreatitis: Status: Acute Code(s): K85.10 - Biliary acute pancreatitis without necrosis or infection (4) Transaminitis: Status: Acute Code(s): R74.01 - Elevation of levels of liver transaminase levels (5) Epigastric pain: Status: Acute Code(s): R10.13 - Epigastric pain (6) Right upper quadrant abdominal pain: Status: Acute Code(s): R10.11 - Right upper quadrant pain (7) Heart failure with reduced ejection fraction: Status: Acute Code(s): I50.20 - Unspecified systolic (congestive) heart failure (8) CAD (coronary artery disease): Status: Acute Code(s): I25.10 - Atherosclerotic heart disease of [place] coronary artery without angina pectoris Qualifiers: Coronary Disease-Associated Artery/Lesion type: [place] artery [place] vs. transplanted heart: [place] heart Associated angina: without angina Qualified Code(s): I25.10 - Atherosclerotic heart disease of [place] coronary artery without angina pectoris (9) Abnormal echocardiogram: Status: Acute Code(s): R93.1 - Abnormal findings on diagnostic imaging of heart and coronary circulation (10) Cardiomyopathy: Status: Acute Code(s): I42.9 - Cardiomyopathy, unspecified Qualifiers: Cardiomyopathy type: other Qualified Code(s): I42.8 - Other cardiomyopathies (11) Hypotension: Status: Acute Code(s): I95.9 - Hypotension, unspecified Meds Home Medications and Allergies Home Medications ?Medication ?Instructions ?Recorded ?Confirmed ?Type B-complex with vitamin C 1 tab PO DAILY 03/30/24 05/07/24 History cholecalciferol (vitamin D3) 25 25 mcg PO DAILY 03/30/24 05/07/24 History mcg (1,000 unit) capsule aspirin 81 mg tablet,delayed 81 mg PO DAILY #30 tabs 04/13/24 05/07/24 Rx release atorvastatin 40 mg tablet 40 mg PO DAILY #30 tabs 04/13/24 05/07/24 Rx empagliflozin 10 mg tablet 10 mg PO DAILY #30 tabs 04/18/24 05/07/24 Rx (Jardiance) sacubitril 49 mg-valsartan 51 mg 1 tab PO BID #60 tabs 04/24/24 05/07/24 Rx tablet (Entresto) New Prescriptions to Start Prescriptions: Allergies Allergy/AdvReac Type Severity Reaction Status Date / Time No Known Allergies Allergy Verified 04/24/24 09:50 Discharge Plan Disposition Patient Disposition: Home, Self-Care Condition: Good Discharge Order Discharge Orders: Discharge Order (Routine); Ordered 05/10/24 Ordered By: Clayton Avalos Follow up Plan Follow up with: Clayton Avalos MD [Primary Care Provider] - 05/23/24 10:00 am Negrito Irving II, MD [Staff Physician] - 06/07/24 2:30 pm Oracio Tolentino MD [Staff Physician] - 05/16/24 2:30 pm Prescriptions/Medication Reconciliation: Continued cholecalciferol (vitamin D3) 25 mcg (1,000 unit) capsule 25 mcg PO DAILY B-complex with vitamin C Tablet 1 tab PO DAILY sacubitril-valsartan [Entresto] 49-51 mg tablet 1 tab PO BID Qty: 60 2RF Jardiance 10 mg tablet 10 mg PO DAILY Qty: 30 2RF atorvastatin 40 mg Tablet 40 mg PO DAILY Qty: 30 0RF aspirin 81 mg Tablet,Delayed Release (Dr/Ec) 81 mg PO DAILY Qty: 30 0RF Discontinued furosemide [Lasix] 20 mg tablet 20 mg PO DAILY Qty: 90 3RF spironolactone 25 mg tablet 25 mg PO DAILY Patient Comments: TAKE ONE TABLET BY MOUTH EVERY DAY Problem Reconciliation Problems Reviewed?: Yes Patient Discharge Instructions ACTIVITY: Limited activity DIET: continue same diet Patient Instructions: Fat-Restricted Diet, DI for Epigastric Pain, DI for Duodenitis Print Language: [place] Providers Primary Care Provider: Clayton Avalos Admit Provider: Clayton Avalos Attending Provider: Clayton Avalos
--- NOTE | 2024-05-11 10:32 | SW/DCPLANNER ---
Spoke with patients on the phone. Patients stated that he is doing very well. Patients stated that they are aware of his upcoming appointments. Patients stated that she took his 2 medicines out that they discontinued. Patients stated they have no concerns or questions at this time. Corbin Powell
== END 2024-05-10 10:14 | disposition home or self-care (01) | DRG 439 ==
LOC: ER 18:56 → 2ND 19:25
PROVIDERS: Internal Medicine Gastroenterology; Admitting Provider Family Medicine; Emergency Provider Emergency Medicine; PCP Family Medicine; Visit Provider Family Medicine
PROC: 0F798ZZ Dilation of Common Bile Duct, Via Natural or Artificial Opening Endoscopic (ICD-10-PCS; CPT 43260; principal; 2024-05-08 15:00)
DX: K85.10 Biliary acute pancreatitis without necrosis or infection (principal); I50.22 Chronic systolic (congestive) heart failure; I11.0 Hypertensive heart disease with heart failure; K44.9 Diaphragmatic hernia without obstruction or gangrene; K80.50 Calculus of bile duct without cholangitis or cholecystitis without obstruction; I25.2 Old myocardial infarction; R74.01 Elevation of levels of liver transaminase levels; N40.0 Benign prostatic hyperplasia without lower urinary tract symptoms; Z90.49 Acquired absence of other specified parts of digestive tract; Z79.899 Other long term (current) drug therapy; Z79.82 Long term (current) use of aspirin; Z79.02 Long term (current) use of antithrombotics/antiplatelets; Z79.84 Long term (current) use of oral hypoglycemic drugs
CPT/HCPCS: 36415; 71045; 71275; 74174; 74181; 74330; 76000; 80053; 80074; 80329; 82150; 83605; 83690; 83880; 84484; 85025; 85610; 85730; 93005; 93308; 99285; J3490; C1889; J2250; J2270; J2405; J3010; J7030; J7042; Q9967

== ENCOUNTER 2024-06-07 14:59 | Outpatient (CLI) | payer MEDICARE, SELFPAY ==
[2024-06-07 15:45] LABS: Alanine Aminotransferase 22 U/L (12-78); Albumin Level 3.7 g/dl (3.5-5.0); Albumin/Globulin Ratio 1.5 (1.1-1.8); Alkaline Phosphatase 92 U/L (38-126); Anion Gap 4.7 mEq/L (5-15); Aspartate Amino Transferase 32 U/L (17-59); Bilirubin,Total 0.5 mg/dl (0.2-1.3); Blood Urea Nitrogen 13 mg/dl (9-20); Calcium 8.8 mg/dl (8.4-10.2); Carbon Dioxide 29 mmol/L (22.0-30.0); Chloride 107 mmol/L (98-107); Estimated Glomerular Filt Rate 71 ml/min (>60); GFR (African American) 86 ML/MIN (>60); Globulin 2.5 g/dL (1.3-3.2); Glucose 93 mg/dl (74-100); Lipase 89 U/L (23-300); Potassium 4.7 mmoL/L (3.5-5.1); Sodium 136 mmol/L (136-145); Total Protein,Serum 6.2 g/dl (6.3-8.2)
== END 2024-06-07 23:59 | disposition home or self-care (01) ==
LOC: LAB 15:00
PROVIDERS: PCP Family Medicine; Visit Provider Nurse Practitioner Family
DX: K85.10 Biliary acute pancreatitis without necrosis or infection (principal)
CPT/HCPCS: 36415; 80053; 83690

== ENCOUNTER 2024-07-06 14:09 | Outpatient (CLI) | payer MEDICARE, SELFPAY ==
--- NOTE | 2024-07-06 14:12 | CA_ITS ---
APPROVED REPORT EXAM: Limited 2D Echocardiogram with contrast Crowning Hammer Operator: Jessica Cunningham RCS, RVS Ht: 5 ft 10 in Wt: 187lbs BSA: 2.03 BP: 119/55 mmHg Indications: CM,, HFrEF, CAD, Cardiac arrythmia, HTN Echo Enhancing Agent Indication: Rule out thrombus Agent(s) / Amount(s) Used: Definity 2 cc 2D Dimensions IVSd 1.40 cm LVEF (Visual) 33.70 % PWd 1.44 cm LVDd 5.19 cm LVDs 4.35 cm M-Mode Dimensions LVDd 7.47 cm (3.5-5.7) LVDs 6.42 cm (3.5-5.7) IVSd 1.29 cm (0.6-1.1) PWd 1.13 cm (0.6-1.1) EF (Teich) 29.00% FS 14.10% EDV (Teich) 295.60 mL ESV (Teich) 210.00 mL Other Information Study Quality: Fair Conclusion This is a limited TTE to evaluate for LV thrombus. Limited windows are obtained. The left ventricle is moderately dilated. There is severe reduction in LV systolic function. There is severe global hypokinesis present. The mid to distal septal, inferoseptal, and apical LV gonzales are akinetic. The LV apex appears aneurysmal. LVEF is 25-30%. Administration of ultrasound enhancing agent demonstrates no evidence of LV thrombus. Electronically signed by : Joelle Conroy MD 07/08/2024 16:19:10
[2024-07-06] MEDS: DEFINITY US ECHO CONTRAST 2ML INJ 2 MG IV (14:59)
== END 2024-07-06 23:59 | disposition home or self-care (01) ==
LOC: RT 14:09
PROVIDERS: PCP Family Medicine; Visit Provider Physician Assistant
DX: I11.0 Hypertensive heart disease with heart failure (principal); I50.20 Unspecified systolic (congestive) heart failure; I42.8 Other cardiomyopathies
CPT/HCPCS: 93308; Q9957